=== PATIENT | female | born 1970 | race Two or more races ===

== ENCOUNTER 2016-12-05 09:30 | Emergency (ER) | payer OTHER ==
[~2016-12-05 09:30] MED LIST: /CELE20CA OR; /ESOM40CA OR; TRAM50TA2 OR
[2016-12-05] MEDS ORDERED: traMADol 50 MG TAB As Ordered ONE (09:58)
--- NOTE | 2016-12-05 13:10 | REP ---
Right lower extremity venous Doppler 12/05/2016 Indication: Right leg deformity and swelling. Comparison: None. TECHNIQUE: Color-flow Doppler spectral wave and portillo-scale imaging were used to evaluate the lower extremity vein, common femoral, superficial femoral, and popliteal venous levels. FINDINGS: There is normal compressibility of veins at the above-stated levels. There is normal response to augmentation of flow. The profunda femoris vein is also patent. IMPRESSION: No evidence of DVT in the right lower extremity. Signed by Brnadi Loza MD 12/06/2016 10:55 A
--- NOTE | 2016-12-05 13:14 | EDDOCDS ---
Nurse's Notes [facility] Name: Marge Miller Age: 45 yrs Sex: Female : 1970 Arrival Date: 12/05/2016 Time: 09:30 Bed PR Private MD: Barrie Walker R. Diagnosis: Pain in right lower leg-Negative DVT U/S Presentation: 12/05 09:36 Presenting complaint: Patient states: Pain starting 2 weeks ago to posterior right jo3 calf. Pain is non-traumatic and radiates to anterior lower leg intermittently. Unsure if there is increased redness or swelling. Adult Sepsis Screening: The patient does not have new or worsening altered mentation. Patient's respiratory rate is less than 22. Systolic blood pressure is greater than 100. Patient has a qSOFA score of 0- Negative Sepsis Screen. Suicide/Homicide risk assessment- the patient denies having any suicidal and/or homicidal ideations and does not present with any other emotional, behavioral or mental health complaints. Status: Patient is not a child and family services worker or dependent. Transition of care: patient was not received from another setting of care. 09:36 Acuity: DEACON Level 3 jo3 09:36 Method Of Arrival: Walkin/Carried/Asstd jo3 Triage Assessment: 09:39 General: Appears in no apparent distress, comfortable, Behavior is appropriate for age, jo3 cooperative. Pain: Pain currently is 8 out of 10 on a pain scale. At worst was 10 out of 10 on a pain scale. HIV screening NA for this visit Offered previously. Neurological: Level of Consciousness is awake, alert, Oriented to person, place, time. Respiratory: Airway is patent Respiratory effort is even, unlabored. Derm: Skin is pink, warm & dry. 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 Nexium 40 mg Oral cpDR 1 cap once daily 2. 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 No barriers to communication noted, The patient speaks fluent Yakut, Speaks appropriately for age. - Family history: Not pertinent. - : The pt / caregiver states he / she is not on anticoagulants. Home medication list is obtained from the patient. - Exposure Risk Screening:: None identified. Screenin:11 Screening information is obtained from the patient. Fall risk: No risks identified. jo3 Assistance ADL's: requires no assistance with activities of daily living. Abuse/DV Screen: The patient / caregiver reports he/she is: not in a situation that causes fear, pain or injury. Nutritional screening: No deficits noted. Advance Directives: There is no active DNR order. home support is adequate. Assessment: 13:11 General: Appears in no apparent distress, comfortable, Behavior is appropriate for age, jo3 cooperative. Neurological: Level of Consciousness is awake, alert, Oriented to person, place, time. Respiratory: Airway is patent Respiratory effort is even, unlabored. Vital Signs: 09:33 BP 142 / 82 LA Sitting (auto/lg); Pulse 90 LA; Resp 18 S; Temp 98.0(O); Pulse Ox 99% on mt4 R/A; Weight 136.08 kg (R); Height 5 ft. 5 in. (165.10 cm) (R); Pain 10/10; 13:00 BP 140 / 73; Pulse 81; Resp 16; Temp 98.3(TE); Pulse Ox 99% on R/A; Pain 8/10; sew 09:33 Body Mass Index 49.92 (136.08 kg, 165.10 cm) pr4 Vitals: 09:33 Log In Time: December 05, 2016 at 09:30. pr4 ED Course: 09:32 Patient visited by Melany Khan. mt4 09:32 Patient moved to Waiting mt4 09:33 Barrie Walker is Private Physician. mt4 09:34 Patient moved to Pre RCE mt4 09:38 Triage Initiated jo3 09:41 Patient visited by Yisel Aparicio RN. jo3 09:41 Patient moved to Triage 2 jo3 09:43 [facility] ef1 09:43 Chidi Strickland MD is Attending Physician. ef1 09:43 Patient visited by Luciana Gibson PA-C. ef1 09:54 [facility] Payment Agreement was scanned into [employer] and attached to record. lg 09:59 Patient moved to TR1 kr3 10:18 Patient visited by Luciana Gibson PA-C. ef1 10:57 Patient visited by Luciana Gibson PA-C. ef1 11:06 Patient moved to Ultrasound sm5 11:54 Patient visited by Luciana Gibson PA-C. ef1 11:54 Patient moved to TR1 sm5 12:27 Patient visited by Luciana Gibson PA-C. ef1 12:47 Patient moved to PR1 / 25 jo3 12:48 Barrie Walker is Referral Physician. ef1 12:48 [facility]. ef1 13:00 Patient visited by Joselin Landis. sew 13:11 The patient / caregiver is instructed regarding the plan of care and ED course. jo3 13:11 No IV's were initiated during this patient's visit. No procedures done that require jo3 assistance. Administered Medications: 10:00 Drug: traMADol 50 mg [tramadol 50 mg tablet (1 tabs)] Route: PO; jo3 Order Results: There are currently no results for this order. Outcome: 12:48 Discharge ordered by Provider. ef1 13:11 Discharge Assessment: Patient awake, alert and oriented x 3. No cognitive and/or jo3 functional deficits noted. Patient verbalized understanding of disposition instructions. patient administered narcotics - yes. Pt provided with safe discharge. The following High Risk Discharge criteria are identified: None. Discharged to home ambulatory, with friend. Condition: stable Condition: improved. Discharge instructions given to patient, Instructed on discharge instructions, follow up and referral plans. medication usage, Demonstrated understanding of instructions, medications, Pt was receptive of discharge instructions/ teaching. Prescriptions given X 2, Work note provided to patient. Ultrasound Study completed. Property sent home with patient. :Personal belongings accompany Pt. 13:13 Patient left the ED. jo3 Signatures: Michael Mccarthy, Law Reg Eva Balbuena 5 Alexandria Ortiz RN RN nancy3 Yisel Aparicio RN RN jed3 Melany Khan pr4 Luciana Gibson PA-C PA-C ef1 Joselin Landis sew MTDD
--- NOTE | 2016-12-05 13:14 | EDDOCDS ---
Physician Documentation [facility] Name: Marge Miller Age: 45 yrs Sex: Female : 1970 Arrival Date: 12/05/2016 Time: 09:30 Bed PR Private MD: Barrie Walker R. Disposition: 12/05/16 12:48 Discharged to Home/Self Care. Impression: Pain in right lower leg - Negative DVT U/S. - Condition is Stable. - Discharge Instructions: Musculoskeletal Pain. - Prescriptions for Zanaflex 4 mg Oral Tablet - take 1 tablet by ORAL route At bedtime As needed Do not take while driving/operating heavy machinery, will cause drowsiness.; 20 tablet. Tramadol 50 mg Oral Tablet - take 0.5 tablet by ORAL route 4 times per day MDD: 2 tabs; 10 tablet. - Medication Reconciliation, Work Release Form - 3 day, Local Pharmacy Hours form. - Follow up: Barrie Walker; When: 1 - 2 days; Reason: Recheck today's complaints, Continuance of care. Follow up: Emergency Department; Reason: Worsening of conditions. Follow up: [facility]; When: Call to arrange an appointment; Reason: Further diagnostic work-up, Recheck today's complaints, Continuance of care. - Problem is new. - Symptoms have improved. Historical: - Allergies: Erythromycin; - Home Meds: 1. Nexium 40 mg Oral cpDR 1 cap once daily 2. 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 No barriers to communication noted, The patient speaks fluent Malay, Speaks appropriately for age. - Family history: Not pertinent. - : The pt / caregiver states he / she is not on anticoagulants. Home medication list is obtained from the patient. - Exposure Risk Screening:: None identified. 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 5 in. (165.10 cm) (R); Pain 10/10; 13:00 BP 140 / 73; Pulse 81; Resp 16; Temp 98.3(TE); Pulse Ox 99% on R/A; Pain 8/10; sew 09:33 Body Mass Index 49.92 (136.08 kg, 165.10 cm) mt4 MDM: 09:50 Financial registration complete. lg 09:52 traMADol 50 mg PO once ordered. ef1 09:53 DVT US Lower Ordered. EDMS 09:54 [facility] Payment Agreement was scanned into [employer] and attached to record. lg Administered Medications: 10:00 Drug: traMADol 50 mg [tramadol 50 mg tablet (1 tabs)] Route: PO; jo3 Signatures: Dispatcher [employer] EDVT Michael Mccarthy Reg Reg lg Yisel Aparicio,JUAN RN jo3 Luciana Gibson PA-C PA-C ef1 The chart was reviewed and I authenticate all verbal orders and agree with the evaluation and treatment provided.Attachments: 09:54 [facility] Payment Agreement lg MTDD
--- NOTE | 2016-12-07 14:13 | EDDOCDS ---
Physician Documentation [facility] Name: Marge Miller Age: 45 yrs Sex: Female : 1970 Arrival Date: 12/05/2016 Time: 09:30 Bed PR Private MD: Barrie Walker R. Disposition: 12/05/16 12:48 Discharged to Home/Self Care. Impression: Pain in right lower leg - Negative DVT U/S. - Condition is Stable. - Discharge Instructions: Musculoskeletal Pain. - Prescriptions for Zanaflex 4 mg Oral Tablet - take 1 tablet by ORAL route At bedtime As needed Do not take while driving/operating heavy machinery, will cause drowsiness.; 20 tablet. Tramadol 50 mg Oral Tablet - take 0.5 tablet by ORAL route 4 times per day MDD: 2 tabs; 10 tablet. - Medication Reconciliation, Work Release Form - 3 day, Local Pharmacy Hours form. - Follow up: Barire Walker; When: 1 - 2 days; Reason: Recheck today's complaints, Continuance of care. Follow up: Emergency Department; Reason: Worsening of conditions. Follow up: [facility]; When: Call to arrange an appointment; Reason: Further diagnostic work-up, Recheck today's complaints, Continuance of care. - Problem is new. - Symptoms have improved. Historical: - Allergies: Erythromycin; - Home Meds: 1. Nexium 40 mg Oral cpDR 1 cap once daily 2. 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 No barriers to communication noted, The patient speaks fluent Bengali, Speaks appropriately for age. - Family history: Not pertinent. - : The pt / caregiver states he / she is not on anticoagulants. Home medication list is obtained from the patient. - Exposure Risk Screening:: None identified. 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 5 in. (165.10 cm) (R); Pain 10/10; 13:00 BP 140 / 73; Pulse 81; Resp 16; Temp 98.3(TE); Pulse Ox 99% on R/A; Pain 8/10; sew 09:33 Body Mass Index 49.92 (136.08 kg, 165.10 cm) mt4 MDM: 09:50 Financial registration complete. lg 09:52 traMADol 50 mg PO once ordered. ef1 09:53 DVT US Lower Ordered. EDMS 09:54 [facility] Payment Agreement was scanned into [employer] and attached to record. lg 21:13 T-Sheet-- Draft Copy was scanned into [employer] and attached to record. klr Administered Medications: 10:00 Drug: traMADol 50 mg [tramadol 50 mg tablet (1 tabs)] Route: PO; jo3 Signatures: Dispatcher [employer]Host EDKY Michael Mccarthy, Law Reg Yisel Aparicio RN RN jo3 Luciana Gibson, PA-C PA-C ef1 Keke Cordero klr The chart was reviewed and I authenticate all verbal orders and agree with the evaluation and treatment provided.Attachments: 09:54 [facility] Payment Agreement lg 21:13 T-Sheet-- Draft Copy klr Chart Complete MTDD
--- NOTE | 2016-12-07 14:14 | EDDOCDS ---
Physician Documentation [facility] Name: Marge Miller Age: 45 yrs Sex: Female : 1970 Arrival Date: 12/05/2016 Time: 09:30 Bed PR Private MD: Barrie Walker R. Disposition: 12/05/16 12:48 Discharged to Home/Self Care. Impression: Pain in right lower leg - Negative DVT U/S. - Condition is Stable. - Discharge Instructions: Musculoskeletal Pain. - Prescriptions for Zanaflex 4 mg Oral Tablet - take 1 tablet by ORAL route At bedtime As needed Do not take while driving/operating heavy machinery, will cause drowsiness.; 20 tablet. Tramadol 50 mg Oral Tablet - take 0.5 tablet by ORAL route 4 times per day MDD: 2 tabs; 10 tablet. - Medication Reconciliation, Work Release Form - 3 day, Local Pharmacy Hours form. - Follow up: Barrie Walker; When: 1 - 2 days; Reason: Recheck today's complaints, Continuance of care. Follow up: Emergency Department; Reason: Worsening of conditions. Follow up: [facility]; When: Call to arrange an appointment; Reason: Further diagnostic work-up, Recheck today's complaints, Continuance of care. - Problem is new. - Symptoms have improved. Historical: - Allergies: Erythromycin; - Home Meds: 1. Nexium 40 mg Oral cpDR 1 cap once daily 2. 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 No barriers to communication noted, The patient speaks fluent Tamazight, Speaks appropriately for age. - Family history: Not pertinent. - : The pt / caregiver states he / she is not on anticoagulants. Home medication list is obtained from the patient. - Exposure Risk Screening:: None identified. 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 5 in. (165.10 cm) (R); Pain 10/10; 13:00 BP 140 / 73; Pulse 81; Resp 16; Temp 98.3(TE); Pulse Ox 99% on R/A; Pain 8/10; sew 09:33 Body Mass Index 49.92 (136.08 kg, 165.10 cm) mt4 MDM: 09:50 Financial registration complete. lg 09:52 traMADol 50 mg PO once ordered. ef1 09:53 DVT US Lower Ordered. EDMS 09:54 [facility] Payment Agreement was scanned into [employer] and attached to record. lg 21:13 T-Sheet-- Draft Copy was scanned into [employer] and attached to record. klr Administered Medications: 10:00 Drug: traMADol 50 mg [tramadol 50 mg tablet (1 tabs)] Route: PO; jo3 Signatures: Dispatcher [employer] EDMO Michael Mccarthy, Law Reg Yisel Aparicio RN RN jo3 Luciana Gibson, PA-C PA-C ef1 Keke Cordero klr The chart was reviewed and I authenticate all verbal orders and agree with the evaluation and treatment provided.Attachments: 09:54 [facility] Payment Agreement lg 21:13 T-Sheet-- Draft Copy klr Chart Complete MTDD
--- NOTE | 2016-12-07 14:14 | EDDOCDS ---
Nurse's Notes [facility] Name: Marge Miller Age: 45 yrs Sex: Female : 1970 Arrival Date: 12/05/2016 Time: 09:30 Bed PR Private MD: Barrie Walker R. Diagnosis: Pain in right lower leg-Negative DVT U/S Presentation: 12/05 09:36 Presenting complaint: Patient states: Pain starting 2 weeks ago to posterior right jo3 calf. Pain is non-traumatic and radiates to anterior lower leg intermittently. Unsure if there is increased redness or swelling. Adult Sepsis Screening: The patient does not have new or worsening altered mentation. Patient's respiratory rate is less than 22. Systolic blood pressure is greater than 100. Patient has a qSOFA score of 0- Negative Sepsis Screen. Suicide/Homicide risk assessment- the patient denies having any suicidal and/or homicidal ideations and does not present with any other emotional, behavioral or mental health complaints. Status: Patient is not a student services advisor or dependent. Transition of care: patient was not received from another setting of care. 09:36 Acuity: DEACON Level 3 jo3 09:36 Method Of Arrival: Walkin/Carried/Asstd jo3 Triage Assessment: 09:39 General: Appears in no apparent distress, comfortable, Behavior is appropriate for age, jo3 cooperative. Pain: Pain currently is 8 out of 10 on a pain scale. At worst was 10 out of 10 on a pain scale. HIV screening NA for this visit Offered previously. Neurological: Level of Consciousness is awake, alert, Oriented to person, place, time. Respiratory: Airway is patent Respiratory effort is even, unlabored. Derm: Skin is pink, warm & dry. 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 Nexium 40 mg Oral cpDR 1 cap once daily 2. 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 No barriers to communication noted, The patient speaks fluent Maltese, Speaks appropriately for age. - Family history: Not pertinent. - : The pt / caregiver states he / she is not on anticoagulants. Home medication list is obtained from the patient. - Exposure Risk Screening:: None identified. Screenin:11 Screening information is obtained from the patient. Fall risk: No risks identified. jo3 Assistance ADL's: requires no assistance with activities of daily living. Abuse/DV Screen: The patient / caregiver reports he/she is: not in a situation that causes fear, pain or injury. Nutritional screening: No deficits noted. Advance Directives: There is no active DNR order. home support is adequate. Assessment: 13:11 General: Appears in no apparent distress, comfortable, Behavior is appropriate for age, jo3 cooperative. Neurological: Level of Consciousness is awake, alert, Oriented to person, place, time. Respiratory: Airway is patent Respiratory effort is even, unlabored. Vital Signs: 09:33 BP 142 / 82 LA Sitting (auto/lg); Pulse 90 LA; Resp 18 S; Temp 98.0(O); Pulse Ox 99% on mt4 R/A; Weight 136.08 kg (R); Height 5 ft. 5 in. (165.10 cm) (R); Pain 10/10; 13:00 BP 140 / 73; Pulse 81; Resp 16; Temp 98.3(TE); Pulse Ox 99% on R/A; Pain 8/10; sew 09:33 Body Mass Index 49.92 (136.08 kg, 165.10 cm) id4 Vitals: 09:33 Log In Time: December 05, 2016 at 09:30. id4 ED Course: 09:32 Patient visited by Melany Khan. mt4 09:32 Patient moved to Waiting mt4 09:33 Barrie Walker is Private Physician. mt4 09:34 Patient moved to Pre RCE mt4 09:38 Triage Initiated jo3 09:41 Patient visited by Yisel Aparicio RN. jo3 09:41 Patient moved to Triage 2 jo3 09:43 Luciana Gibson PA-C [facility]. ef1 09:43 Chidi Strickland MD is Attending Physician. ef1 09:43 Patient visited by Luciana Gibson PA-C. ef1 09:54 [facility] [place] [facility] Payment Agreement was scanned into [employer] and attached to record. lg 09:59 Patient moved to TR1 kr3 10:18 Patient visited by Luciana Gibson PA-C. ef1 10:57 Patient visited by Luciana Gibson PA-C. ef1 11:06 Patient moved to Ultrasound sm5 11:54 Patient visited by Luciana Gibson PA-C. ef1 11:54 Patient moved to TR1 sm5 12:27 Patient visited by Luciana Gibson PA-C. ef1 12:47 Patient moved to PR1 / 25 jo3 12:48 Barrie Walker is Referral Physician. ef1 12:[facility]. ef1 13:00 Patient visited by Joselin Landis. sew 13:11 The patient / caregiver is instructed regarding the plan of care and ED course. jo3 13:11 No IV's were initiated during this patient's visit. No procedures done that require jo3 assistance. 13:44 DVT US Lower Returned. EDHI 21:13 T-Sheet-- Draft Copy was scanned into [employer] and attached to record. klr Administered Medications: 10:00 Drug: traMADol 50 mg [tramadol 50 mg tablet (1 tabs)] Route: PO; jo3 Order Results: Radiology Order: DVT US Lower Test: DVT US Lower REASON FOR EXAMINATION: Deformity/Swelling; Right lower extremity venous Doppler 12/05/2016; ; Indication: Right leg deformity and swelling.; ; Comparison: None.; ; TECHNIQUE: Color-flow Doppler spectral wave and portillo-scale imaging were used to; evaluate the lower extremity vein, common femoral, superficial femoral, and; popliteal venous levels.; ; FINDINGS: There is normal compressibility of veins at the above-stated levels.; There is normal response to augmentation of flow. The profunda femoris vein is; also patent.; ; IMPRESSION:; ; No evidence of DVT in the right lower extremity.; ; ; ; ; Signed by; Brandi Loza MD 12/06/2016 10:55 A; Outcome: 12:48 Discharge ordered by Provider. ef1 13:11 Discharge Assessment: Patient awake, alert and oriented x 3. No cognitive and/or jo3 functional deficits noted. Patient verbalized understanding of disposition instructions. patient administered narcotics - yes. Pt provided with safe discharge. The following High Risk Discharge criteria are identified: None. Discharged to home ambulatory, with friend. Condition: stable Condition: improved. Discharge instructions given to patient, Instructed on discharge instructions, follow up and referral plans. medication usage, Demonstrated understanding of instructions, medications, Pt was receptive of discharge instructions/ teaching. Prescriptions given X 2, Work note provided to patient. Ultrasound Study completed. Property sent home with patient. :Personal belongings accompany Pt. 13:13 Patient left the ED. jo3 Signatures: Dispatcher [employer] EDMS Michael Mccarthy, Reg Reg lg Eva Meyer 5 Alexandria Ortiz,RN RN kr3 Yisel AparicioRN RN jo3 Melany Khan mt4 Luciana Gibson, PA-C PA-C efOlena Landis, Keke Whiteside Chart Complete MTDD
== END 2016-12-05 13:13 | disposition home or self-care (01) ==
LOC: M ED 09:30
DX: M79.661 Pain in right lower leg (principal); K21.9 Gastro-esophageal reflux disease without esophagitis; K91.1 Postgastric surgery syndromes; F17.210 Nicotine dependence, cigarettes, uncomplicated; Z79.899 Other long term (current) drug therapy; Z88.1 Allergy status to other antibiotic agents

== ENCOUNTER → 2017-03-21 | Outpatient (CLI) | payer OTHER ==
--- NOTE | 2017-03-21 10:32 | REPMRS ---
Patient History The patient states she had a clinical breast exam in 03/30 No known family history of cancer. Benign FNA biopsy of both breasts, 1993. Digital Woman Screen Mammo: March 21, 2017 - Exam #: [id number] Bilateral CC and MLO view(s) were taken. Technologist: Jenifer Almonte, Technologist Prior study comparison: December 10, 2015, digital woman screen mammo performed at [facility]. February 04, 2014, digital woman screen mammo performed at [facility] to [facility]. FINDINGS: There are scattered fibroglandular densities. There has been no change in the appearance of the mammogram from the prior studies. There is a mild amount of residual fibroglandular tissue which is fairly symmetric. There is no interval development of dominant mass, architectural distortion, or clustered microcalcification suggestive of malignancy. ASSESSMENT: BI-RADS/ACR category 1 mammogram. Negative. Recommendation Routine screening mammogram in 1 year (for women over age 40). This mammogram was interpreted with the aid of an FDA-approved computer-aided dectection system. Electronically Signed By: Gilson Aguayo MD 03/21/17 [id number]
== END ==
LOC: M WHC 08:30
PROVIDERS: ATTEND Nurse Practitioner Family
DX: Z12.31 Encounter for screening mammogram for malignant neoplasm of breast (principal)

== ENCOUNTER → 2017-03-21 | Outpatient (REF) | payer OTHER | LOC: M SFHCWAGY 10:40 | PROVIDERS: ATTEND Nurse Practitioner Family | DX: Z01.419 Encounter for gynecological examination (general) (routine) without abnormal findings (principal) ==

== ENCOUNTER → 2017-04-13 | Outpatient (REF) | payer OTHER | LOC: M SFHCWAGY 11:01 | PROVIDERS: ATTEND Nurse Practitioner Family | DX: R87.619 Unspecified abnormal cytological findings in specimens from cervix uteri (principal) ==

== ENCOUNTER → 2017-04-27 | Outpatient (CLI) | payer OTHER | LOC: M WHC 08:12 | PROVIDERS: ATTEND Nurse Practitioner Family | DX: N92.0 Excessive and frequent menstruation with regular cycle (principal) ==

== ENCOUNTER 2017-07-24 14:22 | Emergency (ER) | payer OTHER ==
[~2017-07-24] VITALS: Ht 162.6 cm; Wt 145.4 kg
[2017-07-24] MEDS ORDERED: ALBU17IN INH ×2 (14:36→17:10)
[2017-07-24] MEDS ORDERED: GABA-283 PO (14:37)
--- NOTE | 2017-07-24 16:24 | REP ---
Clinical: Cough and wheeze. Technique: PA and lateral. Comparison: 06/01/2011. Findings: Mediastinum and cardiac silhouette are normal. Lung soriano are clear. No focal consolidation, effusion, or pneumothorax. Skeletal structures are intact. Impression: No acute cardiopulmonary process or focal consolidation Signed by Lio Ochoa MD 07/24/2017 04:15 P
[2017-07-24 16:34] LABS: BASO % 0.4 % (0.0-1.0); EOS # 0.1 K/mm3 (0.0-0.50); LARGE UNSTAINED CELL # 0.1 K/mm3 (0.0-0.4); LARGE UNSTAINED CELL % 1.7 % (0.0-4.0); LYMPH # 2.8 K/mm3 (1.5-4.5); LYMPH % 35.3 % (24.0-44.0); MEAN CORPUSCULAR HGB CONC 33.8 g/dl (32.0-36.5); MEAN CORPUSCULAR VOLUME 94.6 fl (80.0-96.0); MONO # 0.4 K/mm3 (0.0-0.8); MONO % 4.9 % (0.0-5.0); NEUTROPHILS # 4.3 K/mm3 (1.8-7.7); NEUTROPHILS % 56.7 % (36.0-66.0); PLATELET COUNT, AUTOMATED 265 k/mm3 (150-450); RED CELL DISTRIBUTION WIDTH 12.8 % (11.5-14.5); WHITE BLOOD COUNT 7.6 K/mm3 (4.0-10.0)
[2017-07-24 16:54] LABS: ALBUMIN 3.7 GM/DL (3.2-5.2); ALBUMIN/GLOBULIN RATIO 0.97 (1.00-1.93); ALKALINE PHOSPHATASE 76 U/L (45-117); ALT/SGPT 23 U/L (12-78); ANION GAP 7 MEQ/L (8-16); AST/SGOT 14 U/L (15-37); BILIRUBIN,DIRECT < 0.1 MG/DL (0.0-0.2); BILIRUBIN,TOTAL 0.3 MG/DL (0.2-1.0); BLOOD UREA NITROGEN 14 MG/DL (7-18); CARBON DIOXIDE LEVEL 25 MEQ/L (21-32); CHLORIDE LEVEL 108 MEQ/L (98-107); CREATININE FOR GFR 0.75 MG/DL (0.55-1.02); GLOMERULAR FILTRATION RATE > 60.0 (>58); GLUCOSE, FASTING 91 MG/DL (70-105); POTASSIUM SERUM 3.9 MEQ/L (3.5-5.1); SODIUM LEVEL 140 MEQ/L (136-145); TOTAL PROTEIN 7.5 GM/DL (6.4-8.2)
[2017-07-24 17:10] VITALS: BP 136/72
--- NOTE | 2017-07-24 18:26 | ECGEPIP ---
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
== END 2017-07-24 17:12 | disposition home or self-care (01) ==
LOC: M ED 14:22
DX: K21.9 Gastro-esophageal reflux disease without esophagitis (principal); K31.89 Other diseases of stomach and duodenum; F17.210 Nicotine dependence, cigarettes, uncomplicated; E88.1 Lipodystrophy, not elsewhere classified; Z91.048 Other nonmedicinal substance allergy status; Z79.899 Other long term (current) drug therapy

== ENCOUNTER 2017-10-10 17:02 | Emergency (ER) | payer OTHER ==
[~2017-10-10] VITALS: Ht 165.1 cm; Wt 159.1 kg
[~2017-10-10 17:02] MED LIST changes: +ALBU17IN INH; +GABA-283 PO
--- NOTE | 2017-10-10 18:41 | REP ---
Duplex extremity venous ultrasound: Right lower extremity edilberto History: Right leg pain times 1 month. Findings: The deep veins are anechoic and fully compressible from the groin to the popliteal fossa in the right lower extremity. Color flow imaging is homogeneous. Spectral Doppler interrogation demonstrates intact respiratory variation in flow and normal manual augmentation of flow. There is no evidence of deep vein thrombosis. Impression: Negative right lower extremity duplex venous ultrasound. No evidence of deep vein thrombosis. Signed by Wild Livingston MD 10/10/2017 06:32 P
[2017-10-10] MEDS ORDERED: ALBUTEROL SULFATE 2.5 MG/0.5 ML INH NEB SOLN NEB ONE (20:45)
[2017-10-10 21:04] LABS: BASO % 0.1 % (0.0-1.0); EOS % 0.1 % (0.0-3.0); IMMATURE GRANULOCYTE % 0.2 % (0-0); LYMPH # 2.3 10^3/uL (1.5-4.5); LYMPH % 26.6 % (24.0-44.0); MEAN CORPUSCULAR HEMOGLOBIN 31.1 pg (27.0-33.0); MEAN CORPUSCULAR HGB CONC 34.1 g/dl (32.0-36.5); MEAN CORPUSCULAR VOLUME 91.4 fl (80.0-96.0); MONO # 0.5 10^3/uL (0.0-0.8); MONO % 5.3 % (0.0-5.0); NEUTROPHILS # 5.8 10^3/uL (1.8-7.7); NEUTROPHILS % 67.7 % (36.0-66.0); PLATELET COUNT, AUTOMATED 281 10^3/uL (150-450); RED CELL DISTRIBUTION WIDTH 12.7 % (11.5-14.5); WHITE BLOOD COUNT 8.5 10^3/uL (4.0-10.0)
[2017-10-10 21:23] LABS: ANION GAP 8 MEQ/L (8-16); BLOOD UREA NITROGEN 11 MG/DL (7-18); CALCIUM LEVEL 8.9 MG/DL (8.5-10.1); CARBON DIOXIDE LEVEL 26 MEQ/L (21-32); CHLORIDE LEVEL 107 MEQ/L (98-107); CREATININE FOR GFR 0.76 MG/DL (0.55-1.02); GLOMERULAR FILTRATION RATE > 60.0 (>58); GLUCOSE, FASTING 100 MG/DL (70-105); SODIUM LEVEL 141 MEQ/L (136-145)
[2017-10-10] MEDS ORDERED: AUGM875T28 PO (21:31)
[2017-10-10] MEDS ORDERED: PROAAER10 INH (21:35)
[2017-10-10 21:53] VITALS: BP 126/79
[2017-10-10] MEDS ORDERED: AUGMENTIN 875 MG TAB PO ONE (22:00)
== END 2017-10-10 21:57 | disposition home or self-care (01) ==
LOC: M ED 17:02
DX: J02.0 Streptococcal pharyngitis (principal); J20.9 Acute bronchitis, unspecified; E86.0 Dehydration; Z72.0 Tobacco use

== ENCOUNTER 2019-04-15 16:33 | Emergency (ER) | payer BC, OTHER ==
[~2019-04-15] VITALS: Ht 165.1 cm; Wt 134.1 kg
[~2019-04-15 16:33] MED LIST changes: -/CELE20CA OR; -/ESOM40CA OR; +AUGM875T28 PO; +CELE1CAP4 OR; -GABA-283 PO; +GABA-845 PO; +NEXI1CAP3 OR; +PROAAER10 INH
[2019-04-15 17:07] LABS: BASO % 0.7 % (0.0-1.0); EOS # 0.4 10^3/uL (0.0-0.50); EOS % 6.5 % (0.0-3.0); HEMATOCRIT 41.5 % (36.0-47.0); LYMPH # 2.4 10^3/uL (1.5-4.5); LYMPH % 39.7 % (24.0-44.0); MEAN CORPUSCULAR HEMOGLOBIN 31.8 pg (27.0-33.0); MEAN CORPUSCULAR HGB CONC 33.7 g/dl (32.0-36.5); MEAN CORPUSCULAR VOLUME 94.3 fl (80.0-96.0); MONO # 0.4 10^3/uL (0.0-0.8); MONO % 6.2 % (0.0-5.0); NEUTROPHILS # 2.8 10^3/uL (1.8-7.7); NEUTROPHILS % 46.7 % (36.0-66.0); PLATELET COUNT, AUTOMATED 244 10^3/uL (150-450)
[2019-04-15 17:30] LABS: ALBUMIN 3.3 GM/DL (3.2-5.2); ALT/SGPT 29 U/L (12-78); BILIRUBIN,DIRECT < 0.1 MG/DL (0.0-0.2); BILIRUBIN,TOTAL 0.2 MG/DL (0.2-1.0); BLOOD UREA NITROGEN 13 MG/DL (7-18); CALCIUM LEVEL 8.9 MG/DL (8.5-10.1); CARBON DIOXIDE LEVEL 28 MEQ/L (21-32); CHLORIDE LEVEL 109 MEQ/L (98-107); CREATININE FOR GFR 0.81 MG/DL (0.55-1.30); GLOMERULAR FILTRATION RATE > 60.0 (>51); GLUCOSE, FASTING 125 MG/DL (70-100); LIPASE 120 U/L (73-393); POTASSIUM SERUM 4.5 MEQ/L (3.5-5.1); SODIUM LEVEL 143 MEQ/L (136-145); TOTAL PROTEIN 6.7 GM/DL (6.4-8.2)
[2019-04-15] MEDS ORDERED: SYMB16INH INH ×2 (18:44→18:49)
[2019-04-15] MEDS ORDERED: PRED20TA PO (18:48)
[2019-04-15] MEDS ORDERED: CARA1TAB6 PO (18:48)
[2019-04-15] MEDS ORDERED: OMEP40CA2 PO (18:48)
[2019-04-15] MEDS ORDERED: CLAR10CA3 PO (18:48)
[2019-04-15 19:02] VITALS: BP 134/61
== END 2019-04-15 19:13 | disposition home or self-care (01) ==
LOC: M ED 16:33
DX: Z76.0 Encounter for issue of repeat prescription (principal); J45.909 Unspecified asthma, uncomplicated; K21.9 Gastro-esophageal reflux disease without esophagitis; Z79.899 Other long term (current) drug therapy; F17.210 Nicotine dependence, cigarettes, uncomplicated

== ENCOUNTER → 2019-08-22 | Outpatient (CLI) | payer BC ==
[~2019-08-22] MED LIST changes: +CARA1TAB6 PO; +CLAR10CA3 PO; +OMEP40CA2 PO; +PRED20TA PO; +SYMB16INH INH
--- NOTE | 2019-08-22 12:32 | REP ---
Gastric emptying nuclear scintigraphy: History: Right upper quadrant pain. Gastric para cyst. Technique: 1.1 mCi of technetium-99m sulfur colloid was ingested in two scrambled eggs and 6 ounces of water and sequential anterior and posterior images are acquired for an 89-minute imaging observation period. Regions of interest are drawn around the stomach to plot gastric emptying. Scintigraphic findings: Expected T1/2 is 90 minutes. 44 % emptying is observed in this patient during the 89-minute imaging observation period, for a calculated T1/2 in this patient of 94 minutes. Impression: Normal gastric emptying. Electronically Signed by Wild Livingston MD 08/22/2019 12:23 P
== END ==
LOC: M RAD 08:50
PROVIDERS: ATTEND Internal Medicine Gastroenterology
DX: K31.84 Gastroparesis (principal); K30 Functional dyspepsia; R10.11 Right upper quadrant pain
CPT/HCPCS: 78264; A9541

== ENCOUNTER → 2019-12-20 | Outpatient (REF) | payer BC ==
[~2019-12-20] MED LIST changes: -OMEP40CA2 PO; +OMEP40CA97 PO
== END ==
LOC: M SFHCLERA 08:20
PROVIDERS: ATTEND Nurse Practitioner Family
DX: Z53.9 Procedure and treatment not carried out, unspecified reason (principal)

== ENCOUNTER 2020-05-20 08:27 | Emergency (ER) | payer BC ==
[~2020-05-20] VITALS: Ht 162.6 cm; Wt 150.3 kg
[2020-05-20] MEDS ORDERED: LIDOCAINE 5% (LIDODERM) PATCH TD ONE (09:45)
[2020-05-20] MEDS ORDERED: CYCLOBENZAPRINE 10MG TABLET PO ONE (09:45)
[2020-05-20] MEDS ORDERED: KETOROLAC 30 MG/ML 1ML VIAL IV ONE (10:30)
[2020-05-20 11:48] VITALS: BP 158/91
[2020-05-20] MEDS ORDERED: CYCL7.5T32 PO (11:54)
[2020-05-20] MEDS ORDERED: IBUP80TA PO (11:54)
[2020-05-20] MEDS ORDERED: LIDO5DIS41 TOP (12:09)
[2020-05-20] MEDS ORDERED: **NOTE PATIENT COMMENT** MISC XX SCH (21:00)
== END 2020-05-20 12:12 | disposition home or self-care (01) ==
LOC: M ED 08:27
DX: M62.830 Muscle spasm of back (principal); K21.9 Gastro-esophageal reflux disease without esophagitis; F17.200 Nicotine dependence, unspecified, uncomplicated; Z79.899 Other long term (current) drug therapy; Z88.1 Allergy status to other antibiotic agents; Z91.048 Other nonmedicinal substance allergy status
CPT/HCPCS: 80047; 81001; 96374; 99284; J1885

== ENCOUNTER 2021-03-01 16:08 | Inpatient (IN) | payer BC ==
[~2021-03-01] VITALS: Ht 162.6 cm; Wt 152.4 kg
[~2021-03-01 16:08] MED LIST changes: +CYCL7.5T32 PO; +IBUP80TA PO; +LIDO5DIS41 TOP
[2021-03-01] MEDS ORDERED: methylPREDNISolone 125MG 2ML VIAL IV ONE (17:35)
[2021-03-01] MEDS ORDERED: COMBIVENT RESPIMAT 100-20MCG INHALER 4GM INH STA ×2 (17:35→20:06)
[2021-03-01] MEDS ORDERED: AMOX875T2 PO (18:02)
[2021-03-01] MEDS ORDERED: ALBU83IN NEB (18:02)
[2021-03-01] MEDS ORDERED: CETI10CH PO (18:02)
[2021-03-01 18:04] LABS: BASO % 0.5 % (0.0-1.0); EOS % 0.1 % (0.0-3.0); HEMATOCRIT 45.1 % (36.0-47.0); HEMOGLOBIN 14.3 g/dl (12.0-15.5); LYMPH # 0.6 10^3/uL (1.5-5.0); LYMPH % 7.1 % (24.0-44.0); MEAN CORPUSCULAR HEMOGLOBIN 26.8 pg (27.0-33.0); MEAN CORPUSCULAR HGB CONC 31.7 g/dl (32.0-36.5); MEAN CORPUSCULAR VOLUME 84.6 fl (80.0-96.0); MONO # 0.2 10^3/uL (0.0-0.8); MONO % 2.6 % (2.0-8.0); NEUTROPHILS # 7.2 10^3/uL (1.5-8.5); NEUTROPHILS % 89.6 % (36.0-66.0); PLATELET COUNT, AUTOMATED 303 10^3/uL (150-450); RED BLOOD COUNT 5.33 10^6/uL (4.00-5.40); WHITE BLOOD COUNT 8.1 10^3/uL (4.0-10.0)
[2021-03-01 18:42] LABS: ALBUMIN 3.6 GM/DL (3.2-5.2); ALT/SGPT 37 U/L (12-78); BILIRUBIN,DIRECT 0.1 MG/DL (0.0-0.2); BILIRUBIN,TOTAL 0.3 MG/DL (0.2-1.0); BLOOD UREA NITROGEN 10 MG/DL (7-18); CALCIUM LEVEL 9.2 MG/DL (8.5-10.1); CARBON DIOXIDE LEVEL 27 MEQ/L (21-32); CHLORIDE LEVEL 107 MEQ/L (98-107); CK-MB VALUE MASS < 1.0 NG/ML (<3.6); CPK CREATINE PHOSPHOKINASE 112 U/L (26-192); CREATININE FOR GFR 0.84 MG/DL (0.55-1.30); GLOMERULAR FILTRATION RATE > 60.0 (>51); GLUCOSE, FASTING 132 MG/DL (70-100); MB/CK RELATIVE INDEX 0.89 (< OR =4); NT-PRO BNP 72 PG/ML (<125); POTASSIUM SERUM 4.4 MEQ/L (3.5-5.1); SODIUM LEVEL 141 MEQ/L (136-145); THYROID STIMULATING HORMONE 0.736 uIU/ML (0.358-3.740); THYROXINE (T4) 9.2 UG/DL (4.5-12.0); TOTAL PROTEIN 7.7 GM/DL (6.4-8.2); TROPONIN I < 0.02 NG/ML (< 0.10)
[2021-03-01] MEDS ORDERED: MAG SULF 1GM/100ML (MAG RUN) 1 GM in IV 1 EA IV ONE ×2 (20:10→22:35)
--- NOTE | 2021-03-01 20:12 | REPVR ---
PROCEDURE INFORMATION: Exam: XR Chest Exam date and time: 03/01/2021 6:10 PM Age: 50 years old Clinical indication: Cough and dyspnea; Additional info: Dyspnea/cough TECHNIQUE: Imaging protocol: XR of the chest. Views: 1 view. COMPARISON: CR Chest, 2 view PA, Lat 07/24/2017 4:16 PM FINDINGS: Lungs: Unremarkable. No consolidation. Pleural spaces: Unremarkable. No pleural effusion. No pneumothorax. Heart/Mediastinum: Unremarkable. No cardiomegaly. Bones/joints: Unremarkable. IMPRESSION: No acute findings. Electronically signed by: Ruperto Hart On 03/01/2021 20:13:07 PM
[2021-03-01] MEDS ORDERED: ISOVUE-370 76% 100ML VIAL As Ordered ONE (21:21)
--- NOTE | 2021-03-01 21:57 | REPVR ---
PROCEDURE INFORMATION: Exam: CTA Chest With Contrast Exam date and time: 03/01/2021 9:29 PM Age: 50 years old Clinical indication: Shortness of breath; Additional info: SOB; R/O pe TECHNIQUE: Imaging protocol: Computed tomographic angiography of the chest with contrast. 3D rendering (Not supervised by radiologist): MIP and/or 3D reconstructed images were created by the technologist. Radiation optimization: All CT scans at this facility use at least one of these dose optimization techniques: automated exposure control; mA and/or kV adjustment per patient size (includes targeted exams where dose is matched to clinical indication); or iterative reconstruction. Contrast material: ISOVUE 370; Contrast volume: 75 ml; Contrast route: INTRAVENOUS (IV); COMPARISON: CR PORTABLE CHEST X-RAY 03/01/2021 5:45 PM FINDINGS: Pulmonary arteries: There are no pulmonary emboli. Aorta: There is no aortic dissection or aneurysm. Lungs: Bilateral ground-glass opacities predominantly peripheral in location. Findings suspect for multifocal pneumonitis. Pleural spaces: Unremarkable. No pneumothorax. No pleural effusion. Heart: Unremarkable. No cardiomegaly. No pericardial effusion. Lymph nodes: Unremarkable. No enlarged lymph nodes. Bones/joints: The spine demonstrates mild degenerative changes. Soft tissues: Unremarkable. IMPRESSION: 1. Bilateral ground-glass opacities predominantly peripheral in location. Findings suspect for multifocal pneumonitis. 2. There is no aortic dissection or aneurysm. 3. There are no pulmonary emboli. Electronically signed by: Ruperto Hart On 03/01/2021 21:58:21 PM
[2021-03-01] MEDS ORDERED: IPRATROPIUM 0.5MG/ALBUTEROL 2.5MG INH SOL UD 3ML (DUONEB) NEB ONE (22:50)
[2021-03-01 23:48] LABS: MAGNESIUM LEVEL 2.1 MG/DL (1.8-2.4)
[2021-03-02] VITALS (16 sets, daily range): BP systolic 107–162; BP diastolic 58–90; O2SAT 86–94
[2021-03-02] MEDS ORDERED: NICOTINE 21MG/24HR 1 EA TRANSDERMAL TD ONE (00:15)
[2021-03-02] MEDS ORDERED: ALBU8.5H INH (00:21)
[2021-03-02] MEDS ORDERED: OMEP-221 PO (00:21)
[2021-03-02] MEDS ORDERED: ACET-683 PO (00:22)
[2021-03-02] MEDS ORDERED: ACETAMINOPHEN TAB 650MG DOSE (2X325MG) PO PRN (00:50)
[2021-03-02] MEDS ORDERED: MOM 30ML SUSPENSION UDC PO PRN (00:50)
[2021-03-02] MEDS ORDERED: ALBUTEROL 90 MCG/ACT 8GM HFA INHALER INH PRN (00:50)
[2021-03-02] MEDS ORDERED: MAALOX 30 ML SUSP *UDC PO PRN (00:50)
[2021-03-02] MEDS ORDERED: BENZONATATE 100 MG CAP PO PRN (01:00)
--- NOTE | 2021-03-02 01:22 | HPEPDOC ---
[facility] Medical History & Physical Date of Admission Mar 02, 2021 Date of Service: Mar 02, 2021 Attending Physician: JESSICA AVINA MD History and Physical CHIEF COMPLAINT: [50 y/o female c/o sob x "a few months"] HISTORY OF PRESENT ILLNESS: [This is a 50 y/o female with a pmh of asthma who presents to the ED on 03/01 with a c/c of sob that has begun worsening over the past few months that has gotten acutely worse in the past 3-4 days. Patient states that her shortness of breath is worsened with exertion but she has also noticed it as rest. Patient has tried her at home inhalers to no help. Patient states she has also been experiencing some fevers, chills and nonproductive cough the past 3-4 days. Patient is current ppd smoker. Denies chest pain, dizziness, syncope, abd pain, n/v/d, back pain, dysuria. Patient was recent seen and diagnosed with strep throat. Currently on augmentin.] PAST MEDICAL HISTORY: 1. [See HPI PAST SURGICAL HISTORY: 1. [C section]. 2. [Cholecystectomy]. SOCIAL HISTORY: Tobacco use:[Current ppd smoker - 40 pack years] ETOH: [Denies] Illicit drug use: [Denies] FAMILY HISTORY: Reviewed with pt - none ALLERGIES: Please see below. REVIEW OF SYSTEMS: CONSTITUTIONAL: [See HPI]. HEENT: [See HPI]. CARDIOVASCULAR: [See HPI]. RESPIRATORY: [See HPI]. GASTROINTESTINAL: [See HPI]. GENITOURINARY: [See HPI]. SKIN: [Denies rash]. MUSCULOSKELETAL: [Denies acute joint pain]. NEUROLOGICAL: [Denies paresthesias]. ENDOCRINE: [Denies hx of dm]. HEMATOLOGIC/LYMPHATIC: [Denies easy bruising]. HOME MEDICATIONS: Please see below. PHYSICAL EXAMINATION: VITAL SIGNS: Please see below GENERAL APPEARANCE: [This is an obese 50 year old female. She is seated on the side of the bed and breathing heavily through a rebreather mask.]. HEENT: [No mass or lesion. EOMI. No scleral icterus or conjunctival erythema. Nares patent. Oral mucosa moist. ]. CARDIOVASCULAR: [Borderline tachy rate, regular rhythm. No murmurs, rubs or gallops]. LUNGS: [Diffuse inspiratory wheezing]. ABDOMEN: [Soft, non-tender]. MUSCULOSKELETAL: [No joint deformity]. EXTREMITIES: [Mild non-pitting edema to b/l lower extremities. No overlying skin changes. No clubbing, cyanosis]. NEUROLOGICAL: [Speech clear. A+Ox3. no focal deficits]. PSYCHIATRIC: [Depressed mood. Affect appears appropriate]. LABORATORY DATA: See below. IMAGING: [Chest x-ray: FINDINGS: Lungs: Unremarkable. No consolidation. Pleural spaces: Unremarkable. No pleural effusion. No pneumothorax. Heart/Mediastinum: Unremarkable. No cardiomegaly. Bones/joints: Unremarkable. IMPRESSION: No acute findings. CTA chest: FINDINGS: Pulmonary arteries: There are no pulmonary emboli. Aorta: There is no aortic dissection or aneurysm. Lungs: Bilateral ground-glass opacities predominantly peripheral in location. Findings suspect for multifocal pneumonitis. Pleural spaces: Unremarkable. No pneumothorax. No pleural effusion. Heart: Unremarkable. No cardiomegaly. No pericardial effusion. Lymph nodes: Unremarkable. No enlarged lymph nodes. Bones/joints: The spine demonstrates mild degenerative changes. Soft tissues: Unremarkable. IMPRESSION: 1. Bilateral ground-glass opacities predominantly peripheral in location. Findings suspect for multifocal pneumonitis. 2. There is no aortic dissection or aneurysm. 3. There are no pulmonary emboli. ] MICROBIOLOGY: Please see below. ASSESSMENT: [This is a 50 year old female with a heavy smoking history and asthma who presents to the ed with progressively worsening sob. Patient in the ED found to have pneumonitis on CTA and non covid coronavirus on respiratory panel. Patient is only on albuterol at home for her asthma, and likely needs better control if she has been having dyspnea this long. Patient may also have some underlying COPD from her smoking hx and sleep apnea due to her weight and elevated BP.]. . PLAN: 1. [Acute Asthma exacerbation secondary to viral pneumonia. - As stated in assessment, patient may have underlying copd which could explain the long duration of her symptoms. if this is the case, patient will need better inhaler control at home - Patient has non-covid coronavirus pneumonia - Will treat fever with tylenol - Will be giving supplemental o2 via high flow nasal canula with goal o2 sat >90% - Patient received 125mg solumedrol in ed, will begin 40 mg prednisone daily on the floor - Will begin albuterol q1h, duonebs q6h - Will begin advair - Continue at home cetirizine - admit under obs to pcu with pulse ox monitoring 2. HTN - patients blood pressure high upon presentation to the ed. numbers are more acceptable upon my evaluation - will monitor 3. Nicotine use - Nicoderm patch 4. Obesity - unfortunately complicates care, especially respiratory complaints 5. DVT prophylaxis - Lovenox]. Vital Signs Vital Signs Date Time Temp Pulse Resp B/P (MAP) Pulse Ox O2 Delivery O2 Flow Rate FiO2 03/01/21 23:04 98.9 97 18 93 High Flow Cannula 15.0 100 03/01/21 23:00 158/65 (96) Laboratory Data Labs 24H Laboratory Tests 2 03/01/21 17:35: Immature Granulocyte % (Auto) 0.1, Neutrophils (%) (Auto) 89.6H, Lymphocytes (%) (Auto) 7.1L, Monocytes (%) (Auto) 2.6, Eosinophils (%) (Auto) 0.1, Basophils (%) (Auto) 0.5, Neutrophils # (Auto) 7.2, Lymphocytes # (Auto) 0.6L, Monocytes # (Auto) 0.2, Eosinophils # (Auto) 0.0, Basophils # (Auto) 0.0, Nucleated Red Blood Cells % (auto) 0.0, Anion Gap 7L, Glomerular Filtration Rate > 60.0, Calcium Level 9.2, Magnesium Level 2.1, Total Bilirubin 0.3, Direct Bilirubin 0.1, Aspartate Amino Transf (AST/SGOT) 20, Alanine Aminotransferase (ALT/SGPT) 37, Alkaline Phosphatase 98, Total Creatine Kinase 112, Creatine Kinase MB < 1.0, Creatine Kinase MB Relative Index 0.89, Troponin I < 0.02, CS-Lek-Q-Type Natriuretic Peptide 72, Total Protein 7.7, Albumin 3.6, Albumin/Globulin Ratio 0.9L, Thyroid Stimulating Hormone (TSH) 0.736, Thyroxine (T4) 9.2 CBC/BMP Laboratory Tests 03/01/21 17:35 Microbiology Microbiology 03/01/21 Respiratory Virus Panel (PCR) ([facility]) - Final, Complete Coronavirus 229E Home Medications Scheduled Amoxicillin/Potassium Clav (Amox-Clav 875-125 mg Tablet) 1 Each Tablet, 1 TAB PO BID STARTED 02/27/21 X 10 DAYS Beclomethasone Dipropionate (Qvar Redihaler) 40 Mcg/Act Hfa.aeroba, 2 PUFF INH BID Cetirizine HCl (Cetirizine HCl) 10 Mg Tab.chew, 10 MG PO DAILY Omeprazole (Omeprazole) 40 Mg Capsule.dr, 40 MG PO BID Scheduled PRN Acetaminophen (Acetaminophen) 500 Mg Tablet, 1,000 MG PO BID PRN for PAIN Albuterol Sulf (Albuterol Sulfate) 2.5 Mg/3 Ml Vial.neb, 2.5 MG NEB Q8H PRN for SHORTNESS OF BREATH Albuterol Sulfate (Albuterol Sulfate Hfa) 8.5 Gm Hfa.aer.ad, 1 PUFF INH Q4H PRN for SHORTNESS OF BREATH Allergies Coded Allergies: TAPE (Verified Allergy, Mild, BLISTERS, PAPER TAPE OK, 04/26/11) erythromycin base (Verified Allergy, Unknown, 04/15/19) A-FIB/CHADSVASC A-FIB History Current/History of A-Fib/PAF?: No Attending Note Attending Note Time of service 130am is a 50 yr old F w a 40 pack yr habit of smoking, Asthma, HTN and class 3 obesity who presented w c/o acute on chronic dyspnea; she will be admitted for Acute Asthma and Sepsis (tachycardia & tachypnea) 2/ Cornavirus 299E. When she is ready to be discharged per MOISES 2020 guidelines she will need to be switched from a KYLEE (albuterol) PRN as to an ICS (beclamethasone ) 12H. We will also check her A1C and order smoking cessation education. Rest per GAYLE Austin's H&P MONE [place] Mar 02, 2021 01:22 JESSICA AVINA MD Mar 02, 2021 02:13
[2021-03-02] MEDS: IPRATROPIUM 0.5MG/ALBUTEROL 2.5MG INH SOL UD 3ML (DUONEB) NEB SCH ×2 (01:30→06:49)
[2021-03-02 01:43] LABS: VENOUS BASE EXCESS -2.1 (-2.0-2.0); VENOUS HCO3 23.5 MEQ/L (23.0-27.0); VENOUS O2 SATURATION 80.2 % (60.0-80.0); VENOUS PARTIAL PRESSURE CO2 43.5 mmHg (38.0-50.0); VENOUS PARTIAL PRESSURE O2 47.1 mmHg (30.0-50.0); VENOUS PH 7.351 UNITS (7.330-7.430); VENOUS STANDARD HCO3 22.3 MEQ/L; VENOUS TOTAL CO2 24.9 MEQ/L (24.0-28.0)
[2021-03-02] MEDS ORDERED: QVAR40AE12 INH (02:12)
[2021-03-02] MEDS: ADVAIR HFA 115/21MCG INHALER INH SCH ×2 (06:53→20:00)
[2021-03-02] MEDS: DOCUSATE SODIUM 100MG CAPSULE PO SCH ×2 (08:10→20:21)
[2021-03-02] MEDS: PANTOPRAZOLE 40MG VIAL (C9113 PER 1) IV SCH (08:10)
[2021-03-02] MEDS: CETIRIZINE (ZyrTEC) 10 MG TAB PO SCH (08:10)
[2021-03-02] MEDS: ENOXAPARIN 40MG/0.4ML SYRINGE (J1650 PER 10MG) SC SCH (08:10)
[2021-03-02] MEDS: NICOTINE 21MG/24HR 1 EA TRANSDERMAL TD SCH (08:11)
[2021-03-02] MEDS ORDERED: predniSONE 20 MG TAB PO SCH ×2 (09:00)
[2021-03-02] MEDS ORDERED: AUGMENTIN 875 MG TAB PO SCH (09:00)
--- NOTE | 2021-03-02 09:26 | ECGEPIP ---
[facility] - ED Test Date: 2021-03-01 Pat Name: RADHA RIVERA Department: Room: - Gender: Female Top Former: ZIYAD : 1970 Requested By: ISAÍAS MAYO Order Number: [id number] Reading MD: Isaías Lara Measurements Intervals [place] Rate: 105 P: 64 ND: 120 QRS: 34 QRSD: 72 T: 55 QT: 334 QTc: 441 Interpretive Statements Sinus tachycardia rate slightly increased from tracing done 07-24-17 Electronically Signed on 03-02-2021 9:26:09 EDT by Isaías Lara
[2021-03-02 09:42] LABS: BASO % 0.1 % (0.0-1.0); HEMOGLOBIN 15.1 g/dl (12.0-15.5); LYMPH % 6.3 % (24.0-44.0); MEAN CORPUSCULAR HEMOGLOBIN 26.8 pg (27.0-33.0); MEAN CORPUSCULAR HGB CONC 31.5 g/dl (32.0-36.5); MEAN CORPUSCULAR VOLUME 85.3 fl (80.0-96.0); MONO # 0.7 10^3/uL (0.0-0.8); MONO % 4.6 % (2.0-8.0); NEUTROPHILS # 13.4 10^3/uL (1.5-8.5); NEUTROPHILS % 88.6 % (36.0-66.0); PLATELET COUNT, AUTOMATED 343 10^3/uL (150-450); RED BLOOD COUNT 5.63 10^6/uL (4.00-5.40); WHITE BLOOD COUNT 15.2 10^3/uL (4.0-10.0)
[2021-03-02] MEDS: ALBUTEROL SULFATE 2.5 MG/0.5 ML INH NEB SOLN NEB SCH ×4 (09:45→20:07)
[2021-03-02] MEDS: methylPREDNISolone 125MG 2ML VIAL IV SCH ×2 (09:58→16:05)
[2021-03-02 10:30] LABS: CALCIUM LEVEL 9.6 MG/DL (8.5-10.1); CREATININE FOR GFR 1.12 MG/DL (0.55-1.30); GLOMERULAR FILTRATION RATE 54.4 (>51); POTASSIUM SERUM 4.1 MEQ/L (3.5-5.1)
--- NOTE | 2021-03-02 11:14 | IPNPDOC ---
Text Note Date of Service The patient was seen on 03/02/21. NOTE SUBJECTIVE: -Very tight, on NRB, tachycardic likely from q1H albuterol nebs VITAL SIGNS: Please see below GENERAL APPEARANCE: Obese, seated on the side of the bed, some mild respiratory distress, on NRB HEENT: NCAT, EOMI, PERRLA, dry MM CARDIOVASCULAR: Regular rhythm, tachycardic, no m/r/g LUNGS: very tight, poor air movement with expiratory wheezing present, no crackles ABDOMEN: Normoactive bowel sounds, obese, soft, NTND EXTREMITIES: Has some mon-pitting edema to b/l lower extremities, otherwise WWP NEUROLOGICAL: AOx3, CN2-12 intact, moving all extremities, nonfocal examination PSYCHIATRIC: AOx3, normal affect, anxious. LABORATORY DATA: WBC 15.2 Hgb 15.1 platelets 343 na 137 K 4.1 Cr 1.12 IMAGING: Chest x-ray: Lungs: Unremarkable. No consolidation. Pleural spaces: Unremarkable. No pleural effusion. No pneumothorax. Heart/Mediastinum: Unremarkable. No cardiomegaly. Bones/joints: Unremarkable. IMPRESSION: No acute findings. CTA chest: FINDINGS: Pulmonary arteries: There are no pulmonary emboli. Aorta: There is no aortic dissection or aneurysm. Lungs: Bilateral ground-glass opacities predominantly peripheral in location. Findings suspect for multifocal pneumonitis. Pleural spaces: Unremarkable. No pneumothorax. No pleural effusion. Heart: Unremarkable. No cardiomegaly. No pericardial effusion. Lymph nodes: Unremarkable. No enlarged lymph nodes. Bones/joints: The spine demonstrates mild degenerative changes. Soft tissues: Unremarkable. IMPRESSION: 1. Bilateral ground-glass opacities predominantly peripheral in location. Findings suspect for multifocal pneumonitis. 2. There is no aortic dissection or aneurysm. 3. There are no pulmonary emboli. MICROBIOLOGY: Please see below. ASSESSMENT:50 year old female with a heavy smoking history and asthma and admitted for a severe asthma exacerbation in the setting of a non covid coronavirus 229E URI currently on NRB and requiring IV steroids. . PLAN: Acute Asthma exacerbation secondary to non-covid coronavirus PNA - Of note, may have underlying copd given her extensive smoking history - Tylenol PRN for fever - Supplemental O2 with goal o2 sat >89% - DC PO steroids and start 125mg solumedrol Q6H until exam and oxygenation improves with decreasing O2 requirements - Reduce albuterol nebs from Q1H to Q4H given ongoing tachycardia - Continue at home cetirizine - Incentive spirometry 2. HTN: normotensive - will monitor 3. Nicotine use - Nicoderm patch 4. Obesity - unfortunately complicates care, will require PCP follow up 5. DVT prophylaxis - Lovenox. VS,Fishbone, I+O VS, Fishbone, I+O Laboratory Tests 03/01/21 17:35 03/02/21 09:26 Vital Signs Date Time Temp Pulse Resp B/P (MAP) Pulse Ox O2 Delivery O2 Flow Rate FiO2 03/02/21 08:00 97.1 112 19 143/77 (99) 90 Non-Rebreather 03/02/21 06:53 15.0 100 I&O- Last 24 Hours up to 6 AM 03/02/21 06:00 Intake Total 200 ml Balance 200 ml BRE CUELLO MD Mar 02, 2021 11:14
[2021-03-03] VITALS (8 sets, daily range): BP systolic 118–141; BP diastolic 57–78; O2SAT 94
[2021-03-03] MEDS ORDERED: methylPREDNISolone 125MG 2ML VIAL IV SCH
[2021-03-03] MEDS: ALBUTEROL SULFATE 2.5 MG/0.5 ML INH NEB SOLN NEB SCH ×7 (04:18→23:36)
[2021-03-03 05:53] LABS: BASO % 0.1 % (0.0-1.0); HEMATOCRIT 45.1 % (36.0-47.0); LYMPH # 0.8 10^3/uL (1.5-5.0); MEAN CORPUSCULAR VOLUME 86.9 fl (80.0-96.0); MONO # 0.3 10^3/uL (0.0-0.8); MONO % 2.2 % (2.0-8.0); NEUTROPHILS # 12.4 10^3/uL (1.5-8.5); NEUTROPHILS % 91.3 % (36.0-66.0); PLATELET COUNT, AUTOMATED 342 10^3/uL (150-450); RED BLOOD COUNT 5.19 10^6/uL (4.00-5.40); WHITE BLOOD COUNT 13.6 10^3/uL (4.0-10.0)
[2021-03-03 06:22] LABS: BLOOD UREA NITROGEN 27 MG/DL (7-18); CALCIUM LEVEL 9.6 MG/DL (8.5-10.1); CARBON DIOXIDE LEVEL 26 MEQ/L (21-32); CHLORIDE LEVEL 103 MEQ/L (98-107); GLOMERULAR FILTRATION RATE > 60.0 (>51); GLUCOSE, FASTING 143 MG/DL (70-100); MAGNESIUM LEVEL 2.7 MG/DL (1.8-2.4); POTASSIUM SERUM 4.5 MEQ/L (3.5-5.1); SODIUM LEVEL 139 MEQ/L (136-145)
[2021-03-03] MEDS: ADVAIR HFA 115/21MCG INHALER INH SCH ×2 (08:00→21:01)
[2021-03-03] MEDS: DOCUSATE SODIUM 100MG CAPSULE PO SCH ×2 (08:55→21:00)
[2021-03-03] MEDS: ENOXAPARIN 40MG/0.4ML SYRINGE (J1650 PER 10MG) SC SCH (08:55)
[2021-03-03] MEDS: NICOTINE 21MG/24HR 1 EA TRANSDERMAL TD SCH (08:55)
[2021-03-03] MEDS: methylPREDNISolone 125MG 2ML VIAL IV SCH ×2 (08:56→16:24)
[2021-03-03] MEDS: PANTOPRAZOLE 40MG VIAL (C9113 PER 1) IV SCH (08:56)
[2021-03-03] MEDS: CETIRIZINE (ZyrTEC) 10 MG TAB PO SCH (08:56)
--- NOTE | 2021-03-03 18:11 | IPNPDOC ---
Text Note Date of Service The patient was seen on 03/03/21. NOTE S Patient reported significant improvement in SOB today. Her oxygen was titrated down from non-rebreather mask to venturi mask 50% FiO2 and subsequently 40% FiO2, her O2 saturation remained around 93%. She noted although she continues to experience SOB upon ambulation from bed to bathroom, she recovered faster (3-5 minutes) today. She denied fever, chills, CP, N/V/D and urinary symptoms. Patient reported abd pain described as muscle spasm upon coughing that has been managed with tylenol. However, she reported exacerbation of RUQ especially with cough. O VITAL SIGNS: See below GENERAL APPEARANCE: Revealed 50 y/o F sitting at bedside, alert & oriented x3, in mild distress. HEENT Exam: Normocephalic and atraumatic, PERRLA, conjunctiva & lids normal, EOMI, without sclera icteric, mucous membr. moist/pink, pharynx normal, nares patent. venturi mask noted with 40% FiO2 at 15L/min. NECK: Supple without lymphadenopathy, JVD, thyromegaly LUNGS: End inspiratory wheezes noted in upper lung field bilaterally, otherwise clear to auscultation without adventitious sounds. CARDIOVASCULAR: Regular rate and rhythm, normal S1 & S2 without gallops, murmurs, rubs ABDOMEN: Obese abdomen, soft, non-distended with normal bowel sounds. Mildly tender in RUQ. No masses or ecchymosis or hepatosplenomegaly. EXTREMITIES: 2+ pulses in all extremities. No clubbing, cyanosis, edema, tenderness SKIN: Normal turgor and temperature. No rash, lesion MUSCULOSKELETAL: Strength +5/5 in all extremities without tenderness. NEUROLOGICAL: Normal speech with intact sensation, cranial nerves III-XII normal. PSYCHIATRIC: Normal mood and affect ASSESSMENT: Patient is a 50 year old female with a heavy smoking history and asthma and admitted for a severe asthma exacerbation in the setting of a non covid coronavirus 229E URI. Patient responded well with 3x 125mg IV solumedrol and her steroid therapy now lowered to 60mg IV q8hour. Continuous oxygen titration lowered patient's O2 requirement from nonrebreather to 4L/min NC with saturation around 93%. Anticipating discharge tomorrow with steroid taper. PLAN: Acute hypoxic respiratory failure - likely 2/2 Acute Asthma exacerbation 2/2 non-covid coronavirus PNA, possibly component of COPD - Patient clinically improved today with lower O2 requirement - Of note, may have underlying copd given her extensive smoking history - Tylenol PRN for fever - Cont O2 titration with goal o2 sat >89% - Received 3 doses of 125 mg IV solumedrol since ED admission, lowered to 60mg IV q8hr - Cont albuterol q4hr - Continue home dose cetirizine - Incentive spirometry 2. HTN: normotensive - will monitor 3. Nicotine use - Nicoderm patch 4. Obesity - unfortunately complicates care, will require PCP follow up 5. RUQ tenderness - Patient reported exacerbation of RUQ pain upon coughing and feeling "something pushing out" that improves upon pushing back in. - Suspect to be hernia given hx of previous abdominal surgery, will need outpatient workup. - Cont tylenol for pain management 6. DVT prophylaxis - Lovenox. Disposition: Will continue to titrate oxygen and lower oxygen requirement, aiming to discharge tomorrow. VS,Fishbone, I+O VS, Fishbone, I+O Laboratory Tests 03/03/21 05:28 Vital Signs Date Time Temp Pulse Resp B/P (MAP) Pulse Ox O2 Delivery O2 Flow Rate FiO2 03/03/21 17:25 98.0 71 18 125/76 (92) 91 Nasal Cannula 4.0 03/03/21 08:06 40 I&O- Last 24 Hours up to 6 AM 03/03/21 06:00 Intake Total 1020 ml Balance 1020 ml GME ATTESTATION GME ATTESTATION My faculty preceptor for this patient encounter was physically present during the encounter and was fully available. All aspects of the patient interview, examination, medical decision making process, and medical care plan development were reviewed and approved by the faculty preceptor. The faculty preceptor is aware and concurs with the plan as stated in the body of this note and will attest to such by his/her cosignature. ATTENDING NOTE I, Adair Landeros, have independently examined this patient and performed my own physical exam, as well as reviewed the documentation and edited where necessary. I have discussed in detail with the resident / student the findings and plan of treatment as documented by the resident / student and edited their note. I agree with their findings and treatment plan and have edited their documentation. I will continue to follow the patient during this hospital stay. VAISHNAVI MYERS OMS-3 Mar 03, 2021 18:11 ADAIR LANDEROS MD Mar 03, 2021 18:16
[2021-03-04] MEDS: methylPREDNISolone 125MG 2ML VIAL IV SCH ×2 (00:07→08:43)
[2021-03-04] MEDS: ALBUTEROL SULFATE 2.5 MG/0.5 ML INH NEB SOLN NEB SCH ×6 (04:46→23:48)
[2021-03-04 06:00] VITALS: BP 115/63
[2021-03-04 06:53] LABS: BASO % 0.1 % (0.0-1.0); HEMATOCRIT 41.9 % (36.0-47.0); HEMOGLOBIN 13.1 g/dl (12.0-15.5); LYMPH # 1.1 10^3/uL (1.5-5.0); LYMPH % 9.3 % (24.0-44.0); MEAN CORPUSCULAR HGB CONC 31.3 g/dl (32.0-36.5); MEAN CORPUSCULAR VOLUME 86.4 fl (80.0-96.0); MONO # 0.4 10^3/uL (0.0-0.8); MONO % 3.8 % (2.0-8.0); NEUTROPHILS # 9.7 10^3/uL (1.5-8.5); NEUTROPHILS % 86.1 % (36.0-66.0); PLATELET COUNT, AUTOMATED 301 10^3/uL (150-450); RED BLOOD COUNT 4.85 10^6/uL (4.00-5.40); WHITE BLOOD COUNT 11.3 10^3/uL (4.0-10.0)
[2021-03-04 07:20] LABS: BLOOD UREA NITROGEN 28 MG/DL (7-18); CARBON DIOXIDE LEVEL 29 MEQ/L (21-32); CHLORIDE LEVEL 106 MEQ/L (98-107); CREATININE FOR GFR 0.81 MG/DL (0.55-1.30); GLOMERULAR FILTRATION RATE > 60.0 (>51); GLUCOSE, FASTING 156 MG/DL (70-100); POTASSIUM SERUM 4.7 MEQ/L (3.5-5.1); SODIUM LEVEL 139 MEQ/L (136-145)
[2021-03-04] MEDS: ADVAIR HFA 115/21MCG INHALER INH SCH ×2 (07:29→21:05)
[2021-03-04] MEDS: PANTOPRAZOLE 40MG VIAL (C9113 PER 1) IV SCH (08:43)
[2021-03-04] MEDS: DOCUSATE SODIUM 100MG CAPSULE PO SCH ×2 (08:44→20:46)
[2021-03-04] MEDS: CETIRIZINE (ZyrTEC) 10 MG TAB PO SCH (08:44)
[2021-03-04] MEDS: ENOXAPARIN 40MG/0.4ML SYRINGE (J1650 PER 10MG) SC SCH (08:44)
[2021-03-04] MEDS: NICOTINE 21MG/24HR 1 EA TRANSDERMAL TD SCH (08:44)
[2021-03-04 14:00] VITALS: BP 137/84
--- NOTE | 2021-03-04 15:22 | IPNPDOC ---
Text Note Date of Service The patient was seen on 03/04/21. NOTE S Patient reported further improvement in her SOB today. She was able to shower and ambulate to bathroom without getting winded. Her oxygen was titrated down to 3L/min NC and her O2 saturation remained around 93%. She denied fever, chills, CP, N/V/D, abd pain and urinary symptoms. Her abd pain has also resolved. O VITAL SIGNS: See below GENERAL APPEARANCE: Revealed 50 y/o F sitting at bedside, alert & oriented x3, in no acute distress. HEENT Exam: Normocephalic and atraumatic, PERRLA, conjunctiva & lids normal, EOMI, without sclera icteric, mucous membr. moist/pink, pharynx normal, nares patent. NC noted at 3L/min. NECK: Supple without lymphadenopathy, JVD, thyromegaly LUNGS: Subtle end inspiratory and expiratory wheezes in upper lung field, otherwise clear to auscultation without adventitious sounds. - improvement relative to yesterday CARDIOVASCULAR: Regular rate and rhythm, normal S1 & S2 without gallops, murmurs, rubs ABDOMEN: Obese abdomen, soft, nontender, non-distended with normal bowel sounds. Healed RUQ and suprapubic surgical scar noted. No masses or ecchymosis or hepatosplenomegaly. EXTREMITIES: 2+ pulses in all extremities. No clubbing, cyanosis, edema, tenderness SKIN: Normal turgor and temperature. No rash, lesion MUSCULOSKELETAL: Strength +5/5 in all extremities without tenderness. NEUROLOGICAL: Normal speech with intact sensation, cranial nerves III-XII normal. No signs of gross focal neurological deficit. PSYCHIATRIC: Normal mood and affect ASSESSMENT: Patient is a 50 year old female with a heavy smoking history and asthma and admitted for a severe asthma exacerbation in the setting of a non covid coronavirus 229E URI on morning of 03/02/21. Patient responded well with 3x 125mg IV solumedrol on 03/02 and her steroid therapy was lowered to 60mg IV q8hour on 03/03. Her oxygen was titrated from Nonrebreather on admission to venturi mask on day 1 to 3L/min NC today with O2 saturation around 93%. Will further lower patient to 40mg IV q12hr today and transition to 40mg PO prednisone tomorrow, continue to wean off oxygen. Anticipate discharge tomorrow. PLAN: Acute hypoxic respiratory failure - likely 2/2 Acute Asthma exacerbation 2/2 non-covid coronavirus PNA, possibly component of COPD - Patient clinically improved today with lower O2 requirement (3L/min NC at 93% O2 sat) - Of note, may have underlying copd given her extensive smoking history - Tylenol PRN for fever - Cont O2 titration with goal o2 sat >89% - Received 3 doses of 125 mg IV solumedrol since ED admission, lowered to 60mg IV q8hr yesterday, will further lower patient to 40mg IV q12hr today and transition to 40mg PO prednisone tomorrow - Cont albuterol q4hr - Continue home dose cetirizine - Incentive spirometry 2. HTN: normotensive - will monitor 3. Nicotine use - Nicoderm patch 4. Obesity - unfortunately complicates care, will require PCP follow up 5. RUQ tenderness, resolved - Patient reported exacerbation of RUQ pain upon coughing and feeling "something pushing out" that improves upon pushing back in on 03/03. - Suspect to be hernia given hx of previous abdominal surgery, will need outpatient workup. - Cont tylenol for pain management 6. DVT prophylaxis - Lovenox. Disposition: Will further lower patient to 40mg IV q12hr today and transition to 40mg PO prednisone tomorrow, continue to wean off oxygen. Anticipate discharge tomorrow. VS,Fishbone, I+O VS, Fishbone, I+O Laboratory Tests 03/04/21 06:17 Vital Signs Date Time Temp Pulse Resp B/P (MAP) Pulse Ox O2 Delivery O2 Flow Rate FiO2 03/04/21 06:00 3.0 03/04/21 06:00 97.3 82 18 115/63 (80) 91 Nasal Cannula 03/03/21 08:06 40 I&O- Last 24 Hours up to 6 AM 03/04/21 05:59 Intake Total 900 ml Output Total 0 ml Balance 900 ml GME ATTESTATION GME ATTESTATION My faculty preceptor for this patient encounter was physically present during the encounter and was fully available. All aspects of the patient interview, examination, medical decision making process, and medical care plan development were reviewed and approved by the faculty preceptor. The faculty preceptor is aware and concurs with the plan as stated in the body of this note and will attest to such by his/her cosignature. ATTENDING NOTE I, Adair Landeros, have independently examined this patient and performed my own physical exam, as well as reviewed the documentation and edited where necessary. I have discussed in detail with the resident / student the findings and plan of treatment as documented by the resident / student and edited their note. I agree with their findings and treatment plan and have edited their documentation. I will continue to follow the patient during this hospital stay. VAISHNAVI MYERS OMS-3 Mar 04, 2021 09:30 ADAIR LANDEROS MD Mar 04, 2021 15:31
[2021-03-04] MEDS: methylPREDNISolone 40MG 1ML VIAL IV SCH (20:46)
[2021-03-04 22:00] VITALS: BP 126/61
[2021-03-05] MEDS: ALBUTEROL SULFATE 2.5 MG/0.5 ML INH NEB SOLN NEB SCH ×3 (03:10→11:12)
[2021-03-05 06:00] VITALS: BP 129/74
[2021-03-05 07:31] LABS: BASO % 0.1 % (0.0-1.0); HEMATOCRIT 39.6 % (36.0-47.0); HEMOGLOBIN 12.4 g/dl (12.0-15.5); LYMPH # 1.9 10^3/uL (1.5-5.0); LYMPH % 21.7 % (24.0-44.0); MEAN CORPUSCULAR HEMOGLOBIN 26.8 pg (27.0-33.0); MEAN CORPUSCULAR HGB CONC 31.3 g/dl (32.0-36.5); MEAN CORPUSCULAR VOLUME 85.5 fl (80.0-96.0); MONO # 0.4 10^3/uL (0.0-0.8); NEUTROPHILS # 6.4 10^3/uL (1.5-8.5); NEUTROPHILS % 72.9 % (36.0-66.0); PLATELET COUNT, AUTOMATED 274 10^3/uL (150-450); RED BLOOD COUNT 4.63 10^6/uL (4.00-5.40); WHITE BLOOD COUNT 8.8 10^3/uL (4.0-10.0)
[2021-03-05] MEDS: ADVAIR HFA 115/21MCG INHALER INH SCH (08:08)
[2021-03-05 08:21] LABS: BLOOD UREA NITROGEN 24 MG/DL (7-18); CALCIUM LEVEL 8.8 MG/DL (8.5-10.1); CARBON DIOXIDE LEVEL 29 MEQ/L (21-32); CHLORIDE LEVEL 108 MEQ/L (98-107); CREATININE FOR GFR 0.69 MG/DL (0.55-1.30); GLOMERULAR FILTRATION RATE > 60.0 (>51); GLUCOSE, FASTING 130 MG/DL (70-100); POTASSIUM SERUM 4.5 MEQ/L (3.5-5.1); SODIUM LEVEL 141 MEQ/L (136-145)
[2021-03-05] MEDS: DOCUSATE SODIUM 100MG CAPSULE PO SCH ×2 (09:00→09:45)
[2021-03-05] MEDS: ENOXAPARIN 40MG/0.4ML SYRINGE (J1650 PER 10MG) SC SCH (09:45)
[2021-03-05] MEDS: PANTOPRAZOLE 40MG VIAL (C9113 PER 1) IV SCH (09:45)
[2021-03-05] MEDS: CETIRIZINE (ZyrTEC) 10 MG TAB PO SCH (09:45)
[2021-03-05] MEDS: NICOTINE 21MG/24HR 1 EA TRANSDERMAL TD SCH (09:46)
[2021-03-05] MEDS: methylPREDNISolone 40MG 1ML VIAL IV SCH (09:46)
[2021-03-05] MEDS ORDERED: PRED10TA2 PO (10:57)
[2021-03-05] MEDS ORDERED: LEVA45AE INH (12:27)
--- NOTE | 2021-03-05 14:00 | DS.PDOC ---
Discharge Summary General Date of Admission Mar 02, 2021 at 06:02 Date of Discharge 03/05/2021 Primary Care Physician: ZOE LYN Attending Physician: ADAIR STROUD MD Discharge Summary PROCEDURES PERFORMED DURING STAY: [None]. ADMITTING DIAGNOSES: 1. Acute Asthma exacerbation secondary to viral pneumonia. 2. HTN 3. Nicotine use 4. Obesity DISCHARGE DIAGNOSES: 1. Acute hypoxic respiratory failure - likely 2/2 Acute Asthma exacerbation 2/2 non-covid coronavirus PNA, possibly component of COPD 2. Nicotine use 3. Obesity 4. RUQ tenderness, resolved 5. HTN, resolved COMPLICATIONS/CHIEF COMPLAINT: Asthma Exacerbation. HISTORY OF PRESENT ILLNESS: Patient is a 50 year old female with a heavy smoking history and asthma who presents to the ED on 03/01 with a chief complaint of sob that has begun worsening over the past few months but gotten acutely worse in the past 3-4 days. Patient states that her shortness of breath is worsened with exertion but she has also noticed it as rest. Patient has tried her at home inhalers to no help. Patient states she has also been experiencing some fevers, chills and nonproductive cough the past 3-4 days. Patient is current ppd smoker. Denies chest pain, dizziness, syncope, abd pain, n/v/d, back pain, dysuria. Of note, patient developed sore throat and was diagnosed with strep throat via telemedicine on 02/26. She was started on a 10 day course of augmentin (1st dose on 02/27). Upon review of previous records, it appears that patient has had previous outpatient visit with similar complaint of SOB. She presented to urgent care on 09/22/2020 and was found with O2 sat of 92%. She was given 5 days of prednisone and her SOB improved. She then followed up at outpatient clinic at [facility] on 09/30/2020 in which she was given the diagnosis of unspecified COPD with referral to pulmonology. However, patient reported that she did not follow through with her appointment with pulmonology. In the ED, patient's CXR was negative but CT angio showed B/L groundglass opacities predominantly peripheral in location suspicious for multifocal pneumonitis without evidence of PE. Her COVID, thyroid panel, trop and BNP were negative but she was found positive for coronavirus 229E. She was subsequently admitted for severe asthma exacerbation in the setting of non covid [place] virus 229E URI. HOSPITAL COURSE: Patient was started on 125mg IV solumedrol on 03/02 and gradually lowered to 40mg q12hr on 03/05/21. She was gradually weaned off from oxygen from Nonrebreather at 15L/min on admission and able to maintain saturation around 93%. Patient was found tachycardic and hypertensive on admission and it was attributed to multiple dose of albuterol that she received. Her tachycardia and hypertension gradually resolved as patient's respiratory status improved and albuterol requirement reduced. It was suspected her sore throat was likely 2/2 viral URI, her outpatient augmentin was subsequently discontinued and patient continued to be asymptomatic. During her hospital course, patient reported new onset of RUQ abd pain only upon coughing. Patient reported feeling "something popped out" during forceful cough, followed by sharp pain in RUQ, followed by resolution of pain upon "pushing it back in". Given patient's hx of cholecystectomy, her symptom was suspected to be 2/2 incisional hernia. Her abd pain was first controlled with tylenol but resolved during her hospital course as patient had less severe coughing, will likely require outpatient follow up with surgery. Patient was stable for discharge with tapering dose PO prednisone, Qvar, and follow up with PCP and pulmonology. Patient received nicotine patch through her hospital course and expressed interest in smoking cessation. She was advised to follow up with primary care for outpatient management. At the day of discharge, patient reported no SOB at rest. She was able to ambulate between bed and bathroom without getting short of breath. She denied fever, chills, CP, SOB, N/V/D, constipation and urinary symptoms. DISCHARGE MEDICATIONS: Please see below. ALLERGIES: Please see below. PHYSICAL EXAMINATION ON DISCHARGE: VITAL SIGNS: See below GENERAL APPEARANCE: Revealed 50 y/o F sitting at bedside, alert & oriented x3, in no acute distress. HEENT Exam: Normocephalic and atraumatic, PERRLA, conjunctiva & lids normal, EO SC, without sclera icteric, mucous membr. moist/pink, pharynx normal, nares patent. NC noted at 2L/min. NECK: Supple without lymphadenopathy, JVD, thyromegaly LUNGS: Subtle end inspiratory and expiratory wheezes in upper lung field, otherwise clear to auscultation without adventitious sounds. CARDIOVASCULAR: Regular rate and rhythm, normal S1 & S2 without gallops, murmurs, rubs ABDOMEN: Obese abdomen, soft, nontender, non-distended with normal bowel sounds. Healed RUQ and suprapubic surgical scar noted. No masses or ecchymosis or hepatosplenomegaly. EXTREMITIES: 2+ pulses in all extremities. No clubbing, cyanosis, edema, tenderness SKIN: Normal turgor and temperature. No rash, lesion MUSCULOSKELETAL: Strength +5/5 in all extremities without tenderness. NEUROLOGICAL: Normal speech with intact sensation, cranial nerves III-XII normal. No signs of gross focal neurological deficit. PSYCHIATRIC: Normal mood and affect LABORATORY DATA: Please see below. IMAGIN. Portable chest X ray on 03/01/2021 reported as: "No acute findings. " 2. CT angiography of chest on 03/01/2021 reported as: "1. Bilateral ground-glass opacities predominantly peripheral in location, findings suspect for multifocal pneumonitis. 2. There is no aortic dissection or aneurysm. 3. There are no pulmonary emboli." PROGNOSIS: Good ACTIVITY: As tolerated DIET: regular DISCHARGE PLAN: Home DISCHARGE INSTRUCTIONS: 1. Please start taking 10mg prednisone by mouth with the follow instruction upon discharge: i. Please take 4 tablets of 10mg prednisone (total of 40mg) by mouth daily for the next 3 days starting tomorrow (03/06,,) ii. Please then proceed to take 3 tablets of 10mg prednisone (total of 30mg) by mouth daily for another 3 days (03/09,,) iii. Please then proceed to take 2 tablets of 10mg prednisone (total of 20mg) by mouth daily for another 3 days (03/12,03/13, 03/14) iv. Please then proceed to take 1 tablets of 10mg prednisone (total of 10mg) by mouth daily for another 3 days (03/15,3,) and stop taking prednisone after 03/17. 2. Please start using Qvar inhaler, 2 puffs, twice daily. 3. Please stop taking your augmentin. 4. Please stop using your albuterol and start your levalbuterol 2 puffs, every 4 to 6 hours, as needed. 5. Please follow up with your primary care physician in 1 week 6. Please follow up with pulmonology in 1-2 weeks 7. Please return to the ED if your symptoms worsen or if you develop new symptoms. ITEMS TO FOLLOWUP ON ON OUTPATIENT: 1. None DISCHARGE CONDITION: Stable. Vital Signs/I&Os Vital Signs Date Time Temp Pulse Resp B/P (MAP) Pulse Ox O2 Delivery O2 Flow Rate FiO2 03/05/21 07:08 1.0 03/05/21 06:00 97.7 58 18 129/74 (92) 96 Nasal Cannula 03/03/21 08:06 40 I&O- Last 24 Hours up to 6 AM 03/05/21 06:00 Intake Total 1800 ml Output Total 0 ml Balance 1800 ml Laboratory Data Labs 24H Laboratory Tests 2 03/05/21 07:10: Anion Gap 4L, Glomerular Filtration Rate > 60.0, Calcium Level 8.8 03/05/21 07:11: Immature Granulocyte % (Auto) 0.3, Neutrophils (%) (Auto) 72.9H, Lymphocytes (%) (Auto) 21.7L, Monocytes (%) (Auto) 5.0, Eosinophils (%) (Auto) 0.0, Basophils (%) (Auto) 0.1, Neutrophils # (Auto) 6.4, Lymphocytes # (Auto) 1.9, Monocytes # (Auto) 0.4, Eosinophils # (Auto) 0.0, Basophils # (Auto) 0.0, Nucleated Red Blood Cells % (auto) 0.0 CBC/BMP Laboratory Tests 03/05/21 07:10 03/05/21 07:11 Microbiology Microbiology 03/02/21 Blood Culture - Preliminary, Resulted No Growth after 72 hours. All specime... 03/01/21 Respiratory Virus Panel (PCR) ([facility]) - Final, Complete Coronavirus 229E Discharge Medications Scheduled Beclomethasone Dipropionate (Qvar Redihaler) 40 Mcg/Act Hfa.aeroba, 2 PUFF INH BID Cetirizine HCl (Cetirizine HCl) 10 Mg Tab.chew, 10 MG PO DAILY, (Reported) Omeprazole (Omeprazole) 40 Mg Capsule.dr, 40 MG PO BID, (Reported) Prednisone (Prednisone) 10 Mg Tablet, 10 MG PO TAPER Take 4 tabs daily x 3 days, then 3 tabs daily x 3 days, then 2 tabs daily x 3 days, then 1 tab daily x 3 days and stop Scheduled PRN Acetaminophen (Acetaminophen) 500 Mg Tablet, 1,000 MG PO BID PRN for PAIN, (Reported) Albuterol Sulf (Albuterol Sulfate) 2.5 Mg/3 Ml Vial.neb, 2.5 MG NEB Q8H PRN for SHORTNESS OF BREATH, (Reported) Levalbuterol Tartrate (Levalbuterol Tartrate Hfa) 15 Gm Hfa.aer.ad, 2 PUFF INH Q4-6HP PRN for SHORTNESS OF BREATH Allergies Coded Allergies: TAPE (Verified Allergy, Mild, BLISTERS, PAPER TAPE OK, 04/26/11) erythromycin base (Verified Allergy, Unknown, 04/15/19) GME ATTESTATION GME ATTESTATION My faculty preceptor for this patient encounter was physically present during the encounter and was fully available. All aspects of the patient interview, examination, medical decision making process, and medical care plan development were reviewed and approved by the faculty preceptor. The faculty preceptor is aware and concurs with the plan as stated in the body of this note and will attest to such by his/her cosignature. ATTENDING NOTE I, Adair Stroud, have independently examined this patient and performed my own physical exam, as well as reviewed the documentation and edited where necessary. I have discussed in detail with the resident / student the findings and plan of treatment as documented by the resident / student and edited their note. I agree with their findings and treatment plan and have edited their documentation. I will continue to follow the patient during this hospital stay. Time spent on discharge 35 minutes VAISHNAVI MYERS OMS-3 Mar 05, 2021 11:10 ADAIR STROUD MD Mar 05, 2021 17:06
== END 2021-03-05 13:10 | disposition home or self-care (01) | DRG 139 ==
LOC: M ED 16:08 → M ED INP 16:09 → ENRESERV 03-02 01:28 → M PCU 03-02 01:59 → OBSVTOIN 03-02 06:02 → M MS5PR 03-03 17:02
PROVIDERS: ADMIT Internal Medicine; ATTEND Internal Medicine
DX: J12.89 Other viral pneumonia (principal); J96.01 Acute respiratory failure with hypoxia; J44.0 Chronic obstructive pulmonary disease with (acute) lower respiratory infection; Z68.43 Body mass index [BMI] 50.0-59.9, adult; J45.901 Unspecified asthma with (acute) exacerbation; J44.9 Chronic obstructive pulmonary disease, unspecified; E66.9 Obesity, unspecified; I10 Essential (primary) hypertension; F17.200 Nicotine dependence, unspecified, uncomplicated; Z79.899 Other long term (current) drug therapy; Z88.8 Allergy status to other drugs, medicaments and biological substances

== ENCOUNTER 2021-06-05 06:14 | Inpatient (IN) | payer BC ==
[~2021-06-05] VITALS: Ht 162.6 cm; Wt 140.9 kg
[~2021-06-05 06:14] MED LIST changes: +ACET-683 PO; +ALBU8.5H INH; +ALBU83IN NEB; +AMOX875T2 PO; +CETI10CH PO; +GABA-283 PO; -GABA-845 PO; +LEVA45AE INH; +OMEP-221 PO; +OMEP40CA4 PO; -OMEP40CA97 PO; +PRED10TA2 PO; +QVAR40AE12 INH
[2021-06-05] MEDS ORDERED: FLUTISP NARES (06:38)
[2021-06-05] MEDS ORDERED: PRED50TA PO (06:38)
[2021-06-05] MEDS ORDERED: IPRATROPIUM 0.5MG/ALBUTEROL 2.5MG INH SOL UD 3ML (DUONEB) As Ordered ONE (06:45)
[2021-06-05 06:55] LABS: BASO % 0.3 % (0.0-1.0); EOS % 0.3 % (0.0-3.0); HEMATOCRIT 39.2 % (36.0-47.0); HEMOGLOBIN 12.8 g/dl (12.0-15.5); LYMPH # 1.9 10^3/uL (1.5-5.0); LYMPH % 18.9 % (24.0-44.0); MEAN CORPUSCULAR HGB CONC 32.7 g/dl (32.0-36.5); MEAN CORPUSCULAR VOLUME 85.8 fl (80.0-96.0); MONO # 0.6 10^3/uL (0.0-0.8); MONO % 5.7 % (2.0-8.0); NEUTROPHILS # 7.6 10^3/uL (1.5-8.5); NEUTROPHILS % 74.4 % (36.0-66.0); PLATELET COUNT, AUTOMATED 299 10^3/uL (150-450); RED BLOOD COUNT 4.57 10^6/uL (4.00-5.40); WHITE BLOOD COUNT 10.2 10^3/uL (4.0-10.0)
[2021-06-05] MEDS ORDERED: IPRATROPIUM 0.5MG/ALBUTEROL 2.5MG INH SOL UD 3ML (DUONEB) NEB ONE (07:00)
[2021-06-05] MEDS ORDERED: methylPREDNISolone 125MG 2ML VIAL IV ONE (07:10)
[2021-06-05 07:25] LABS: ALBUMIN 3.3 GM/DL (3.2-5.2); ALT/SGPT 31 U/L (12-78); BILIRUBIN,DIRECT < 0.1 MG/DL (0.0-0.2); BILIRUBIN,TOTAL 0.3 MG/DL (0.2-1.0); BLOOD UREA NITROGEN 8 MG/DL (7-18); CALCIUM LEVEL 8.7 MG/DL (8.5-10.1); CARBON DIOXIDE LEVEL 27 MEQ/L (21-32); CHLORIDE LEVEL 109 MEQ/L (98-107); CK-MB VALUE MASS 1.6 NG/ML (<3.6); CPK CREATINE PHOSPHOKINASE 117 U/L (26-192); CREATININE FOR GFR 0.68 MG/DL (0.55-1.30); GLOMERULAR FILTRATION RATE > 60.0 (>51); GLUCOSE, FASTING 96 MG/DL (70-100); MB/CK RELATIVE INDEX 1.37 (< OR =4); POTASSIUM SERUM 3.9 MEQ/L (3.5-5.1); SODIUM LEVEL 142 MEQ/L (136-145); TOTAL PROTEIN 6.8 GM/DL (6.4-8.2); TROPONIN I < 0.02 NG/ML (< 0.10)
[2021-06-05] MEDS: IPRATROPIUM 0.5MG/ALBUTEROL 2.5MG INH SOL UD 3ML (DUONEB) NEB SCH ×5 (07:29→11:09)
[2021-06-05 07:40] LABS: RSV AMPLIFICATION NEGATIVE (NEGATIVE)
--- NOTE | 2021-06-05 08:58 | REPVR ---
PROCEDURE INFORMATION: Exam: XR Chest Exam date and time: 06/05/2021 6:45 AM Age: 50 years old Clinical indication: Cough; Additional info: Dyspnea/cough TECHNIQUE: Imaging protocol: XR of the chest. Views: 1 view. COMPARISON: [place] PORTABLE CHEST X-RAY 03/01/2021 5:45 PM FINDINGS: Lungs: Unremarkable. No consolidation. Pleural spaces: Unremarkable. No pleural effusion. No pneumothorax. Heart/Mediastinum: The cardiomediastinal silhouette is fairly stable in appearance. Bones/joints: Degenerative changes again involve the spine. IMPRESSION: No evidence for acute pulmonary disease. Electronically signed by: Luis Palomino On 06/05/2021 08:57:50 AM
[2021-06-05] MEDS ORDERED: LEVAINH INH (10:01)
[2021-06-05] MEDS ORDERED: QVAR40AE12 INH (10:01)
[2021-06-05] MEDS ORDERED: CETI-24 PO (10:01)
[2021-06-05 10:03] LABS: ABG BASE EXCESS -0.4 (-2.0-2.0); ABG HCO3 23.5 MEQ/L (22.0-26.0); ABG O2 SATURATION 90.9 % (95.0-99.0); ABG PARTIAL PRESSURE CO2 35.9 mmHg (35.0-45.0); ABG PARTIAL PRESSURE O2 58.4 mmHg (75.0-100.0); ABG TOTAL CO2 24.6 MEQ/L (22.0-29.0); ABG pH (ARTERIAL) 7.433 UNITS (7.350-7.450)
[2021-06-05] MEDS ORDERED: IPRATROPIUM 0.5MG/ALBUTEROL 2.5MG INH SOL UD 3ML (DUONEB) NEB PRN (11:10)
[2021-06-05] MEDS ORDERED: MOM 30ML SUSPENSION UDC PO PRN (11:10)
[2021-06-05] MEDS ORDERED: MAALOX 30 ML SUSP *UDC PO PRN (11:10)
[2021-06-05] MEDS ORDERED: FLUTICASONE PROP 0.05% NASAL SPRAY 16 GM (FLONASE) NARES PRN (11:15)
[2021-06-05] MEDS ORDERED: LEVALBUTEROL HFA 45MCG/ACT 15 GM INHALER INH PRN (12:55)
[2021-06-05] MEDS ORDERED: IPRATROPIUM HFA INHALER 12.9 GRAMS (ATROVENT HFA) INH PRN (12:55)
--- NOTE | 2021-06-05 13:34 | HPEPDOC ---
General Date of Admission Jun 05, 2021 at 10:28 Date of Service: Jun 05, 2021 Attending Physician: EDDY MARQUEZ MD Chief Complaint The patient is a 50-year-old female admitted with a reason for visit of Asthma Exacerbation. History of Present Illness HPI Pt is a 50yo F who presents with Hx of SOB that began 6 days ago. One day after symptom onset she started 2 day course of oral prednisone which she got from her [facility] medicine provider. This led to symptom improvement through Tuesday, with exacerbation returning Tuesday and progressively worsening up to arrival in ED. Throughout the week her at home inhalers did not relieve symptoms, and her SOB became constant. Last night she awoke from sleep and had difficulty breathing with assoc tightness in her chest, and was transported by ambulance around 5:30am. Pt admits that she has used a nebulizer every night for approx 4 yrs with mild relief of SOB, but does not use O2 at home. She was diagnosed with asthma 4 years ago, but has yet to see a school bus driver/mechanic, though she has an appointment next month. Pt admits to chronic SOB on prolonged exertion. Pt is fully vaccinated for Covid-19, but did not receive pneumococcal or influenza vaccine with the last year. Pt has multiple cats and dogs at home, no change recently. For many years she has had incidents of waking from sleep "gasping for air" with a sensation that she stopped breathing momentarily, along with chest tightness. Family members have noticed this to be true, and she frequently snores. Pt states she sleeps inclined with pillows, b/c laying flat causes SOB. Also, 3 months ago she was seen here for similar complaints. PMHx: Asthma GERD SxHx 2 C-sections Cholecystectomy FHx Mother- 72 w HTN and diabetes Father- at 75 fr Lung Ca, Hx HTN 5 siblings- no pertinent Hx, all in good health 2 children- no pertinent Hx, all in good health SHx Pt smokes 1pk/day for 25 yrs. She stopped for 2 months w patch use and occasional vaping (has stopped), but resumed 3 weeks ago to prior amount. Pt frequently drinks coffee. Occasional alcohol use. No illicit drug Hx. 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 No regular exercise. ROS Gen: Denies fever, chills, N/V, lightheadedness. HEENT: Denies MORENO. Admits to sinus congestion, and mild sore throat. Pt c/o infrequent double vision assoc w glasses use. RESP: Admits to chest congestion, SOB, and tightness in the chest when breathing. CVS: Denies palpitations. ABD: Admits to abnormal "clicking" sensation in RUQ that has persisted for years. Denies other abdominal pain, constipation, diarrhea, or blood in stool. : Denies hematuria or dysuria. LDNMP 3 weeks ago, denies abnormal vaginal bleeding or pain w menstruation. MSK: Denies neck or back pain. EXT: Admits to 2 month Hx swelling in her wrists and lower legs and ankles. Skin: Denies rash. Objective Gen: Pt had difficulty speaking short sentences, and is on oxygen. Pleasant, but in mild discomfort. Psych: A+Ox3. HEENT: PERRLA, EOMI, posterior pharynx normal w no exudate or erythema. No cervical lymphadenopathy, bruits, or JVD. RESP: Inspiratory and expiratory (more expiratory) wheezes noted b/l in upper lung soriano. No rhonchi or crackles. CVS: RRR, no murmur. ABD: soft, ND, normoactive bowel sounds. Patient tender to deep palpation in medial RUQ [status post cholecystectomy]. EXT: non-pitting edema in b/l forearms and b/l lower legs starting below knee. Skin: No rash. Imaging Chest X-Ray (06/05) Reported as- No evidence for acute pulmonary disease. Assessment Pt is a 50yo F w PMHx of GERD and 4 year Hx asthma/SOB on exertion who presented to ED this morning w 6 day Hx difficulty breathing w associated chest tightness. On evaluation in the ED, she was sating 88% on 4L O2 nasal cannula. She is being admitted to the hospital for evaluation of her SOB, respiratory therapy, and medical management of her sx. Plan 1. Shortness of Breath- Asthma vs. COPD [undiagnosed] Pt is on 4L O2 by nasal cannula. CXR showed no acute pulmonary pathology-we are considering an exacerbation of a chronic lung condition. We have started respiratory therapy. We are giving levalbuterol and ipratropium Q6H AMPARO Q4P PRN. We will start Methylprednisolone 40mg Q12H IV. Pt will be counselled on smoking cessation, and nicotine patch has been ordered. 2. GERD We will continue her home dose Omeprazole 40mg PO daily. 3. Sinus Congestion We are giving Fluticasone 2 sprays daily PRN. 4. Seasonal Allergies We will continue her home dose Cetirizine 10mg PO daily. 5. DVT Prophylaxis We are giving Heparin Q12H SC. Pt is Full Code Disposition: Pt has a scheduled appointment with pulmonology on 06/22. Upon discharge, consider starting patient on Spiriva, Albuterol, and short course of steroids for at home sx control. Home Medications Scheduled Beclomethasone Dipropionate (Qvar Redihaler) 40 Mcg/Act Hfa.aeroba, 2 PUFF INH BID, (Reported) Cetirizine HCl (Cetirizine HCl) 10 Mg Tablet, 10 MG PO DAILY, (Reported) Omeprazole (Omeprazole) 40 Mg Capsule.dr, 40 MG PO BID, (Reported) Prednisone (Prednisone) 50 Mg Tablet, 50 MG PO DAILY, (Reported) STARTED 05/31/21 FOR 7 DAYS Scheduled PRN Acetaminophen (Acetaminophen) 500 Mg Tablet, 1,000 MG PO BID PRN for PAIN, (Reported) Albuterol Sulf (Albuterol Sulfate) 2.5 Mg/3 Ml Vial.neb, 2.5 MG NEB Q4H PRN for SHORTNESS OF BREATH, (Reported) Fluticasone Propionate (Fluticasone Propionate) 16 Gm [place].susp, 2 SPRAYS NARES DAILY PRN for NASAL CONGESTION, (Reported) Levalbuterol Hydrochloride (Xopenex Hfa) 15 Gm Hfa.aer.ad, 2 PUFF INH Q4-6HP PRN for SOB/WHEEZING, (Reported) Allergies Coded Allergies: TAPE (Verified Allergy, Mild, BLISTERS, PAPER TAPE OK, 04/26/11) erythromycin base (Verified Allergy, Unknown, 04/15/19) A-FIB/CHADSVASC A-FIB History Current/History of A-Fib/PAF?: No Current PO Anticoag Therapy: No Vital Signs Vital Signs Date Time Temp Pulse Resp B/P (MAP) Pulse Ox O2 Delivery O2 Flow Rate FiO2 06/05/21 07:38 20 06/05/21 06:51 105 06/05/21 06:34 Nasal Cannula 2.0 06/05/21 06:27 132/61 86 Laboratory Data Labs 24H Laboratory Tests 2 06/05/21 06:41: Immature Granulocyte % (Auto) 0.4, Neutrophils (%) (Auto) 74.4H, Lymphocytes (%) (Auto) 18.9L, Monocytes (%) (Auto) 5.7, Eosinophils (%) (Auto) 0.3, Basophils (%) (Auto) 0.3, Neutrophils # (Auto) 7.6, Lymphocytes # (Auto) 1.9, Monocytes # (Auto) 0.6, Eosinophils # (Auto) 0.0, Basophils # (Auto) 0.0, Nucleated Red Blood Cells % (auto) 0.0, Anion Gap 6L, Glomerular Filtration Rate > 60.0, Calcium Level 8.7, Total Bilirubin 0.3, Direct Bilirubin < 0.1, Aspartate Amino Transf (AST/SGOT) 14, Alanine Aminotransferase (ALT/SGPT) 31, Alkaline Phosphatase 74, Total Creatine Kinase 117, Creatine Kinase MB 1.6, Creatine Kinase MB Relative Index 1.37, Troponin I < 0.02, Total Protein 6.8, Albumin 3.3, Albumin/Globulin Ratio 0.9L, Coronavirus (COVID-19)(PCR) NEGATIVE, Inf luenza Type A (RT-PCR) NEGATIVE, Influenza Type B (RT-PCR) NEGATIVE, Respiratory Syncytial Virus (PCR) NEGATIVE 06/05/21 09:56: Blood Gas Bicarbonate Standard 24.0, Arterial Blood pH 7.433, Arterial Blood Partial Pressure CO2 35.9, Arterial Blood Partial Pressure O2 58.4L, Arterial Blood Total CO2 24.6, Arterial Blood HCO3 23.5, Arterial Blood Base Excess -0.4, Arterial Blood Oxygen Saturation 90.9L CBC/BMP Laboratory Tests 06/05/21 06:41 Plan / VTE VTE Prophylaxis Ordered?: Yes KEVIN HAMM [facility] [place]-3 Jun 05, 2021 13:34
[2021-06-05] MEDS ORDERED: IPRATROPIUM 0.5MG/ALBUTEROL 2.5MG INH SOL UD 3ML (DUONEB) NEB SCH (14:00)
[2021-06-05] MEDS ORDERED: LEVALBUTEROL HFA 45MCG/ACT 15 GM INHALER INH SCH (14:00)
[2021-06-05] MEDS ORDERED: IPRATROPIUM HFA INHALER 12.9 GRAMS (ATROVENT HFA) INH SCH (14:00)
[2021-06-05 16:05] VITALS: BP 149/60
[2021-06-05] MEDS: CETIRIZINE (ZyrTEC) 10 MG TAB PO SCH (16:58)
[2021-06-05] MEDS: OMEPRAZOLE 20 MG CAP PO SCH (16:58)
[2021-06-05] MEDS: methylPREDNISolone 125MG 2ML VIAL IV SCH (18:52)
[2021-06-05] MEDS: IPRATROPIUM 0.02% SOLN 0.5MG 2.5ML NEB INH SCH (20:04)
[2021-06-05] MEDS: LEVALBUTEROL 1.25 MG/0.5 ML CONCENTRATE NEB INH SCH (20:05)
[2021-06-05] MEDS: DOCUSATE SODIUM 100MG CAPSULE PO SCH (20:20)
[2021-06-05] MEDS: HEPARIN SOD (PORCINE) 5000UNITS/ML 1ML VIAL/SYRINGE SC SCH (20:20)
[2021-06-05 21:00] VITALS: O2SAT 92
[2021-06-05 22:00] VITALS: BP 150/79
[2021-06-06] VITALS (11 sets, daily range): BP systolic 109–146; BP diastolic 59–85; O2SAT 92–97
[2021-06-06] MEDS: LEVALBUTEROL 1.25 MG/0.5 ML CONCENTRATE NEB INH PRN ×3 (00:01→11:15)
[2021-06-06] MEDS: ACETAMINOPHEN TAB 650MG DOSE (2X325MG) PO PRN ×2 (02:58→20:20)
[2021-06-06] MEDS: IPRATROPIUM 0.02% SOLN 0.5MG 2.5ML NEB INH SCH ×4 (02:59→20:00)
[2021-06-06] MEDS: LEVALBUTEROL 1.25 MG/0.5 ML CONCENTRATE NEB INH SCH ×4 (02:59→20:29)
[2021-06-06] MEDS: methylPREDNISolone 125MG 2ML VIAL IV SCH ×3 (06:37→22:06)
[2021-06-06 06:49] LABS: BASO % 0.1 % (0.0-1.0); HEMATOCRIT 40.7 % (36.0-47.0); HEMOGLOBIN 13.1 g/dl (12.0-15.5); LYMPH # 1.7 10^3/uL (1.5-5.0); LYMPH % 9.7 % (24.0-44.0); MEAN CORPUSCULAR HEMOGLOBIN 27.9 pg (27.0-33.0); MEAN CORPUSCULAR HGB CONC 32.2 g/dl (32.0-36.5); MEAN CORPUSCULAR VOLUME 86.6 fl (80.0-96.0); MONO # 0.9 10^3/uL (0.0-0.8); MONO % 5.2 % (2.0-8.0); NEUTROPHILS # 14.9 10^3/uL (1.5-8.5); NEUTROPHILS % 84.3 % (36.0-66.0); PLATELET COUNT, AUTOMATED 312 10^3/uL (150-450); WHITE BLOOD COUNT 17.6 10^3/uL (4.0-10.0)
[2021-06-06 07:16] LABS: BLOOD UREA NITROGEN 11 MG/DL (7-18); CALCIUM LEVEL 9.1 MG/DL (8.5-10.1); CARBON DIOXIDE LEVEL 31 MEQ/L (21-32); CHLORIDE LEVEL 104 MEQ/L (98-107); CREATININE FOR GFR 0.71 MG/DL (0.55-1.30); GLOMERULAR FILTRATION RATE > 60.0 (>51); GLUCOSE, FASTING 123 MG/DL (70-100); POTASSIUM SERUM 4.5 MEQ/L (3.5-5.1); SODIUM LEVEL 139 MEQ/L (136-145)
--- NOTE | 2021-06-06 08:39 | REP ---
INDICATION: shortness of breath. COMPARISON: Comparison chest x-ray June 05, 2021. TECHNIQUE: Two views.. FINDINGS: There is increased parenchymal density in the retrosternal clear space on the lateral film consistent with infiltrate. There is subtle increased density in the right perihilar region. Linear fibrosis is seen in the perihilar region on the frontal view superiorly. Platelike atelectasis is seen in the left base.. No acute bony abnormality. Pulmonary vasculature is not increased. Heart size is normal. IMPRESSION: Suspect right upper lobe infiltrate consistent with pneumonia. Left perihilar and left base platelike atelectasis.. <Electronically signed by Lorenzo Livingston > 06/06/21 [id number]
[2021-06-06] MEDS ORDERED: NICOTINE 21MG/24HR 1 EA TRANSDERMAL TD SCH (09:00)
[2021-06-06] MEDS: DOCUSATE SODIUM 100MG CAPSULE PO SCH ×2 (09:00→20:21)
[2021-06-06] MEDS: CETIRIZINE (ZyrTEC) 10 MG TAB PO SCH (09:06)
[2021-06-06] MEDS: HEPARIN SOD (PORCINE) 5000UNITS/ML 1ML VIAL/SYRINGE SC SCH ×2 (09:06→20:21)
[2021-06-06] MEDS: OMEPRAZOLE 20 MG CAP PO SCH (09:06)
--- NOTE | 2021-06-06 10:58 | IPNPDOC ---
Text Note Date of Service The patient was seen on 06/06/21. NOTE Subjective: -On 10L, still tachypneic, with a productive cough now -Asking for a nicotine patch Objective Vitals: see below Gen: NAD, has conversational dyspnea, coughing HEENT: PERRLA, EOMI, posterior pharynx normal w no exudate or erythema. No cervical lymphadenopathy. RESP: Diffuse expiratory wheezing in upper soriano R>L. No noted crackles. CVS: RRR, no murmur. ABD: Normoactive bowel sounds, soft, NTND EXT: non-pitting edema in bilateral LE edema Skin: No rash. Labs: Reviewed Imaging Chest X-Ray (06/05) Reported as- No evidence for acute pulmonary disease. 06/06 CXR: There is increased parenchymal density in the retrosternal clear space on the lateral film consistent with infiltrate. There is subtle increased density in the right perihilar region. Linear fibrosis is seen in the perihilar region on the frontal view superiorly. Platelike atelectasis is seen in the left base.. No acute bony abnormality. Pulmonary vasculature is not increased. Heart size is normal. IMPRESSION: Suspect right upper lobe infiltrate consistent with pneumonia. Left perihilar and left base platelike atelectasis. 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 Plan Asthma exacerbation vs. likely also has undiagnosed COPD exacerbation i/s/o of potential bacterial PNA -Increase steroids from 40mg solumedrol BID to 60mg TID given increase O2 requ irements now on 10L -CXR now showing retrosternal infiltrate c/f PNA, will begin empiric levaquin -levalbuterol and ipratropium Q6H AMPARO Q4P PRN. -counselled on smoking cessation -21 mg nicotine patch has been ordered -Incentive spirometer -mucinex Suspected CAP: -will start levaquin PO 750mg QD -SCx -urine strep and legionella -procalcitonin GERD -Omeprazole 40mg PO daily. Seasonal Allergies -Cetirizine 10mg PO daily. 5. DVT Prophylaxis -Heparin Q12H SC. Pt is Full Code VS,Fishbone, I+O VS, Krisbone, I+O Laboratory Tests 06/06/21 06:26 Vital Signs Date Time Temp Pulse Resp B/P (MAP) Pulse Ox O2 Delivery O2 Flow Rate FiO2 06/06/21 02:00 97.9 92 20 109/59 (76) 89 06/05/21 21:00 12.0 35 06/05/21 21:00 Venturi Mask I&O- Last 24 Hours up to 6 AM 06/06/21 06:00 Intake Total 150 ml Output Total 200 ml Balance -50 ml BRE CUELLO MD Jun 06, 2021 10:10
[2021-06-06] MEDS: LevoFLOXacin 750 MG TABLET PO SCH (11:08)
[2021-06-06] MEDS: guaiFENesin ER 600 MG TAB PO SCH ×2 (11:08→20:20)
[2021-06-06] MEDS: IPRATROPIUM 0.02% SOLN 0.5MG 2.5ML NEB INH PRN (11:15)
--- NOTE | 2021-06-06 21:13 | ECGEPIP ---
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
--- NOTE | 2021-06-06 21:14 | ECGEPIP ---
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
[2021-06-07] MEDS: LEVALBUTEROL 1.25 MG/0.5 ML CONCENTRATE NEB INH SCH ×4 (01:15→19:26)
[2021-06-07 02:00] VITALS: BP 115/69
[2021-06-07] MEDS: IPRATROPIUM 0.02% SOLN 0.5MG 2.5ML NEB INH SCH ×4 (02:00→20:00)
[2021-06-07] MEDS: LevoFLOXacin 750 MG TABLET PO SCH (05:54)
[2021-06-07] MEDS: LEVALBUTEROL 1.25 MG/0.5 ML CONCENTRATE NEB INH PRN ×2 (05:54→11:15)
[2021-06-07 06:00] VITALS: BP 116/69
[2021-06-07] MEDS: methylPREDNISolone 125MG 2ML VIAL IV SCH ×3 (06:00→22:32)
[2021-06-07 06:40] LABS: BASO % 0.1 % (0.0-1.0); HEMATOCRIT 39.2 % (36.0-47.0); HEMOGLOBIN 12.3 g/dl (12.0-15.5); LYMPH # 1.5 10^3/uL (1.5-5.0); LYMPH % 11.7 % (24.0-44.0); MEAN CORPUSCULAR HEMOGLOBIN 27.3 pg (27.0-33.0); MEAN CORPUSCULAR HGB CONC 31.4 g/dl (32.0-36.5); MEAN CORPUSCULAR VOLUME 86.9 fl (80.0-96.0); MONO # 0.6 10^3/uL (0.0-0.8); MONO % 4.3 % (2.0-8.0); NEUTROPHILS # 10.6 10^3/uL (1.5-8.5); NEUTROPHILS % 83.3 % (36.0-66.0); PLATELET COUNT, AUTOMATED 301 10^3/uL (150-450); RED BLOOD COUNT 4.51 10^6/uL (4.00-5.40); WHITE BLOOD COUNT 12.7 10^3/uL (4.0-10.0)
[2021-06-07 07:04] LABS: BLOOD UREA NITROGEN 16 MG/DL (7-18); CALCIUM LEVEL 9.1 MG/DL (8.5-10.1); CARBON DIOXIDE LEVEL 29 MEQ/L (21-32); CHLORIDE LEVEL 105 MEQ/L (98-107); CREATININE FOR GFR 0.75 MG/DL (0.55-1.30); GLOMERULAR FILTRATION RATE > 60.0 (>51); GLUCOSE, FASTING 125 MG/DL (70-100); POTASSIUM SERUM 4.4 MEQ/L (3.5-5.1); SODIUM LEVEL 141 MEQ/L (136-145)
[2021-06-07 07:10] VITALS: O2SAT 97
[2021-06-07] MEDS: DOCUSATE SODIUM 100MG CAPSULE PO SCH ×2 (07:18→20:23)
[2021-06-07] MEDS: OMEPRAZOLE 20 MG CAP PO SCH (08:54)
[2021-06-07] MEDS: CETIRIZINE (ZyrTEC) 10 MG TAB PO SCH (08:54)
[2021-06-07] MEDS: HEPARIN SOD (PORCINE) 5000UNITS/ML 1ML VIAL/SYRINGE SC SCH ×2 (08:54→20:24)
[2021-06-07] MEDS: guaiFENesin ER 600 MG TAB PO SCH ×2 (08:54→20:23)
[2021-06-07 09:20] VITALS: O2SAT 90
[2021-06-07] MEDS: IPRATROPIUM 0.02% SOLN 0.5MG 2.5ML NEB INH PRN (11:15)
[2021-06-07 14:00] VITALS: BP 135/70
[2021-06-07] MEDS ORDERED: NICOTINE 21MG/24HR 1 EA TRANSDERMAL TD SCH (14:00)
--- NOTE | 2021-06-07 14:14 | IPNPDOC ---
Text Note Date of Service The patient was seen on 06/07/21. NOTE Subjective: -On 3L, much imoproved dyspnea -No acute complaints Objective Vitals: see below Gen: NAD, has conversational dyspnea still, cough improving, on 3L NC HEENT: PERRLA, EOMI, posterior pharynx normal w no exudate or erythema. No cervical lymphadenopathy. RESP: Scattered expiratory wheezing in upper soriano R>L. No noted crackles. CVS: RRR, no murmur. ABD: Normoactive bowel sounds, soft, NTND EXT: non-pitting edema in bilateral LE edema Skin: No rash. Labs: Reviewed WBCs 12.7 Micro: GPCs in pairs, chains and clusters. MRSA PCR pending Imaging Chest X-Ray (06/05) Reported as- No evidence for acute pulmonary disease. 06/06 CXR: There is increased parenchymal density in the retrosternal clear space on the lateral film consistent with infiltrate. There is subtle increased density in the right perihilar region. Linear fibrosis is seen in the perihilar region on the frontal view superiorly. Platelike atelectasis is seen in the left base.. No acute bony abnormality. Pulmonary vasculature is not increased. Heart size is normal. IMPRESSION: Suspect right upper lobe infiltrate consistent with pneumonia. Left perihilar and left base platelike atelectasis. 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 Plan Asthma exacerbation vs. likely also has undiagnosed COPD exacerbation i/s/o of potential bacterial PNA -Continue steroids at 60mg TID now on 3L -CXR showing retrosternal infiltrate c/f PNA, on empiric levaquin, WBC d owntrending, continue -levalbuterol and ipratropium Q6H AMPARO Q4P PRN. -counselled on smoking cessation -21 mg nicotine patch has been ordered -Incentive spirometer -mucinex BID Suspected CAP: -Continue empiric levaquin PO 750mg QD -f/u SCx, growing GPCs in pair, chains and clusters, pending speciation. Improving on levaquin, will hold off empiric MRSA coverage -urine strep and legionella -f/u procalcitonin GERD -Omeprazole 40mg PO daily. Seasonal Allergies -Cetirizine 10mg PO daily. 5. DVT Prophylaxis -Heparin Q12H SC. Pt is Full Code VS,Fishbone, I+O VS, Fishbone, I+O Laboratory Tests 06/07/21 06:26 Vital Signs Date Time Temp Pulse Resp B/P (MAP) Pulse Ox O2 Delivery O2 Flow Rate FiO2 06/07/21 07:10 97 Nasal Cannula 4.0 06/07/21 06:00 97.6 82 20 116/69 (85) 06/06/21 16:17 35 I&O- Last 24 Hours up to 6 AM 06/07/21 06:00 Intake Total 1100 ml Output Total 475 ml Balance 625 ml BRE CUELLO MD Jun 07, 2021 09:15
[2021-06-07] MEDS: ACETAMINOPHEN TAB 650MG DOSE (2X325MG) PO PRN (20:25)
[2021-06-07 22:00] VITALS: BP 120/66
[2021-06-08] MEDS: LEVALBUTEROL 1.25 MG/0.5 ML CONCENTRATE NEB INH SCH ×2 (01:27→07:09)
[2021-06-08] MEDS: IPRATROPIUM 0.02% SOLN 0.5MG 2.5ML NEB INH SCH ×2 (02:00→07:09)
[2021-06-08] MEDS: LevoFLOXacin 750 MG TABLET PO SCH (05:54)
[2021-06-08] MEDS: LEVALBUTEROL 1.25 MG/0.5 ML CONCENTRATE NEB INH PRN (05:54)
[2021-06-08 06:00] VITALS: BP 128/72
[2021-06-08] MEDS: methylPREDNISolone 125MG 2ML VIAL IV SCH (06:00)
[2021-06-08 06:12] LABS: BASO % 0.1 % (0.0-1.0); HEMATOCRIT 37.2 % (36.0-47.0); HEMOGLOBIN 11.7 g/dl (12.0-15.5); LYMPH # 1.3 10^3/uL (1.5-5.0); LYMPH % 11.3 % (24.0-44.0); MEAN CORPUSCULAR HEMOGLOBIN 27.3 pg (27.0-33.0); MEAN CORPUSCULAR HGB CONC 31.5 g/dl (32.0-36.5); MEAN CORPUSCULAR VOLUME 86.9 fl (80.0-96.0); MONO # 0.5 10^3/uL (0.0-0.8); MONO % 4.3 % (2.0-8.0); NEUTROPHILS # 9.6 10^3/uL (1.5-8.5); NEUTROPHILS % 83.7 % (36.0-66.0); PLATELET COUNT, AUTOMATED 284 10^3/uL (150-450); RED BLOOD COUNT 4.28 10^6/uL (4.00-5.40); WHITE BLOOD COUNT 11.5 10^3/uL (4.0-10.0)
[2021-06-08 06:31] LABS: BLOOD UREA NITROGEN 20 MG/DL (7-18); CALCIUM LEVEL 8.5 MG/DL (8.5-10.1); CARBON DIOXIDE LEVEL 27 MEQ/L (21-32); CHLORIDE LEVEL 107 MEQ/L (98-107); CREATININE FOR GFR 0.73 MG/DL (0.55-1.30); GLOMERULAR FILTRATION RATE > 60.0 (>51); GLUCOSE, FASTING 147 MG/DL (70-100); POTASSIUM SERUM 4.4 MEQ/L (3.5-5.1); SODIUM LEVEL 141 MEQ/L (136-145)
[2021-06-08] MEDS: OMEPRAZOLE 20 MG CAP PO SCH (08:36)
[2021-06-08] MEDS: DOCUSATE SODIUM 100MG CAPSULE PO SCH (08:36)
[2021-06-08] MEDS: CETIRIZINE (ZyrTEC) 10 MG TAB PO SCH (08:36)
[2021-06-08] MEDS: HEPARIN SOD (PORCINE) 5000UNITS/ML 1ML VIAL/SYRINGE SC SCH (08:36)
[2021-06-08] MEDS: guaiFENesin ER 600 MG TAB PO SCH (08:36)
[2021-06-08] MEDS ORDERED: LEVO750T13 PO (09:27)
[2021-06-08] MEDS ORDERED: COMBAER6 INH (09:27)
[2021-06-08] MEDS ORDERED: MUCI600T31 PO (09:27)
[2021-06-08] MEDS ORDERED: NICO21PAT TD (09:27)
[2021-06-08] MEDS ORDERED: PRED10TA2 PO (09:27)
--- NOTE | 2021-06-08 09:51 | DS.PDOC ---
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 HISTORY OF PRESENT ILLNESS: 50yo W who presented with SOB that began 6 days prior. One day after symptom onset she started a 2 day course of oral prednisone which she got from her [facility] medicine provider. This led to symptom improvement through Tuesday, with exacerbation returning Tuesday and progressively worsening up to arrival in ED. Throughout the week her at home inhalers did not relieve symptoms, and her SOB became constant. She awoke from sleep and had difficulty breathing with assoc tightness in her chest, and was transported by ambulance at 5:30am. HOSPITAL COURSE: In the ED she was hypoxemic and wheezing with initial CXR that was unremarkable and was given solumedrol 125 IV and started on standing duonebs and PRN xopenex and admitted for asthma exacerbation. Her course was c/b worsening hypoxemia requiring up to 10L NC with a productive cough and repeat CXR showed a retrosternal opacicity c/f PNA and she was started on empiric levaquin, escalated steroids and mucinex with eventual improvement in her symptoms. I highly suspect that Ms. Miller also has COPD in addition to her asthma history given her 1ppd history for years and requirement of 21mg nicotine patch daily. I am now discharging her home with plan to complete a levaquin course de spite SCx having been negative with mixed amari on gramstain and will give her short steroid taper and combivent. I recommend PCP referral to pulmonology if exacerbations are frequent. DISCHARGE MEDICATIONS: Please see below. ALLERGIES: Please see below. PHYSICAL EXAMINATION ON DISCHARGE: VITAL SIGNS: Please see below. Gen: NAD, has conversational dyspnea still, cough improving, on 3L NC HEENT: PERRLA, EOMI, posterior pharynx normal w no exudate or erythema. No cervical lymphadenopathy. RESP: Rare expiratory wheezing in upper soriano R>L. No noted crackles. CVS: RRR, no murmur. ABD: Normoactive bowel sounds, soft, NTND EXT: non-pitting edema in bilateral LE edema Skin: No rash. LABORATORY DATA: Please see below. IMAGING: Chest X-Ray (06/05) Reported as- No evidence for acute pulmonary disease. 06/06 CXR: There is increased parenchymal density in the retrosternal clear space on the lateral film consistent with infiltrate. There is subtle increased density in the right perihilar region. Linear fibrosis is seen in the perihilar region on the frontal view superiorly. Platelike atelectasis is seen in the left base.. No acute bony abnormality. Pulmonary vasculature is not increased. Heart size is normal. IMPRESSION: Suspect right upper lobe infiltrate consistent with pneumonia. Left perihilar and left base platelike atelectasis. PROGNOSIS: good ACTIVITY: As tolerated DIET: Regular DISCHARGE PLAN: Home with levaquin for 5d, combivent and steroid taper. Counselled to consider quitting smoking. Prescribed nicotine patches. DISPOSITION: Home. DISCHARGE INSTRUCTIONS: Home with levaquin for 5d, combivent and steroid taper. Counselled to consider quitting smoking. Prescribed nicotine patches. ITEMS TO FOLLOWUP ON ON OUTPATIENT: CAP Asthma and highly likely COPD exacerbation resolution Smoking cessation counseling DISCHARGE CONDITION: Stable TIME SPENT ON DISCHARGE: 40 minutes. Vital Signs/I&Os Vital Signs Date Time Temp Pulse Resp B/P (MAP) Pulse Ox O2 Delivery O2 Flow Rate FiO2 06/08/21 08:40 93 Nasal Cannula 1.0 06/08/21 07:10 18 06/08/21 07:10 77 06/08/21 06:00 97.9 128/72 (90) 06/06/21 16:17 35 I&O- Last 24 Hours up to 6 AM 06/08/21 06:00 Intake Total 920 ml Output Total 800 ml Balance 120 ml Laboratory Data Labs 24H Laboratory Tests 2 06/07/21 10:18: Methicillin-Resist S.aureus DNA PCR NOT DETECTED 06/08/21 05:47: Immature Granulocyte % (Auto) 0.6, Neutrophils (%) (Auto) 83.7H, Lymphocytes (%) (Auto) 11.3L, Monocytes (%) (Auto) 4.3, Eosinophils (%) (Auto) 0.0, Basophils (%) (Auto) 0.1, Neutrophils # (Auto) 9.6H, Lymphocytes # (Auto) 1.3L, Monocytes # (Auto) 0.5, Eosinophils # (Auto) 0.0, Basophils # (Auto) 0.0, Nucleated Red Blood Cells % (auto) 0.0, Anion Gap 7L, Glomerular Filtration Rate > 60.0, Calcium Level 8.5 CBC/BMP Laboratory Tests 06/08/21 05:47 Microbiology Microbiology 06/06/21 Gram Stain - Final, Complete 06/06/21 Sputum Culture - Final, Complete Yeast Like Organism Discharge Medications Scheduled Beclomethasone Dipropionate (Qvar Redihaler) 40 Mcg/Act Hfa.aeroba, 2 PUFF INH BID, (Reported) Cetirizine HCl (Cetirizine HCl) 10 Mg Tablet, 10 MG PO DAILY, (Reported) Guaifenesin (Mucinex) 600 Mg Tab.er.12h, 600 MG PO BID Ipratropium/Albuterol Sulfate (Combivent Respimat 20-100 Mcg) 4 Gm Mist.inhal, 2 PUFF INH TID Levofloxacin (Levofloxacin) 750 Mg Tablet, 750 MG PO DAILY@0600 Nicotine (Nicotine Patch) 21 Mg Patch.td24, 1 PATCH TD DAILY@1400 Omeprazole (Omeprazole) 40 Mg Capsule.dr, 40 MG PO BID, (Reported) Prednisone (Prednisone) 10 Mg Tablet, 1 TAB PO ASDIRECTED 40mg BID for 2d, 40mg QD for 2d, 20mg QD for 2d, 10mg QD for 2d Scheduled PRN Acetaminophen (Acetaminophen) 500 Mg Tablet, 1,000 MG PO BID PRN for PAIN, (Reported) Albuterol Sulf (Albuterol Sulfate) 2.5 Mg/3 Ml Vial.neb, 2.5 MG NEB Q4H PRN for SHORTNESS OF BREATH, (Reported) Fluticasone Propionate (Fluticasone Propionate) 16 Gm [place].susp, 2 SPRAYS NARES DAILY PRN for NASAL CONGESTION, (Reported) Levalbuterol Hydrochloride (Xopenex Hfa) 15 Gm Hfa.aer.ad, 2 PUFF INH Q4-6HP PRN for SOB/WHEEZING, (Reported) Allergies Coded Allergies: TAPE (Verified Allergy, Mild, BLISTERS, PAPER TAPE OK, 04/26/11) erythromycin base (Verified Allergy, Unknown, 04/15/19) BRE CUELLO MD Jun 08, 2021 09:51
[2021-06-10 15:07] LABS: BODY FLUID CULTURE Not indicated. (.); LEGIONELLA ANTIGEN URINE Negative (Negative); ORGANISM ID Not indicated. (.); SPECIMEN SOURCE Urine (.); URINE STREP PNEUMONIAE ANTIGEN Negative (Negative)
== END 2021-06-08 11:41 | disposition home or self-care (01) | DRG 141 ==
LOC: M ED 06:14 → M ED INP 10:28 → ENRESERV 13:40 → M MSPAV 16:08
PROVIDERS: ADMIT Internal Medicine; ATTEND Internal Medicine
DX: J45.901 Unspecified asthma with (acute) exacerbation (principal); J44.1 Chronic obstructive pulmonary disease with (acute) exacerbation; F17.200 Nicotine dependence, unspecified, uncomplicated; Z79.899 Other long term (current) drug therapy; Z88.8 Allergy status to other drugs, medicaments and biological substances; K21.9 Gastro-esophageal reflux disease without esophagitis

== ENCOUNTER → 2021-07-21 | Outpatient (CLI) | payer BC ==
[~2021-07-21] MED LIST changes: +CETI-24 PO; +COMBAER6 INH; +FLUTISP NARES; +LEVAINH INH; +LEVO750T13 PO; +MUCI600T31 PO; +NICO21PAT TD; +PRED50TA PO
--- NOTE | 2021-07-21 10:03 | REP ---
INDICATION: ABN FINDING OF LUNG. COMPARISON: Comparison chest x-ray June 06, 2021. Comparison chest CT study March 01, 2021. TECHNIQUE: Helical scanning is acquired. 3 mm axial images are generated. Coronal and sagittal MPR and coronal MIP images are generated. FINDINGS: Preliminary digital global recruiter radiograph shows some linear density in the left perihilar region consistent with fibrosis or platelike atelectasis. There is no evidence of right upper lobe or other right lung infiltrate. Axial CT images confirm the presence of linear fibrosis and or atelectasis in the left upper lobe. This is more pronounced than on the March 01, [address] study. There is some linear platelike atelectasis in the left lower lobe as well on today's CT study. No paul infiltrate is appreciated. No pleural or pericardial effusion is seen. There is no evidence of hilar mass. There are scattered normal sized paratracheal lymph nodes which are unchanged from the CT study of the March 01, 2021. There are surgical clips in the gallbladder fossa post cholecystectomy. Small parapelvic renal cysts are noted on the left. Normal adrenal glands. No extra thoracic mass or adenopathy is seen. No bony destructive lesion. IMPRESSION: Discoid atelectasis and or fibrosis left upper lobe and left lower lobe somewhat more prominent than on the March 01, 2021 CT study. No infiltrate is seen. Stable normal-sized mediastinal lymph nodes. <Electronically signed by Lorenzo Livingston > 07/21/21 0922
== END ==
LOC: M RAD 09:13
PROVIDERS: ATTEND Nurse Practitioner Adult Health
DX: R91.8 Other nonspecific abnormal finding of lung field (principal)

== ENCOUNTER 2022-01-20 22:02 | Emergency (ER) | payer BC, OTHER ==
[~2022-01-20] VITALS: Ht 170.2 cm; Wt 120.0 kg
[~2022-01-20 22:02] MED LIST changes: -OMEP-221 PO; +OMEP40CA5 PO
[2022-01-20] MEDS ORDERED: IPRATROPIUM 0.5MG/ALBUTEROL 2.5MG INH SOL UD 3ML (DUONEB) NEB ONE (22:15)
[2022-01-20 22:41] LABS: BASO % 0.4 % (0.0-1.0); EOS # 0.1 10^3/uL (0.0-0.5); EOS % 0.9 % (0.0-3.0); HEMATOCRIT 39.7 % (36.0-47.0); HEMOGLOBIN 12.6 g/dl (12.0-15.5); LYMPH # 0.6 10^3/uL (1.5-5.0); LYMPH % 5.5 % (24.0-44.0); MEAN CORPUSCULAR HEMOGLOBIN 26.4 pg (27.0-33.0); MEAN CORPUSCULAR HGB CONC 31.7 g/dl (32.0-36.5); MEAN CORPUSCULAR VOLUME 83.1 fl (80.0-96.0); MONO # 0.2 10^3/uL (0.0-0.8); NEUTROPHILS # 9.1 10^3/uL (1.5-8.5); NEUTROPHILS % 90.8 % (36.0-66.0); PLATELET COUNT, AUTOMATED 262 10^3/uL (150-450); RED BLOOD COUNT 4.78 10^6/uL (4.00-5.40)
[2022-01-20 22:45] VITALS: BP 144/68
[2022-01-20 23:08] LABS: CK-MB VALUE MASS < 1.0 NG/ML (<3.6); CPK CREATINE PHOSPHOKINASE 149 U/L (26-192); MB/CK RELATIVE INDEX 0.67 (< OR =4)
[2022-01-20 23:09] LABS: BLOOD UREA NITROGEN 11 MG/DL (7-18); CARBON DIOXIDE LEVEL 24 MEQ/L (21-32); CHLORIDE LEVEL 109 MEQ/L (98-107); CREATININE FOR GFR 0.93 MG/DL (0.55-1.30); GLOMERULAR FILTRATION RATE > 60.0 (>51); GLUCOSE, FASTING 181 MG/DL (70-100); POTASSIUM SERUM 4.2 MEQ/L (3.5-5.1); SODIUM LEVEL 140 MEQ/L (136-145)
[2022-01-21] MEDS ORDERED: BENZ200C70 PO ×2 (00:05→20:53)
[2022-01-21] MEDS ORDERED: IPRA0.00 NEB ×2 (00:05→20:53)
[2022-01-21] MEDS ORDERED: LISI10TA22 PO (20:53)
[2022-01-21] MEDS ORDERED: PRED20TA PO (20:53)
[2022-01-21] MEDS ORDERED: NICO21DI37 TD (20:53)
[2022-01-21] MEDS ORDERED: COMBAER6 INH (20:53)
[2022-01-21] MEDS ORDERED: ANOR1AER PO (20:53)
== END 2022-01-21 00:39 | disposition home or self-care (01) ==
LOC: M ED 22:02
DX: J45.901 Unspecified asthma with (acute) exacerbation (principal); R00.0 Tachycardia, unspecified; I10 Essential (primary) hypertension; E78.5 Hyperlipidemia, unspecified; F17.200 Nicotine dependence, unspecified, uncomplicated; Z79.51 Long term (current) use of inhaled steroids; Z91.048 Other nonmedicinal substance allergy status; Z88.1 Allergy status to other antibiotic agents

== ENCOUNTER 2022-01-21 18:27 | Inpatient (IN) | payer OTHER ==
[~2022-01-21] VITALS: Ht 165.1 cm; Wt 166.8 kg
[~2022-01-21 18:27] MED LIST changes: +BENZ200C70 PO; +IPRA0.00 NEB
[2022-01-21 19:20] LABS: BASO % 0.3 % (0.0-1.0); EOS # 0.1 10^3/uL (0.0-0.5); EOS % 0.9 % (0.0-3.0); HEMATOCRIT 40.5 % (36.0-47.0); HEMOGLOBIN 12.9 g/dl (12.0-15.5); LYMPH # 1.8 10^3/uL (1.5-5.0); LYMPH % 16.8 % (24.0-44.0); MEAN CORPUSCULAR HEMOGLOBIN 26.6 pg (27.0-33.0); MEAN CORPUSCULAR HGB CONC 31.9 g/dl (32.0-36.5); MEAN CORPUSCULAR VOLUME 83.5 fl (80.0-96.0); MONO # 0.7 10^3/uL (0.0-0.8); NEUTROPHILS # 7.9 10^3/uL (1.5-8.5); NEUTROPHILS % 74.8 % (36.0-66.0); PLATELET COUNT, AUTOMATED 304 10^3/uL (150-450); RED BLOOD COUNT 4.85 10^6/uL (4.00-5.40); WHITE BLOOD COUNT 10.5 10^3/uL (4.0-10.0)
[2022-01-21] MEDS: MAG SULF 1GM/100ML (MAG RUN) 1 GM in IV 1 EA IV SCH ×2 (19:25→19:44)
[2022-01-21 19:49] LABS: ALBUMIN 3.6 GM/DL (3.2-5.2); ALT/SGPT 40 U/L (12-78); BILIRUBIN,DIRECT 0.1 MG/DL (0.0-0.2); BILIRUBIN,TOTAL 0.4 MG/DL (0.2-1.0); BLOOD UREA NITROGEN 10 MG/DL (7-18); CALCIUM LEVEL 9.2 MG/DL (8.5-10.1); CARBON DIOXIDE LEVEL 27 MEQ/L (21-32); CHLORIDE LEVEL 108 MEQ/L (98-107); CREATININE FOR GFR 0.92 MG/DL (0.55-1.30); GLOMERULAR FILTRATION RATE > 60.0 (>51); GLUCOSE, FASTING 102 MG/DL (70-100); NT-PRO BNP 81 PG/ML (<125); POTASSIUM SERUM 3.7 MEQ/L (3.5-5.1); SODIUM LEVEL 142 MEQ/L (136-145); THYROXINE (T4) 8.7 UG/DL (4.5-12.0); TOTAL PROTEIN 7.5 GM/DL (6.4-8.2)
[2022-01-21 19:51] LABS: ABG BASE EXCESS -1.3 (-2.0-2.0); ABG HCO3 22.5 MEQ/L (22.0-26.0); ABG PARTIAL PRESSURE O2 67.7 mmHg (75.0-100.0); ABG STANDARD HCO3 23.3 MEQ/L (22.0-26.0); ABG TOTAL CO2 23.6 MEQ/L (22.0-29.0); ABG pH (ARTERIAL) 7.426 UNITS (7.350-7.450)
[2022-01-21] MEDS: LEVALBUTEROL 1.25 MG/0.5 ML CONCENTRATE NEB NEB PRN ×3 (20:49→21:13)
[2022-01-21] MEDS ORDERED: IPRA0.00 NEB (20:53)
[2022-01-21] MEDS ORDERED: LISI10TA22 PO (20:53)
[2022-01-21] MEDS ORDERED: COMBAER6 INH (20:53)
[2022-01-21] MEDS ORDERED: NICO21DI37 TD (20:53)
[2022-01-21] MEDS ORDERED: BENZ200C70 PO (20:53)
[2022-01-21] MEDS ORDERED: ANOR1AER PO (20:53)
[2022-01-21] MEDS ORDERED: PRED20TA PO (20:53)
[2022-01-21] MEDS ORDERED: HOME MED LIST COMPLETE! XX SCH (20:55)
[2022-01-21] MEDS ORDERED: NICOTINE 21MG/24HR 1 EA TRANSDERMAL TD ONE (21:20)
[2022-01-21] MEDS: LevoFLOXacin 750 MG TABLET PO SCH (22:19)
[2022-01-21] MEDS ORDERED: NS 1,000 ML IV SCH (23:00)
[2022-01-21] MEDS: methylPREDNISolone 125MG 2ML VIAL IV SCH (23:45)
[2022-01-21 23:47] VITALS: BP 135/81
[2022-01-21 23:55] LABS: HEMOGLOBIN A1c 6.3 %
[2022-01-22] VITALS (10 sets, daily range): BP systolic 112–139; BP diastolic 56–73; O2SAT 92–99
[2022-01-22] MEDS ORDERED: LEVALBUTEROL 1.25 MG/0.5 ML CONCENTRATE NEB INH PRN (00:05)
[2022-01-22] MEDS ORDERED: IPRATROPIUM 0.02% SOLN 0.5MG 2.5ML NEB NEB SCH (02:00)
[2022-01-22] MEDS ORDERED: LEVALBUTEROL 1.25 MG/0.5 ML CONCENTRATE NEB NEB SCH (02:00)
[2022-01-22 05:09] LABS: BASO % 0.1 % (0.0-1.0); EOS % 0.1 % (0.0-3.0); HEMATOCRIT 38.4 % (36.0-47.0); HEMOGLOBIN 12.2 g/dl (12.0-15.5); LYMPH # 0.5 10^3/uL (1.5-5.0); LYMPH % 3.5 % (24.0-44.0); MEAN CORPUSCULAR HEMOGLOBIN 26.4 pg (27.0-33.0); MEAN CORPUSCULAR HGB CONC 31.8 g/dl (32.0-36.5); MEAN CORPUSCULAR VOLUME 83.1 fl (80.0-96.0); MONO # 0.3 10^3/uL (0.0-0.8); MONO % 1.8 % (2.0-8.0); NEUTROPHILS # 13.3 10^3/uL (1.5-8.5); NEUTROPHILS % 94.1 % (36.0-66.0); PLATELET COUNT, AUTOMATED 299 10^3/uL (150-450); RED BLOOD COUNT 4.62 10^6/uL (4.00-5.40); WHITE BLOOD COUNT 14.2 10^3/uL (4.0-10.0)
[2022-01-22] MEDS: FLUTICASONE PROP 0.05% NASAL SPRAY 16 GM (FLONASE) NARES SCH ×3 (05:28→20:47)
[2022-01-22 05:35] LABS: BLOOD UREA NITROGEN 11 MG/DL (7-18); CARBON DIOXIDE LEVEL 27 MEQ/L (21-32); CHLORIDE LEVEL 106 MEQ/L (98-107); CREATININE FOR GFR 0.81 MG/DL (0.55-1.30); GLOMERULAR FILTRATION RATE > 60.0 (>51); GLUCOSE, FASTING 188 MG/DL (70-100); MAGNESIUM LEVEL 2.4 MG/DL (1.8-2.4); POTASSIUM SERUM 4.5 MEQ/L (3.5-5.1); SODIUM LEVEL 138 MEQ/L (136-145)
[2022-01-22 06:02] LABS: ABG BASE EXCESS -2.2 (-2.0-2.0); ABG HCO3 22.1 MEQ/L (22.0-26.0); ABG O2 SATURATION 92.1 % (95.0-99.0); ABG PARTIAL PRESSURE CO2 36.3 mmHg (35.0-45.0); ABG PARTIAL PRESSURE O2 63.6 mmHg (75.0-100.0); ABG STANDARD HCO3 22.6 MEQ/L (22.0-26.0); ABG TOTAL CO2 23.2 MEQ/L (22.0-29.0); ABG pH (ARTERIAL) 7.402 UNITS (7.350-7.450)
[2022-01-22] MEDS: methylPREDNISolone 125MG 2ML VIAL IV SCH ×3 (06:06→22:31)
[2022-01-22] MEDS: LEVALBUTEROL 1.25 MG/0.5 ML CONCENTRATE NEB INH PRN ×4 (06:13→20:47)
[2022-01-22 06:55] LABS: VENOUS BASE EXCESS -0.5 (-2.0-2.0); VENOUS HCO3 24.4 MEQ/L (23.0-27.0); VENOUS O2 SATURATION 96.7 % (60.0-80.0); VENOUS PARTIAL PRESSURE CO2 41.1 mmHg (38.0-50.0); VENOUS PARTIAL PRESSURE O2 91.6 mmHg (30.0-50.0); VENOUS PH 7.391 UNITS (7.330-7.430); VENOUS TOTAL CO2 25.6 MEQ/L (24.0-28.0)
[2022-01-22] MEDS: LEVALBUTEROL 1.25 MG/0.5 ML CONCENTRATE NEB NEB SCH ×5 (07:26→23:05)
[2022-01-22] MEDS: IPRATROPIUM 0.02% SOLN 0.5MG 2.5ML NEB NEB SCH ×5 (07:26→23:05)
[2022-01-22] MEDS ORDERED: ISOVUE-370 76% 100ML VIAL As Ordered ONE (07:57)
[2022-01-22] MEDS ORDERED: BUDESONIDE 0.5 MG/2 ML INHALATION SUSPENSION INH SCH (08:00)
[2022-01-22] MEDS: OMEPRAZOLE 20MG CAP PO SCH ×2 (09:44→20:47)
[2022-01-22] MEDS: ENOXAPARIN 40MG/0.4ML SYRINGE (J1650 PER 10MG) SC SCH (09:44)
[2022-01-22] MEDS: LACTOBACILLUS ACIDOPHILUS CAP (BACID) PO SCH (09:44)
[2022-01-22] MEDS: CETIRIZINE (ZyrTEC) 10 MG TAB PO SCH (09:45)
[2022-01-22] MEDS: guaiFENesin ER 600 MG TAB PO SCH ×2 (09:49→20:48)
[2022-01-22 10:06] LABS: CK-MB VALUE MASS 3.9 NG/ML (<3.6); MB/CK RELATIVE INDEX 1.99 (< OR =4)
[2022-01-22 15:32] LABS: CK-MB VALUE MASS 4.2 NG/ML (<3.6); MB/CK RELATIVE INDEX 2.04 (< OR =4)
[2022-01-22] MEDS: BENZONATATE 100MG CAPSULE PO PRN ×2 (15:49→20:47)
[2022-01-22] MEDS: ACETAMINOPHEN TAB 650MG DOSE (2X325MG) PO PRN (15:51)
[2022-01-22] MEDS: LevoFLOXacin 750 MG TABLET PO SCH (18:32)
[2022-01-22] MEDS: SYMBICORT 160/4.5MCG INHALER 6GM INH SCH (19:02)
[2022-01-22] MEDS: NICOTINE 21MG/24HR 1 EA TRANSDERMAL TD PRN (20:54)
[2022-01-22 22:53] LABS: CK-MB VALUE MASS 5.6 NG/ML (<3.6); MB/CK RELATIVE INDEX 2.45 (< OR =4)
[2022-01-23] VITALS (15 sets, daily range): BP systolic 111–125; BP diastolic 52–79; O2SAT 94–100
[2022-01-23] MEDS: LEVALBUTEROL 1.25 MG/0.5 ML CONCENTRATE NEB INH PRN ×2 (02:06→21:45)
[2022-01-23] MEDS: BENZONATATE 100MG CAPSULE PO PRN (02:32)
[2022-01-23] MEDS: ACETAMINOPHEN TAB 650MG DOSE (2X325MG) PO PRN (02:33)
[2022-01-23] MEDS: LEVALBUTEROL 1.25 MG/0.5 ML CONCENTRATE NEB NEB SCH ×5 (04:58→19:09)
[2022-01-23] MEDS: IPRATROPIUM 0.02% SOLN 0.5MG 2.5ML NEB NEB SCH ×3 (04:58→11:14)
[2022-01-23] MEDS: methylPREDNISolone 125MG 2ML VIAL IV SCH ×3 (06:00→22:06)
[2022-01-23 08:09] LABS: BASO % 0.1 % (0.0-1.0); HEMATOCRIT 39.3 % (36.0-47.0); HEMOGLOBIN 12.4 g/dl (12.0-15.5); LYMPH # 0.7 10^3/uL (1.5-5.0); LYMPH % 3.4 % (24.0-44.0); MEAN CORPUSCULAR HEMOGLOBIN 26.3 pg (27.0-33.0); MEAN CORPUSCULAR HGB CONC 31.6 g/dl (32.0-36.5); MEAN CORPUSCULAR VOLUME 83.3 fl (80.0-96.0); MONO # 0.5 10^3/uL (0.0-0.8); MONO % 2.3 % (2.0-8.0); NEUTROPHILS # 18.3 10^3/uL (1.5-8.5); NEUTROPHILS % 93.4 % (36.0-66.0); PLATELET COUNT, AUTOMATED 309 10^3/uL (150-450); RED BLOOD COUNT 4.72 10^6/uL (4.00-5.40); WHITE BLOOD COUNT 19.6 10^3/uL (4.0-10.0)
[2022-01-23] MEDS: SYMBICORT 160/4.5MCG INHALER 6GM INH SCH (08:12)
[2022-01-23 08:36] LABS: BLOOD UREA NITROGEN 17 MG/DL (7-18); CALCIUM LEVEL 9.4 MG/DL (8.5-10.1); CARBON DIOXIDE LEVEL 27 MEQ/L (21-32); CHLORIDE LEVEL 108 MEQ/L (98-107); CREATININE FOR GFR 0.76 MG/DL (0.55-1.30); GLOMERULAR FILTRATION RATE > 60.0 (>51); GLUCOSE, FASTING 157 MG/DL (70-100); POTASSIUM SERUM 4.6 MEQ/L (3.5-5.1); SODIUM LEVEL 140 MEQ/L (136-145)
[2022-01-23] MEDS: LACTOBACILLUS ACIDOPHILUS CAP (BACID) PO SCH (08:42)
[2022-01-23] MEDS: guaiFENesin ER 600 MG TAB PO SCH ×2 (08:42→20:46)
[2022-01-23] MEDS: OMEPRAZOLE 20MG CAP PO SCH ×2 (08:42→20:46)
[2022-01-23] MEDS: CETIRIZINE (ZyrTEC) 10 MG TAB PO SCH (08:42)
[2022-01-23] MEDS: FLUTICASONE PROP 0.05% NASAL SPRAY 16 GM (FLONASE) NARES SCH ×2 (08:46→20:46)
[2022-01-23] MEDS: ENOXAPARIN 40MG/0.4ML SYRINGE (J1650 PER 10MG) SC SCH (08:46)
[2022-01-23] MEDS: ANORO ELLIPTA INH SCH (16:30)
[2022-01-23] MEDS: LevoFLOXacin 750 MG TABLET PO SCH (17:58)
[2022-01-23] MEDS: QVAR REDIHALER INH SCH (19:21)
[2022-01-23] MEDS: NICOTINE 21MG/24HR 1 EA TRANSDERMAL TD PRN (22:06)
[2022-01-24] VITALS (9 sets, daily range): BP systolic 110–118; BP diastolic 53–72; O2SAT 94–99
[2022-01-24] MEDS: LEVALBUTEROL 1.25 MG/0.5 ML CONCENTRATE NEB NEB SCH ×7 (00:35→23:48)
[2022-01-24 05:42] LABS: BASO % 0.1 % (0.0-1.0); EOS % 0.1 % (0.0-3.0); HEMATOCRIT 35.6 % (36.0-47.0); HEMOGLOBIN 11.2 g/dl (12.0-15.5); LYMPH # 0.9 10^3/uL (1.5-5.0); LYMPH % 6.1 % (24.0-44.0); MEAN CORPUSCULAR HEMOGLOBIN 26.9 pg (27.0-33.0); MEAN CORPUSCULAR HGB CONC 31.5 g/dl (32.0-36.5); MEAN CORPUSCULAR VOLUME 85.6 fl (80.0-96.0); MONO # 0.4 10^3/uL (0.0-0.8); MONO % 2.8 % (2.0-8.0); NEUTROPHILS # 12.7 10^3/uL (1.5-8.5); NEUTROPHILS % 90.4 % (36.0-66.0); PLATELET COUNT, AUTOMATED 281 10^3/uL (150-450); RED BLOOD COUNT 4.16 10^6/uL (4.00-5.40); WHITE BLOOD COUNT 14.1 10^3/uL (4.0-10.0)
[2022-01-24 06:14] LABS: BLOOD UREA NITROGEN 27 MG/DL (7-18); CALCIUM LEVEL 8.7 MG/DL (8.5-10.1); CARBON DIOXIDE LEVEL 29 MEQ/L (21-32); CHLORIDE LEVEL 108 MEQ/L (98-107); GLOMERULAR FILTRATION RATE > 60.0 (>51); GLUCOSE, FASTING 186 MG/DL (70-100); POTASSIUM SERUM 4.7 MEQ/L (3.5-5.1); SODIUM LEVEL 142 MEQ/L (136-145)
[2022-01-24] MEDS: methylPREDNISolone 125MG 2ML VIAL IV SCH ×3 (06:19→22:57)
[2022-01-24] MEDS: ANORO ELLIPTA INH SCH (08:16)
[2022-01-24] MEDS: QVAR REDIHALER INH SCH ×2 (08:17→20:04)
[2022-01-24] MEDS: LACTOBACILLUS ACIDOPHILUS CAP (BACID) PO SCH (08:31)
[2022-01-24] MEDS: ENOXAPARIN 40MG/0.4ML SYRINGE (J1650 PER 10MG) SC SCH (08:31)
[2022-01-24] MEDS: OMEPRAZOLE 20MG CAP PO SCH ×2 (08:32→20:09)
[2022-01-24] MEDS: CETIRIZINE (ZyrTEC) 10 MG TAB PO SCH (08:32)
[2022-01-24] MEDS: FLUTICASONE PROP 0.05% NASAL SPRAY 16 GM (FLONASE) NARES SCH ×2 (08:33→20:09)
[2022-01-24] MEDS: guaiFENesin ER 600 MG TAB PO SCH ×2 (11:23→20:09)
[2022-01-24] MEDS: LevoFLOXacin 750 MG TABLET PO SCH (16:47)
[2022-01-24] MEDS: NICOTINE 21MG/24HR 1 EA TRANSDERMAL TD PRN (20:09)
[2022-01-25 04:00] VITALS: BP 115/57
[2022-01-25] MEDS: LEVALBUTEROL 1.25 MG/0.5 ML CONCENTRATE NEB NEB SCH ×5 (04:43→19:42)
[2022-01-25] MEDS: methylPREDNISolone 125MG 2ML VIAL IV SCH ×3 (06:35→22:47)
[2022-01-25] MEDS: QVAR REDIHALER INH SCH ×2 (07:17→19:42)
[2022-01-25] MEDS: ANORO ELLIPTA INH SCH (07:17)
[2022-01-25 08:00] VITALS: BP 141/63
[2022-01-25] MEDS: FLUTICASONE PROP 0.05% NASAL SPRAY 16 GM (FLONASE) NARES SCH ×2 (09:00→20:33)
[2022-01-25] MEDS: OMEPRAZOLE 20MG CAP PO SCH ×2 (09:40→20:33)
[2022-01-25] MEDS: guaiFENesin ER 600 MG TAB PO SCH ×2 (09:40→20:33)
[2022-01-25] MEDS: LACTOBACILLUS ACIDOPHILUS CAP (BACID) PO SCH (09:40)
[2022-01-25] MEDS: CETIRIZINE (ZyrTEC) 10 MG TAB PO SCH (09:40)
[2022-01-25] MEDS: ENOXAPARIN 40MG/0.4ML SYRINGE (J1650 PER 10MG) SC SCH (09:41)
[2022-01-25 09:51] LABS: BASO % 0.1 % (0.0-1.0); HEMATOCRIT 38.1 % (36.0-47.0); HEMOGLOBIN 11.8 g/dl (12.0-15.5); LYMPH # 0.9 10^3/uL (1.5-5.0); LYMPH % 9.5 % (24.0-44.0); MEAN CORPUSCULAR HEMOGLOBIN 26.4 pg (27.0-33.0); MEAN CORPUSCULAR VOLUME 85.2 fl (80.0-96.0); MONO # 0.3 10^3/uL (0.0-0.8); MONO % 3.5 % (2.0-8.0); NEUTROPHILS # 7.7 10^3/uL (1.5-8.5); NEUTROPHILS % 86.2 % (36.0-66.0); PLATELET COUNT, AUTOMATED 302 10^3/uL (150-450); RED BLOOD COUNT 4.47 10^6/uL (4.00-5.40)
[2022-01-25 10:13] LABS: BLOOD UREA NITROGEN 23 MG/DL (7-18); CALCIUM LEVEL 9.4 MG/DL (8.5-10.1); CARBON DIOXIDE LEVEL 31 MEQ/L (21-32); CHLORIDE LEVEL 107 MEQ/L (98-107); CREATININE FOR GFR 0.82 MG/DL (0.55-1.30); GLOMERULAR FILTRATION RATE > 60.0 (>51); GLUCOSE, FASTING 188 MG/DL (70-100); MAGNESIUM LEVEL 2.4 MG/DL (1.8-2.4); POTASSIUM SERUM 4.6 MEQ/L (3.5-5.1); SODIUM LEVEL 142 MEQ/L (136-145)
[2022-01-25 12:00] VITALS: BP 122/70
[2022-01-25 16:08] LABS: MYCOPLASMA PNEUMONIAE IgG 677 U/mL (0-99); MYCOPLASMA PNEUMONIAE IgM <770 U/mL (0-769)
[2022-01-25] MEDS: LevoFLOXacin 750 MG TABLET PO SCH (17:54)
[2022-01-25] MEDS: NYSTATIN 500,000 U/5 ML SUSP UDC SS SCH ×2 (17:54→20:33)
[2022-01-25 20:10] VITALS: BP 123/61
[2022-01-26] VITALS (22 sets, daily range): BP systolic 108–132; BP diastolic 53–64; O2SAT 91–99
[2022-01-26] MEDS: LEVALBUTEROL 1.25 MG/0.5 ML CONCENTRATE NEB NEB SCH ×7 (04:32→17:33)
[2022-01-26] MEDS: methylPREDNISolone 125MG 2ML VIAL IV SCH ×2 (05:53→20:31)
[2022-01-26 05:56] LABS: HEMATOCRIT 36.7 % (36.0-47.0); HEMOGLOBIN 11.2 g/dl (12.0-15.5); LYMPH # 1.1 10^3/uL (1.5-5.0); MEAN CORPUSCULAR HGB CONC 30.5 g/dl (32.0-36.5); MEAN CORPUSCULAR VOLUME 85.3 fl (80.0-96.0); MONO # 0.4 10^3/uL (0.0-0.8); MONO % 4.7 % (2.0-8.0); NEUTROPHILS # 6.1 10^3/uL (1.5-8.5); NEUTROPHILS % 80.5 % (36.0-66.0); PLATELET COUNT, AUTOMATED 265 10^3/uL (150-450); WHITE BLOOD COUNT 7.6 10^3/uL (4.0-10.0)
[2022-01-26 06:27] LABS: BLOOD UREA NITROGEN 22 MG/DL (7-18); CARBON DIOXIDE LEVEL 33 MEQ/L (21-32); CHLORIDE LEVEL 105 MEQ/L (98-107); CREATININE FOR GFR 0.78 MG/DL (0.55-1.30); GLOMERULAR FILTRATION RATE > 60.0 (>51); GLUCOSE, FASTING 223 MG/DL (70-100); MAGNESIUM LEVEL 2.4 MG/DL (1.8-2.4); POTASSIUM SERUM 4.8 MEQ/L (3.5-5.1); SODIUM LEVEL 141 MEQ/L (136-145)
[2022-01-26] MEDS: QVAR REDIHALER INH SCH ×2 (07:29→17:32)
[2022-01-26] MEDS: ANORO ELLIPTA INH SCH (07:29)
[2022-01-26] MEDS: LACTOBACILLUS ACIDOPHILUS CAP (BACID) PO SCH (10:01)
[2022-01-26] MEDS: ENOXAPARIN 40MG/0.4ML SYRINGE (J1650 PER 10MG) SC SCH (10:01)
[2022-01-26] MEDS: OMEPRAZOLE 20MG CAP PO SCH ×2 (10:02→20:31)
[2022-01-26] MEDS: NYSTATIN 500,000 U/5 ML SUSP UDC SS SCH ×4 (10:02→20:30)
[2022-01-26] MEDS: CETIRIZINE (ZyrTEC) 10 MG TAB PO SCH (10:03)
[2022-01-26] MEDS: guaiFENesin ER 600 MG TAB PO SCH ×2 (10:03→20:30)
[2022-01-26] MEDS: FLUTICASONE PROP 0.05% NASAL SPRAY 16 GM (FLONASE) NARES SCH ×2 (10:04→20:31)
[2022-01-26 14:09] LABS: CHLAMYDIA PNEUMONIAE IgG 1:32 (Neg:<1:16); CHLAMYDIA PNEUMONIAE IgM <1:10 (Neg:<1:10)
[2022-01-26] MEDS: LevoFLOXacin 750 MG TABLET PO SCH (18:05)
[2022-01-26] MEDS: LEVALBUTEROL 1.25 MG/0.5 ML CONCENTRATE NEB INH PRN (20:16)
[2022-01-27] VITALS (27 sets, daily range): BP systolic 118–140; BP diastolic 54–75; O2SAT 79–98
[2022-01-27] MEDS: LEVALBUTEROL 1.25 MG/0.5 ML CONCENTRATE NEB NEB SCH ×6 (04:00→19:31)
[2022-01-27 05:36] LABS: HEMATOCRIT 35.1 % (36.0-47.0); HEMOGLOBIN 10.9 g/dl (12.0-15.5); MEAN CORPUSCULAR HEMOGLOBIN 26.4 pg (27.0-33.0); MEAN CORPUSCULAR HGB CONC 31.1 g/dl (32.0-36.5); PLATELET COUNT, AUTOMATED 224 10^3/uL (150-450); RED BLOOD COUNT 4.13 10^6/uL (4.00-5.40); WHITE BLOOD COUNT 9.3 10^3/uL (4.0-10.0)
[2022-01-27 05:56] LABS: BLOOD UREA NITROGEN 25 MG/DL (7-18); CALCIUM LEVEL 8.3 MG/DL (8.5-10.1); CARBON DIOXIDE LEVEL 32 MEQ/L (21-32); CHLORIDE LEVEL 107 MEQ/L (98-107); CREATININE FOR GFR 0.77 MG/DL (0.55-1.30); GLOMERULAR FILTRATION RATE > 60.0 (>51); GLUCOSE, FASTING 132 MG/DL (70-100); SODIUM LEVEL 142 MEQ/L (136-145)
[2022-01-27 06:37] LABS: ANISOCYTOSIS 1+; EOSINOPHILS 1 % (0-3); LYMPHOCYTES 57 % (16-44); MONOCYTES 4 % (0-5); NEUTROPHILS 38 % (28-66); PLATELET ESTIMATE NORMAL (NORMAL)
[2022-01-27] MEDS: QVAR REDIHALER INH SCH ×2 (07:34→19:32)
[2022-01-27] MEDS: ANORO ELLIPTA INH SCH (07:35)
[2022-01-27] MEDS: NICOTINE 21MG/24HR 1 EA TRANSDERMAL TD PRN (08:47)
[2022-01-27] MEDS: NYSTATIN 500,000 U/5 ML SUSP UDC SS SCH ×4 (08:48→20:01)
[2022-01-27] MEDS: methylPREDNISolone 125MG 2ML VIAL IV SCH (08:48)
[2022-01-27] MEDS: CETIRIZINE (ZyrTEC) 10 MG TAB PO SCH (08:49)
[2022-01-27] MEDS: LACTOBACILLUS ACIDOPHILUS CAP (BACID) PO SCH (08:49)
[2022-01-27] MEDS: ENOXAPARIN 40MG/0.4ML SYRINGE (J1650 PER 10MG) SC SCH (08:49)
[2022-01-27] MEDS: guaiFENesin ER 600 MG TAB PO SCH ×2 (08:50→20:01)
[2022-01-27] MEDS: OMEPRAZOLE 20MG CAP PO SCH ×2 (08:50→20:00)
[2022-01-27] MEDS: ACETAMINOPHEN TAB 650MG DOSE (2X325MG) PO PRN (08:51)
[2022-01-27] MEDS: FLUTICASONE PROP 0.05% NASAL SPRAY 16 GM (FLONASE) NARES SCH ×2 (08:51→20:01)
[2022-01-27] MEDS ORDERED: predniSONE 20 MG TAB PO ONE (14:00)
[2022-01-27 15:08] LABS: BODY FLUID CULTURE Not indicated. (.); LEGIONELLA ANTIGEN URINE Negative (Negative); ORGANISM ID Not indicated. (.); SPECIMEN SOURCE Urine (.); URINE STREP PNEUMONIAE ANTIGEN Negative (Negative)
[2022-01-28 03:49] VITALS: BP 112/55
[2022-01-28] MEDS: LEVALBUTEROL 1.25 MG/0.5 ML CONCENTRATE NEB NEB SCH ×4 (04:00→11:12)
[2022-01-28 05:56] LABS: BASO % 0.1 % (0.0-1.0); EOS # 0.1 10^3/uL (0.0-0.5); EOS % 0.8 % (0.0-3.0); HEMATOCRIT 35.6 % (36.0-47.0); HEMOGLOBIN 11.4 g/dl (12.0-15.5); LYMPH # 3.8 10^3/uL (1.5-5.0); LYMPH % 31.8 % (24.0-44.0); MEAN CORPUSCULAR HEMOGLOBIN 26.6 pg (27.0-33.0); MONO # 0.7 10^3/uL (0.0-0.8); NEUTROPHILS # 7.2 10^3/uL (1.5-8.5); NEUTROPHILS % 60.3 % (36.0-66.0); PLATELET COUNT, AUTOMATED 242 10^3/uL (150-450); RED BLOOD COUNT 4.29 10^6/uL (4.00-5.40); WHITE BLOOD COUNT 11.9 10^3/uL (4.0-10.0)
[2022-01-28 06:24] LABS: BLOOD UREA NITROGEN 17 MG/DL (7-18); CALCIUM LEVEL 8.6 MG/DL (8.5-10.1); CARBON DIOXIDE LEVEL 33 MEQ/L (21-32); CHLORIDE LEVEL 106 MEQ/L (98-107); CREATININE FOR GFR 0.75 MG/DL (0.55-1.30); GLOMERULAR FILTRATION RATE > 60.0 (>51); GLUCOSE, FASTING 175 MG/DL (70-100); MAGNESIUM LEVEL 2.3 MG/DL (1.8-2.4); POTASSIUM SERUM 4.1 MEQ/L (3.5-5.1); SODIUM LEVEL 143 MEQ/L (136-145)
[2022-01-28] MEDS: LACTOBACILLUS ACIDOPHILUS CAP (BACID) PO SCH (08:13)
[2022-01-28] MEDS: NYSTATIN 500,000 U/5 ML SUSP UDC SS SCH (08:13)
[2022-01-28] MEDS: OMEPRAZOLE 20MG CAP PO SCH (08:13)
[2022-01-28] MEDS: ENOXAPARIN 40MG/0.4ML SYRINGE (J1650 PER 10MG) SC SCH (08:14)
[2022-01-28] MEDS: guaiFENesin ER 600 MG TAB PO SCH (08:14)
[2022-01-28] MEDS: CETIRIZINE (ZyrTEC) 10 MG TAB PO SCH (08:14)
[2022-01-28 08:15] VITALS: BP 132/76
[2022-01-28] MEDS: QVAR REDIHALER INH SCH (08:19)
[2022-01-28 08:21] VITALS: BP 132/70
[2022-01-28] MEDS: FLUTICASONE PROP 0.05% NASAL SPRAY 16 GM (FLONASE) NARES SCH (08:21)
[2022-01-28] MEDS ORDERED: predniSONE 20 MG TAB PO SCH (09:00)
[2022-01-28] MEDS ORDERED: PRED5PAK PO (09:58)
[2022-01-28] MEDS: NICOTINE 21MG/24HR 1 EA TRANSDERMAL TD PRN (11:32)
== END 2022-01-28 11:43 | disposition home or self-care (01) | DRG 141 ==
LOC: M ED 18:27 → M ED INP 21:18 → M PCU 23:31
PROVIDERS: ADMIT Family Medicine; ATTEND Family Medicine
DX: J45.901 Unspecified asthma with (acute) exacerbation (principal); U07.1 COVID-19; J96.01 Acute respiratory failure with hypoxia; F17.200 Nicotine dependence, unspecified, uncomplicated; I10 Essential (primary) hypertension; K21.9 Gastro-esophageal reflux disease without esophagitis; D72.829 Elevated white blood cell count, unspecified; Z79.899 Other long term (current) drug therapy; Z88.1 Allergy status to other antibiotic agents

== ENCOUNTER 2022-07-21 09:34 | Emergency (ER) | payer OTHER ==
[~2022-07-21] VITALS: Ht 162.6 cm; Wt 168.2 kg
[~2022-07-21 09:34] MED LIST changes: +ALBU2.5V10 NEB; -ALBU83IN NEB; +ANOR1AER PO; +LEVO1TAB40 PO; -LEVO750T13 PO; +LISI10TA22 PO; +NICO21DI37 TD; +PRED5PAK PO
[2022-07-21 09:49] VITALS: BP 145/90
== END 2022-07-21 12:03 | disposition home or self-care (01) ==
LOC: M ED 09:34
DX: F43.21 Adjustment disorder with depressed mood (principal); Z63.4 Disappearance and death of family member; I10 Essential (primary) hypertension; F32.A Depression, unspecified; J45.909 Unspecified asthma, uncomplicated; F17.200 Nicotine dependence, unspecified, uncomplicated; K21.9 Gastro-esophageal reflux disease without esophagitis; Z91.048 Other nonmedicinal substance allergy status; Z88.1 Allergy status to other antibiotic agents; Z79.51 Long term (current) use of inhaled steroids; Z79.811 Long term (current) use of aromatase inhibitors; Z79.899 Other long term (current) drug therapy

== ENCOUNTER 2022-09-27 05:05 | Inpatient (IN) | payer OTHER ==
[~2022-09-27] VITALS: Ht 162.6 cm; Wt 167.0 kg
[2022-09-27] VITALS (11 sets, daily range): BP systolic 125–168; BP diastolic 60–86; O2SAT 94–97
[2022-09-27] MEDS ORDERED: ALBUTEROL SULFATE 2.5 MG/0.5 ML INH NEB SOLN NEB ONE (05:15)
[2022-09-27] MEDS ORDERED: IPRATROPIUM 0.5MG/ALBUTEROL 2.5MG INH SOL UD 3ML (DUONEB) NEB ONE ×2 (05:15→10:40)
[2022-09-27 05:34] LABS: BASO # 0.1 10^3/uL (0.0-0.2); BASO % 0.8 % (0.0-1.0); EOS # 0.7 10^3/uL (0.0-0.5); EOS % 9.7 % (0.0-3.0); HEMATOCRIT 42.4 % (36.0-47.0); HEMOGLOBIN 12.5 g/dl (12.0-15.5); LYMPH # 2.3 10^3/uL (1.5-5.0); LYMPH % 29.4 % (24.0-44.0); MEAN CORPUSCULAR HEMOGLOBIN 24.2 pg (27.0-33.0); MEAN CORPUSCULAR HGB CONC 29.5 g/dl (32.0-36.5); MONO # 0.6 10^3/uL (0.0-0.8); MONO % 7.2 % (2.0-8.0); NEUTROPHILS % 52.6 % (36.0-66.0); PLATELET COUNT, AUTOMATED 328 10^3/uL (150-450); RED BLOOD COUNT 5.17 10^6/uL (4.00-5.40); WHITE BLOOD COUNT 7.7 10^3/uL (4.0-10.0)
[2022-09-27 05:42] LABS: ABG BASE EXCESS -1.9 (-2.0-2.0); ABG HCO3 23.8 MEQ/L (22.0-26.0); ABG PARTIAL PRESSURE CO2 44.6 mmHg (35.0-45.0); ABG PARTIAL PRESSURE O2 66.6 mmHg (75.0-100.0); ABG STANDARD HCO3 22.8 MEQ/L (22.0-26.0); ABG TOTAL CO2 25.2 MEQ/L (22.0-29.0); ABG pH (ARTERIAL) 7.346 UNITS (7.350-7.450)
[2022-09-27 05:44] LABS: INR 0.89; PROTHROMBIN TIME 12.3 SECONDS (12.5-14.5)
[2022-09-27 06:10] LABS: MB/CK RELATIVE INDEX 0.79 (< OR =4)
[2022-09-27 06:12] LABS: ALBUMIN 3.6 GM/DL (3.2-5.2); ALT/SGPT 41 U/L (12-78); BILIRUBIN,DIRECT < 0.1 MG/DL (0.0-0.2); BILIRUBIN,TOTAL 0.3 MG/DL (0.2-1.0); BLOOD UREA NITROGEN 15 MG/DL (7-18); CALCIUM LEVEL 9.3 MG/DL (8.5-10.1); CARBON DIOXIDE LEVEL 27 MEQ/L (21-32); CHLORIDE LEVEL 107 MEQ/L (98-107); CREATININE FOR GFR 0.92 MG/DL (0.55-1.30); GLOMERULAR FILTRATION RATE > 60.0 (>51); GLUCOSE, FASTING 174 MG/DL (70-100); NT-PRO BNP 53 PG/ML (<125); POTASSIUM SERUM 4.4 MEQ/L (3.5-5.1); SODIUM LEVEL 138 MEQ/L (136-145); TOTAL PROTEIN 7.3 GM/DL (6.4-8.2)
[2022-09-27] MEDS ORDERED: MUCI600T31 PO (07:16)
[2022-09-27] MEDS ORDERED: HOME MED LIST COMPLETE! XX SCH (07:20)
[2022-09-27] MEDS ORDERED: ACETAMINOPHEN TAB 650MG DOSE (2X325MG) PO PRN (10:35)
[2022-09-27] MEDS: CETIRIZINE (ZyrTEC) 10 MG TAB PO SCH (11:47)
[2022-09-27] MEDS: guaiFENesin ER 600 MG TAB PO PRN (11:47)
[2022-09-27] MEDS: OMEPRAZOLE 20MG CAP PO SCH ×2 (11:47→20:20)
[2022-09-27] MEDS: NICOTINE 21MG/24HR 1 EA TRANSDERMAL TD PRN (11:49)
[2022-09-27] MEDS: ENOXAPARIN 60MG/0.6ML SYRINGE (J1650 PER 10MG) SC SCH (12:40)
[2022-09-27] MEDS ORDERED: ISOVUE-370 76% 100ML VIAL As Ordered ONE (13:35)
[2022-09-27] MEDS: IPRATROPIUM 0.5MG/ALBUTEROL 2.5MG INH SOL UD 3ML (DUONEB) NEB SCH ×2 (15:36→18:11)
[2022-09-27] MEDS: FLUTICASONE HFA 110 MCG 12 GM INHALER (FLOVENT) INH SCH (18:12)
[2022-09-27] MEDS: ALBUTEROL SULFATE 2.5 MG/0.5 ML INH NEB SOLN NEB PRN (22:45)
[2022-09-28] VITALS (12 sets, daily range): BP systolic 114–121; BP diastolic 53–75; O2SAT 88–99
[2022-09-28] MEDS: IPRATROPIUM 0.5MG/ALBUTEROL 2.5MG INH SOL UD 3ML (DUONEB) NEB SCH ×4 (00:52→11:29)
[2022-09-28] MEDS: ALBUTEROL SULFATE 2.5 MG/0.5 ML INH NEB SOLN NEB PRN (04:56)
[2022-09-28] MEDS: guaiFENesin ER 600 MG TAB PO PRN (05:05)
[2022-09-28 06:08] LABS: HEMATOCRIT 36.3 % (36.0-47.0); HEMOGLOBIN 10.9 g/dl (12.0-15.5); MEAN CORPUSCULAR HEMOGLOBIN 24.6 pg (27.0-33.0); MEAN CORPUSCULAR VOLUME 81.9 fl (80.0-96.0); PLATELET COUNT, AUTOMATED 268 10^3/uL (150-450); RED BLOOD COUNT 4.43 10^6/uL (4.00-5.40); WHITE BLOOD COUNT 7.2 10^3/uL (4.0-10.0)
[2022-09-28 06:35] LABS: BLOOD UREA NITROGEN 15 MG/DL (7-18); CALCIUM LEVEL 9.1 MG/DL (8.5-10.1); CARBON DIOXIDE LEVEL 27 MEQ/L (21-32); CHLORIDE LEVEL 108 MEQ/L (98-107); CREATININE FOR GFR 0.73 MG/DL (0.55-1.30); GLOMERULAR FILTRATION RATE > 60.0 (>51); GLUCOSE, FASTING 136 MG/DL (70-100); POTASSIUM SERUM 4.2 MEQ/L (3.5-5.1); SODIUM LEVEL 139 MEQ/L (136-145)
[2022-09-28] MEDS: FLUTICASONE HFA 110 MCG 12 GM INHALER (FLOVENT) INH SCH (07:16)
[2022-09-28] MEDS ORDERED: ENOXAPARIN 40MG/0.4ML SYRINGE (J1650 PER 10MG) SC SCH (09:00)
[2022-09-28] MEDS ORDERED: methylPREDNISolone 40MG 1ML VIAL IV SCH (09:00)
[2022-09-28] MEDS: ENOXAPARIN 60MG/0.6ML SYRINGE (J1650 PER 10MG) SC SCH (09:33)
[2022-09-28] MEDS: OMEPRAZOLE 20MG CAP PO SCH (09:36)
[2022-09-28] MEDS: CETIRIZINE (ZyrTEC) 10 MG TAB PO SCH (09:38)
[2022-09-28] MEDS: NICOTINE 21MG/24HR 1 EA TRANSDERMAL TD PRN (12:14)
[2022-09-28] MEDS ORDERED: QVAR80AE8 INH (13:15)
[2022-09-28] MEDS ORDERED: PRED10TA2 PO (13:15)
== END 2022-09-28 14:34 | disposition home or self-care (01) | DRG 141 ==
LOC: M ED 05:05 → EDBD 05:05 → M ED INP 08:19 → M PCU 10:51
PROVIDERS: ADMIT Student in an Organized Health Care Education/Training Program; ATTEND Student in an Organized Health Care Education/Training Program
DX: J45.901 Unspecified asthma with (acute) exacerbation (principal); K21.9 Gastro-esophageal reflux disease without esophagitis; I10 Essential (primary) hypertension; F17.200 Nicotine dependence, unspecified, uncomplicated; E66.01 Morbid (severe) obesity due to excess calories; Z68.44 Body mass index [BMI] 60.0-69.9, adult; F41.9 Anxiety disorder, unspecified; G47.33 Obstructive sleep apnea (adult) (pediatric); Z79.899 Other long term (current) drug therapy; Z88.8 Allergy status to other drugs, medicaments and biological substances

== ENCOUNTER 2022-10-27 12:56 | Inpatient (IN) | payer OTHER ==
[~2022-10-27] VITALS: Ht 162.6 cm; Wt 161.9 kg
[~2022-10-27 12:56] MED LIST changes: +IPRA0.00 INH; +QVAR80AE8 INH
[2022-10-27] MEDS ORDERED: IPRATROPIUM 0.5MG/ALBUTEROL 2.5MG INH SOL UD 3ML (DUONEB) NEB ONE (13:05)
[2022-10-27] MEDS: IPRATROPIUM 0.5MG/ALBUTEROL 2.5MG INH SOL UD 3ML (DUONEB) NEB SCH ×4 (13:19→19:24)
[2022-10-27] MEDS ORDERED: MAG SULF 1GM/100ML (MAG RUN) 1 GM in IV 1 EA IV ONE ×2 (13:20→16:00)
[2022-10-27 13:33] LABS: BASO % 0.4 % (0.0-1.0); EOS # 0.1 10^3/uL (0.0-0.5); EOS % 0.6 % (0.0-3.0); HEMATOCRIT 38.9 % (36.0-47.0); HEMOGLOBIN 11.7 g/dl (12.0-15.5); LYMPH # 0.4 10^3/uL (1.5-5.0); LYMPH % 4.7 % (24.0-44.0); MEAN CORPUSCULAR HEMOGLOBIN 24.4 pg (27.0-33.0); MEAN CORPUSCULAR HGB CONC 30.1 g/dl (32.0-36.5); MONO # 0.6 10^3/uL (0.0-0.8); MONO % 7.1 % (2.0-8.0); NEUTROPHILS # 7.3 10^3/uL (1.5-8.5); PLATELET COUNT, AUTOMATED 278 10^3/uL (150-450); WHITE BLOOD COUNT 8.4 10^3/uL (4.0-10.0)
[2022-10-27 13:58] LABS: ALBUMIN 3.4 G/DL (3.2-5.2); ALKALINE PHOSPHATASE 76 U/L (46-116); ALT/SGPT 27 U/L (7.0-40); AST/SGOT 24 U/L (<34); BILIRUBIN,DIRECT < 0.1 MG/DL (<0.4); BILIRUBIN,TOTAL 0.3 MG/DL (0.3-1.2); BLOOD UREA NITROGEN 11 MG/DL (9-23); CALCIUM LEVEL 9.1 MG/DL (8.5-10.1); CARBON DIOXIDE LEVEL 26 MMOL/L (20-31); CHLORIDE LEVEL 106 MMOL/L (98-107); CREATININE FOR GFR 0.76 MG/DL (0.55-1.30); GLOMERULAR FILTRATION RATE > 60.0 (>51); GLUCOSE, FASTING 130 MG/DL (60-100); POTASSIUM SERUM 4.2 MMOL/L (3.5-5.1); SODIUM LEVEL 138 MMOL/L (136-145); TOTAL PROTEIN 6.7 G/DL (5.7-8.2)
[2022-10-27 14:00] LABS: THYROID STIMULATING HORMONE 0.997 uIU/ML (0.55-4.78)
[2022-10-27] MEDS ORDERED: NITROGLYCERIN 0.4MG SUBL TABLET SL PRN (14:25)
[2022-10-27] MEDS ORDERED: OSELTAMIVIR PHOSPHATE 75 MG CAP (TAMIFLU) PO ONE (14:30)
[2022-10-27] MEDS ORDERED: LEVALBUTEROL 1.25MG 0.5ML CONCENTRATE NEB INH PRN (14:40)
[2022-10-27] MEDS ORDERED: methylPREDNISolone 125MG 2ML VIAL IV ONE (15:00)
[2022-10-27] MEDS ORDERED: MOM 30ML SUSPENSION UDC PO PRN (15:30)
[2022-10-27] MEDS ORDERED: ACETAMINOPHEN TAB 650MG DOSE (2X325MG) PO PRN (15:30)
[2022-10-27] MEDS ORDERED: MAALOX 30 ML SUSP *UDC PO PRN (15:30)
[2022-10-27 15:43] LABS: MAGNESIUM LEVEL 1.7 MG/DL (1.8-2.4)
[2022-10-27] MEDS ORDERED: FLUT1BLS8 INH (15:57)
[2022-10-27] MEDS ORDERED: ALBU2.5V10 INH (15:57)
[2022-10-27] MEDS ORDERED: LEVA45AE INH (15:57)
[2022-10-27] MEDS ORDERED: PRED50TA PO (15:57)
[2022-10-27] MEDS ORDERED: NYST50SS SSP (15:59)
[2022-10-27] MEDS ORDERED: HOME MED LIST COMPLETE! XX SCH (16:00)
[2022-10-27] MEDS ORDERED: LEVALBUTEROL 1.25MG 0.5ML CONCENTRATE NEB INH SCH (16:00)
[2022-10-27] MEDS: IPRATROPIUM 0.5MG/ALBUTEROL 2.5MG INH SOL UD 3ML (DUONEB) NEB PRN ×3 (16:47→23:53)
[2022-10-27] MEDS: ADVAIR HFA 230/21MCG INHALER INH SCH (19:24)
[2022-10-27] MEDS: methylPREDNISolone 125MG 2ML VIAL IV SCH (20:01)
[2022-10-27] MEDS ORDERED: LORazepam 2 MG/ML VIAL IV STA ×3 (20:32→23:32)
[2022-10-27] MEDS: OMEPRAZOLE 20MG CAP PO SCH (21:00)
[2022-10-27] MEDS: DOCUSATE SODIUM 100MG CAPSULE PO SCH (21:00)
[2022-10-27] MEDS: NYSTATIN 500,000U/5ML SUSP UDC SSP SCH (21:00)
[2022-10-27] MEDS: OSELTAMIVIR PHOSPHATE 75 MG CAP (TAMIFLU) PO SCH (21:00)
[2022-10-27] MEDS: ENOXAPARIN 60MG/0.6ML SYRINGE (J1650 PER 10MG) SC SCH (21:00)
[2022-10-27 22:00] VITALS: BP 155/75
[2022-10-27] MEDS ORDERED: LEVALBUTEROL 1.25MG 0.5ML CONCENTRATE NEB NEB ONE (22:00)
[2022-10-27] MEDS ORDERED: ACETAMINOPHEN 1000MG 100ML IV BAG IV ONE (22:00)
[2022-10-27] MEDS: guaiFENesin ER 600 MG TAB PO SCH (22:30)
[2022-10-27 23:20] VITALS: BP 157/74
[2022-10-28] VITALS (19 sets, daily range): BP systolic 100–194; BP diastolic 59–101
[2022-10-28] MEDS ORDERED: UNRESOLVED CLARIFICATION ENTRY XX SCH (00:01)
[2022-10-28 01:31] LABS: ABG BASE EXCESS -3.8 (-2.0-2.0); ABG HCO3 25.5 MEQ/L (22.0-26.0); ABG O2 SATURATION 95.2 % (95.0-99.0); ABG PARTIAL PRESSURE O2 87.9 mmHg (75.0-100.0); ABG STANDARD HCO3 21.3 MEQ/L (22.0-26.0); ABG TOTAL CO2 27.6 MEQ/L (22.0-29.0)
[2022-10-28 01:33] LABS: ABG PARTIAL PRESSURE CO2 67.1 mmHg (35.0-45.0); ABG pH (ARTERIAL) 7.198 UNITS (7.350-7.450)
[2022-10-28] MEDS: IPRATROPIUM 0.5MG/ALBUTEROL 2.5MG INH SOL UD 3ML (DUONEB) NEB SCH ×4 (01:42→19:26)
[2022-10-28] MEDS ORDERED: LEVALBUTEROL 1.25MG 0.5ML CONCENTRATE NEB INH PRN (03:55)
[2022-10-28 04:16] LABS: ABG BASE EXCESS 0.6 (-2.0-2.0); ABG HCO3 30.2 MEQ/L (22.0-26.0); ABG O2 SATURATION 98.5 % (95.0-99.0); ABG PARTIAL PRESSURE O2 128.5 mmHg (75.0-100.0); ABG STANDARD HCO3 25.1 MEQ/L (22.0-26.0); ABG TOTAL CO2 32.5 MEQ/L (22.0-29.0)
[2022-10-28 04:19] LABS: ABG pH (ARTERIAL) 7.225 UNITS (7.350-7.450)
[2022-10-28 04:21] LABS: ABG PARTIAL PRESSURE CO2 74.7 mmHg (35.0-45.0)
[2022-10-28 05:36] LABS: BASO % 0.1 % (0.0-1.0); HEMATOCRIT 41.2 % (36.0-47.0); HEMOGLOBIN 12.3 g/dl (12.0-15.5); LYMPH # 0.3 10^3/uL (1.5-5.0); LYMPH % 2.4 % (24.0-44.0); MEAN CORPUSCULAR HEMOGLOBIN 24.5 pg (27.0-33.0); MEAN CORPUSCULAR HGB CONC 29.9 g/dl (32.0-36.5); MEAN CORPUSCULAR VOLUME 81.9 fl (80.0-96.0); MONO # 0.3 10^3/uL (0.0-0.8); MONO % 2.2 % (2.0-8.0); NEUTROPHILS # 10.9 10^3/uL (1.5-8.5); NEUTROPHILS % 94.7 % (36.0-66.0); PLATELET COUNT, AUTOMATED 313 10^3/uL (150-450); RED BLOOD COUNT 5.03 10^6/uL (4.00-5.40); WHITE BLOOD COUNT 11.5 10^3/uL (4.0-10.0)
[2022-10-28 05:48] LABS: ABG BASE EXCESS -0.6 (-2.0-2.0); ABG HCO3 27.8 MEQ/L (22.0-26.0); ABG O2 SATURATION 94.9 % (95.0-99.0); ABG PARTIAL PRESSURE O2 81.3 mmHg (75.0-100.0); ABG STANDARD HCO3 23.9 MEQ/L (22.0-26.0); ABG TOTAL CO2 29.8 MEQ/L (22.0-29.0); ABG pH (ARTERIAL) 7.258 UNITS (7.350-7.450)
[2022-10-28 05:49] LABS: ABG PARTIAL PRESSURE CO2 63.7 mmHg (35.0-45.0)
[2022-10-28 05:53] LABS: MAGNESIUM LEVEL 2.3 MG/DL (1.8-2.4)
[2022-10-28 05:55] LABS: BLOOD UREA NITROGEN 14 MG/DL (9-23); CARBON DIOXIDE LEVEL 27 MMOL/L (20-31); CHLORIDE LEVEL 104 MMOL/L (98-107); CREATININE FOR GFR 0.71 MG/DL (0.55-1.30); GLOMERULAR FILTRATION RATE > 60.0 (>51); GLUCOSE, FASTING 194 MG/DL (60-100); POTASSIUM SERUM 5.1 MMOL/L (3.5-5.1); SODIUM LEVEL 136 MMOL/L (136-145)
[2022-10-28] MEDS: methylPREDNISolone 125MG 2ML VIAL IV SCH ×3 (07:01→18:12)
[2022-10-28] MEDS: ADVAIR HFA 230/21MCG INHALER INH SCH ×2 (07:16→19:27)
[2022-10-28] MEDS ORDERED: FUROSEMIDE 40MG/4ML VIAL IV STA (07:22)
[2022-10-28] MEDS: BUDESONIDE 0.5 MG/2 ML INHALATION SUSPENSION INH SCH ×2 (08:07→19:26)
[2022-10-28] MEDS ORDERED: hydrALAZINE 20MG/ML 1ML VIAL IV STA (08:22)
[2022-10-28] MEDS: LevoFLOXacin IV 500 MG in IV 1 EA IV SCH (08:30)
[2022-10-28] MEDS: ENOXAPARIN 60MG/0.6ML SYRINGE (J1650 PER 10MG) SC SCH ×2 (08:31→20:40)
[2022-10-28 08:51] LABS: ABG BASE EXCESS -0.7 (-2.0-2.0); ABG HCO3 25.4 MEQ/L (22.0-26.0); ABG O2 SATURATION 99.6 % (95.0-99.0); ABG PARTIAL PRESSURE CO2 47.2 mmHg (35.0-45.0); ABG PARTIAL PRESSURE O2 220.3 mmHg (75.0-100.0); ABG TOTAL CO2 26.8 MEQ/L (22.0-29.0); ABG pH (ARTERIAL) 7.348 UNITS (7.350-7.450)
[2022-10-28] MEDS ORDERED: ENOXAPARIN 40MG/0.4ML SYRINGE (J1650 PER 10MG) SC SCH (09:00)
[2022-10-28] MEDS: DOCUSATE SODIUM 100MG CAPSULE PO SCH ×2 (11:08→20:40)
[2022-10-28] MEDS: NYSTATIN 500,000U/5ML SUSP UDC SSP SCH ×4 (11:08→20:40)
[2022-10-28] MEDS: CETIRIZINE (ZyrTEC) 10 MG TAB PO SCH (11:08)
[2022-10-28] MEDS: OMEPRAZOLE 20MG CAP PO SCH ×2 (11:09→20:41)
[2022-10-28] MEDS: guaiFENesin ER 600 MG TAB PO SCH ×2 (11:10→20:43)
[2022-10-28] MEDS: OSELTAMIVIR PHOSPHATE 75 MG CAP (TAMIFLU) PO SCH ×2 (11:17→20:42)
[2022-10-28] MEDS: IPRATROPIUM 0.5MG/ALBUTEROL 2.5MG INH SOL UD 3ML (DUONEB) NEB PRN (15:16)
[2022-10-28] MEDS ORDERED: hydrALAZINE 20MG/ML 1ML VIAL IV ONE (15:45)
[2022-10-28] MEDS ORDERED: hydrALAZINE 20MG/ML 1ML VIAL IV PRN (15:45)
[2022-10-28] MEDS: NICOTINE 21MG/24HR 1 EA TRANSDERMAL TD PRN (20:45)
[2022-10-29] VITALS (11 sets, daily range): BP systolic 115–159; BP diastolic 57–75
[2022-10-29] MEDS: methylPREDNISolone 125MG 2ML VIAL IV SCH ×4 (00:04→18:03)
[2022-10-29] MEDS: IPRATROPIUM 0.5MG/ALBUTEROL 2.5MG INH SOL UD 3ML (DUONEB) NEB SCH ×4 (01:37→19:45)
[2022-10-29 05:15] LABS: HEMATOCRIT 37.9 % (36.0-47.0); HEMOGLOBIN 11.3 g/dl (12.0-15.5); LYMPH # 0.6 10^3/uL (1.5-5.0); LYMPH % 6.1 % (24.0-44.0); MEAN CORPUSCULAR HEMOGLOBIN 24.5 pg (27.0-33.0); MEAN CORPUSCULAR HGB CONC 29.8 g/dl (32.0-36.5); MONO # 0.4 10^3/uL (0.0-0.8); MONO % 4.1 % (2.0-8.0); NEUTROPHILS # 8.4 10^3/uL (1.5-8.5); NEUTROPHILS % 89.5 % (36.0-66.0); PLATELET COUNT, AUTOMATED 296 10^3/uL (150-450); RED BLOOD COUNT 4.62 10^6/uL (4.00-5.40); WHITE BLOOD COUNT 9.4 10^3/uL (4.0-10.0)
[2022-10-29 05:35] LABS: MAGNESIUM LEVEL 2.3 MG/DL (1.8-2.4)
[2022-10-29 05:41] LABS: BLOOD UREA NITROGEN 28 MG/DL (9-23); CARBON DIOXIDE LEVEL 25 MMOL/L (20-31); CHLORIDE LEVEL 105 MMOL/L (98-107); CREATININE FOR GFR 0.72 MG/DL (0.55-1.30); GLOMERULAR FILTRATION RATE > 60.0 (>51); GLUCOSE, FASTING 160 MG/DL (60-100); POTASSIUM SERUM 4.6 MMOL/L (3.5-5.1); SODIUM LEVEL 138 MMOL/L (136-145)
[2022-10-29 05:57] LABS: ABG BASE EXCESS 2.3 (-2.0-2.0); ABG HCO3 28.1 MEQ/L (22.0-26.0); ABG O2 SATURATION 98.8 % (95.0-99.0); ABG PARTIAL PRESSURE CO2 48.8 mmHg (35.0-45.0); ABG STANDARD HCO3 26.5 MEQ/L (22.0-26.0); ABG TOTAL CO2 29.6 MEQ/L (22.0-29.0); ABG pH (ARTERIAL) 7.378 UNITS (7.350-7.450)
[2022-10-29] MEDS: BUDESONIDE 0.5 MG/2 ML INHALATION SUSPENSION INH SCH ×2 (07:18→19:45)
[2022-10-29] MEDS: ADVAIR HFA 230/21MCG INHALER INH SCH ×2 (07:18→19:45)
[2022-10-29] MEDS: LevoFLOXacin IV 500 MG in IV 1 EA IV SCH (08:10)
[2022-10-29] MEDS: CETIRIZINE (ZyrTEC) 10 MG TAB PO SCH (08:11)
[2022-10-29] MEDS: guaiFENesin ER 600 MG TAB PO SCH ×2 (08:11→21:22)
[2022-10-29] MEDS: OMEPRAZOLE 20MG CAP PO SCH ×2 (08:11→21:22)
[2022-10-29] MEDS: NYSTATIN 500,000U/5ML SUSP UDC SSP SCH ×4 (08:11→21:22)
[2022-10-29] MEDS: DOCUSATE SODIUM 100MG CAPSULE PO SCH ×2 (08:12→20:15)
[2022-10-29] MEDS: ENOXAPARIN 60MG/0.6ML SYRINGE (J1650 PER 10MG) SC SCH ×2 (08:12→21:24)
[2022-10-29] MEDS: OSELTAMIVIR PHOSPHATE 75 MG CAP (TAMIFLU) PO SCH ×2 (08:12→21:23)
[2022-10-29] MEDS: NICOTINE 21MG/24HR 1 EA TRANSDERMAL TD PRN (21:33)
[2022-10-30] VITALS (11 sets, daily range): BP systolic 120–152; BP diastolic 56–79; O2SAT 87–90
[2022-10-30] MEDS: methylPREDNISolone 125MG 2ML VIAL IV SCH ×2 (00:45→06:34)
[2022-10-30] MEDS: IPRATROPIUM 0.5MG/ALBUTEROL 2.5MG INH SOL UD 3ML (DUONEB) NEB SCH ×4 (02:45→17:12)
[2022-10-30 04:55] LABS: HEMATOCRIT 36.4 % (36.0-47.0); HEMOGLOBIN 10.9 g/dl (12.0-15.5); LYMPH # 0.6 10^3/uL (1.5-5.0); MEAN CORPUSCULAR HEMOGLOBIN 24.3 pg (27.0-33.0); MEAN CORPUSCULAR HGB CONC 29.9 g/dl (32.0-36.5); MEAN CORPUSCULAR VOLUME 81.3 fl (80.0-96.0); MONO # 0.4 10^3/uL (0.0-0.8); MONO % 5.4 % (2.0-8.0); NEUTROPHILS # 5.9 10^3/uL (1.5-8.5); NEUTROPHILS % 85.2 % (36.0-66.0); PLATELET COUNT, AUTOMATED 232 10^3/uL (150-450); RED BLOOD COUNT 4.48 10^6/uL (4.00-5.40); WHITE BLOOD COUNT 6.9 10^3/uL (4.0-10.0)
[2022-10-30 05:19] LABS: MAGNESIUM LEVEL 2.1 MG/DL (1.8-2.4)
[2022-10-30 05:21] LABS: BLOOD UREA NITROGEN 28 MG/DL (9-23); CALCIUM LEVEL 8.9 MG/DL (8.5-10.1); CARBON DIOXIDE LEVEL 28 MMOL/L (20-31); CHLORIDE LEVEL 105 MMOL/L (98-107); CREATININE FOR GFR 0.72 MG/DL (0.55-1.30); GLOMERULAR FILTRATION RATE > 60.0 (>51); GLUCOSE, FASTING 197 MG/DL (60-100); POTASSIUM SERUM 4.9 MMOL/L (3.5-5.1); SODIUM LEVEL 138 MMOL/L (136-145)
[2022-10-30] MEDS: BUDESONIDE 0.5 MG/2 ML INHALATION SUSPENSION INH SCH ×2 (07:42→19:05)
[2022-10-30] MEDS: ADVAIR HFA 230/21MCG INHALER INH SCH ×2 (07:42→19:06)
[2022-10-30] MEDS: ENOXAPARIN 60MG/0.6ML SYRINGE (J1650 PER 10MG) SC SCH ×2 (10:10→20:32)
[2022-10-30] MEDS: OSELTAMIVIR PHOSPHATE 75 MG CAP (TAMIFLU) PO SCH ×2 (10:10→20:31)
[2022-10-30] MEDS: LevoFLOXacin IV 500 MG in IV 1 EA IV SCH (10:10)
[2022-10-30] MEDS: CETIRIZINE (ZyrTEC) 10 MG TAB PO SCH (10:11)
[2022-10-30] MEDS: NYSTATIN 500,000U/5ML SUSP UDC SSP SCH ×4 (10:11→20:32)
[2022-10-30] MEDS: DOCUSATE SODIUM 100MG CAPSULE PO SCH ×2 (10:11→20:30)
[2022-10-30] MEDS: guaiFENesin ER 600 MG TAB PO SCH ×2 (10:12→20:32)
[2022-10-30] MEDS: OMEPRAZOLE 20MG CAP PO SCH ×2 (10:12→20:31)
[2022-10-30] MEDS: predniSONE 20 MG TAB PO SCH (20:30)
[2022-10-30] MEDS: NICOTINE 21MG/24HR 1 EA TRANSDERMAL TD PRN (21:35)
[2022-10-31] VITALS (8 sets, daily range): BP systolic 121–146; BP diastolic 57–81; O2SAT 90–94
[2022-10-31] MEDS: IPRATROPIUM 0.5MG/ALBUTEROL 2.5MG INH SOL UD 3ML (DUONEB) NEB SCH ×2 (02:00→07:57)
[2022-10-31 04:53] LABS: HEMATOCRIT 37.1 % (36.0-47.0); HEMOGLOBIN 11.1 g/dl (12.0-15.5); LYMPH % 17.6 % (24.0-44.0); MEAN CORPUSCULAR HEMOGLOBIN 24.6 pg (27.0-33.0); MEAN CORPUSCULAR HGB CONC 29.9 g/dl (32.0-36.5); MEAN CORPUSCULAR VOLUME 82.1 fl (80.0-96.0); MONO # 0.3 10^3/uL (0.0-0.8); MONO % 5.3 % (2.0-8.0); NEUTROPHILS # 4.5 10^3/uL (1.5-8.5); NEUTROPHILS % 76.8 % (36.0-66.0); PLATELET COUNT, AUTOMATED 221 10^3/uL (150-450); RED BLOOD COUNT 4.52 10^6/uL (4.00-5.40); WHITE BLOOD COUNT 5.8 10^3/uL (4.0-10.0)
[2022-10-31 05:13] LABS: MAGNESIUM LEVEL 1.9 MG/DL (1.8-2.4)
[2022-10-31 05:15] LABS: BLOOD UREA NITROGEN 17 MG/DL (9-23); CALCIUM LEVEL 8.7 MG/DL (8.5-10.1); CARBON DIOXIDE LEVEL 25 MMOL/L (20-31); CHLORIDE LEVEL 106 MMOL/L (98-107); CREATININE FOR GFR 0.68 MG/DL (0.55-1.30); GLOMERULAR FILTRATION RATE > 60.0 (>51); GLUCOSE, FASTING 212 MG/DL (60-100); POTASSIUM SERUM 4.3 MMOL/L (3.5-5.1); SODIUM LEVEL 137 MMOL/L (136-145)
[2022-10-31] MEDS: LevoFLOXacin IV 500 MG in IV 1 EA IV SCH (07:49)
[2022-10-31] MEDS: ADVAIR HFA 230/21MCG INHALER INH SCH (07:57)
[2022-10-31] MEDS: BUDESONIDE 0.5 MG/2 ML INHALATION SUSPENSION INH SCH (07:57)
[2022-10-31] MEDS: DOCUSATE SODIUM 100MG CAPSULE PO SCH (08:07)
[2022-10-31] MEDS: OMEPRAZOLE 20MG CAP PO SCH (08:11)
[2022-10-31] MEDS: predniSONE 20 MG TAB PO SCH (08:11)
[2022-10-31] MEDS: CETIRIZINE (ZyrTEC) 10 MG TAB PO SCH (08:11)
[2022-10-31] MEDS: OSELTAMIVIR PHOSPHATE 75 MG CAP (TAMIFLU) PO SCH (08:12)
[2022-10-31] MEDS: guaiFENesin ER 600 MG TAB PO SCH (08:12)
[2022-10-31] MEDS: ENOXAPARIN 60MG/0.6ML SYRINGE (J1650 PER 10MG) SC SCH ×2 (08:12→08:15)
[2022-10-31] MEDS: NYSTATIN 500,000U/5ML SUSP UDC SSP SCH (08:12)
[2022-10-31] MEDS ORDERED: PRED10TA2 PO (08:50)
[2022-10-31] MEDS ORDERED: LEVO1TAB39 PO (08:50)
[2022-10-31] MEDS ORDERED: ADV250INH INH (08:50)
[2022-10-31] MEDS ORDERED: OSEL75CA2 PO (08:50)
[2022-11-01] MEDS ORDERED: LevoFLOXacin 500 MG TABLET PO SCH (06:00)
== END 2022-10-31 10:38 | disposition home or self-care (01) | DRG 141 ==
LOC: EDBD 12:56 → M ED 12:56 → M ED INP 15:30 → M ICU 21:25
PROVIDERS: ADMIT Internal Medicine; ATTEND Internal Medicine
DX: J45.901 Unspecified asthma with (acute) exacerbation (principal); J96.01 Acute respiratory failure with hypoxia; J96.02 Acute respiratory failure with hypercapnia; E66.2 Morbid (severe) obesity with alveolar hypoventilation; K21.9 Gastro-esophageal reflux disease without esophagitis; J10.1 Influenza due to other identified influenza virus with other respiratory manifestations; I10 Essential (primary) hypertension; F41.9 Anxiety disorder, unspecified; J20.2 Acute bronchitis due to streptococcus; M54.30 Sciatica, unspecified side; R00.0 Tachycardia, unspecified; Z79.899 Other long term (current) drug therapy; Z88.8 Allergy status to other drugs, medicaments and biological substances

== ENCOUNTER → 2022-11-10 | Outpatient (CLI) | payer OTHER ==
[~2022-11-10] MED LIST changes: +ADV250INH INH; +ALBU2.5V10 INH; +FLUT1BLS8 INH; +LEVO1TAB39 PO; +NYST-38 SSP; +OSEL75CA2 PO
== END ==
LOC: M SLEEP HO 08:31
PROVIDERS: ATTEND Nurse Practitioner Adult Health
DX: G47.30 Sleep apnea, unspecified (principal)

== ENCOUNTER → 2022-12-08 | Outpatient (CLI) | payer OTHER ==
[2022-12-08 10:24] LABS: ALBUMIN 3.3 G/DL (3.2-5.2); ALKALINE PHOSPHATASE 72 U/L (46-116); ALT/SGPT 36 U/L (7.0-40); AST/SGOT 26 U/L (<34); BILIRUBIN,TOTAL 0.4 MG/DL (0.3-1.2); BLOOD UREA NITROGEN 12 MG/DL (9-23); CALCIUM LEVEL 9.1 MG/DL (8.5-10.1); CARBON DIOXIDE LEVEL 29 MMOL/L (20-31); CHLORIDE LEVEL 106 MMOL/L (98-107); CHOLESTEROL LEVEL 196 MG/DL (<200); CHOLESTEROL RISK RATIO 4.03 (<5); CREATININE FOR GFR 0.79 MG/DL (0.55-1.30); GLOMERULAR FILTRATION RATE > 60.0 (>51); GLUCOSE, FASTING 141 MG/DL (60-100); HDL CHOLESTEROL 48.6 MG/DL (>40); LDL CHOLESTEROL 105.2 MG/DL (<100); NON-HDL-C 147 MG/DL; POTASSIUM SERUM 4.4 MMOL/L (3.5-5.1); SODIUM LEVEL 141 MMOL/L (136-145); TOTAL PROTEIN 6.3 G/DL (5.7-8.2); TRIGLYCERIDES LEVEL 211 MG/DL (<150)
[2022-12-08 10:35] LABS: HEMOGLOBIN A1c 6.7 % (4.0-6.0)
== END ==
LOC: M LAB 08:19
PROVIDERS: ATTEND Family Medicine
DX: J45.41 Moderate persistent asthma with (acute) exacerbation (principal); E66.01 Morbid (severe) obesity due to excess calories; I10 Essential (primary) hypertension; F17.210 Nicotine dependence, cigarettes, uncomplicated; Z68.43 Body mass index [BMI] 50.0-59.9, adult

== ENCOUNTER → 2023-01-14 | Outpatient (CLI) | payer OTHER | LOC: M SLEEP 20:00 | PROVIDERS: ATTEND Nurse Practitioner Adult Health | DX: G47.33 Obstructive sleep apnea (adult) (pediatric) (principal) ==

== ENCOUNTER → 2023-05-31 | Outpatient (CLI) | payer OTHER ==
[~2023-05-31] MED LIST changes: +FLUT50SP17 NARES; -FLUTISP NARES
[2023-05-31 18:00] LABS: HEMOGLOBIN A1c 6.5 % (4.0-6.0)
[2023-05-31 18:04] LABS: BLOOD UREA NITROGEN 10 MG/DL (9-23); CALCIUM LEVEL 8.5 MG/DL (8.5-10.1); CARBON DIOXIDE LEVEL 26 MMOL/L (20-31); CHLORIDE LEVEL 107 MMOL/L (98-107); CREATININE FOR GFR 0.65 MG/DL (0.55-1.30); GLOMERULAR FILTRATION RATE > 60.0 (>51); GLUCOSE, FASTING 130 MG/DL (60-100); POTASSIUM SERUM 4.2 MMOL/L (3.5-5.1); SODIUM LEVEL 141 MMOL/L (136-145)
== END ==
LOC: M LAB 16:56
PROVIDERS: ATTEND Family Medicine
DX: R73.03 Prediabetes (principal)

== ENCOUNTER → 2023-05-31 | Outpatient (CLI) | payer OTHER | LOC: M RAD 16:53 | PROVIDERS: ATTEND Nurse Practitioner Adult Health | DX: R91.8 Other nonspecific abnormal finding of lung field (principal) ==

== ENCOUNTER → 2023-07-20 | Outpatient (CLI) | payer OTHER ==
[~2023-07-20] MED LIST changes: -GABA-283 PO; +GABA-284 PO
== END ==
LOC: M WHC 07:21
PROVIDERS: ATTEND Family Medicine
DX: Z12.31 Encounter for screening mammogram for malignant neoplasm of breast (principal)

== ENCOUNTER → 2024-07-30 | Outpatient (REF) | payer OTHER ==
[~2024-07-30] MED LIST changes: -FLUT50SP17 NARES; +FLUTISP NARES
[2024-07-30 12:46] LABS: BASO # 0.1 10^3/uL (0.0-0.2); BASO % 0.9 % (0.0-1.0); EOS # 0.4 10^3/uL (0.0-0.5); EOS % 6.8 % (0.0-3.0); HEMATOCRIT 43.1 % (36.0-47.0); HEMOGLOBIN 13.6 g/dl (12.0-15.5); LYMPH # 1.8 10^3/uL (1.5-5.0); LYMPH % 32.9 % (24.0-44.0); MEAN CORPUSCULAR HEMOGLOBIN 26.3 pg (27.0-33.0); MEAN CORPUSCULAR HGB CONC 31.6 g/dl (32.0-36.5); MEAN CORPUSCULAR VOLUME 83.4 fl (80.0-96.0); MONO # 0.4 10^3/uL (0.0-0.8); MONO % 8.3 % (2.0-8.0); NEUTROPHILS # 2.7 10^3/uL (1.5-8.5); NEUTROPHILS % 50.9 % (36.0-66.0); PLATELET COUNT, AUTOMATED 280 10^3/uL (150-450); RED BLOOD COUNT 5.17 10^6/uL (4.00-5.40); WHITE BLOOD COUNT 5.3 10^3/uL (4.0-10.0)
[2024-07-30 13:12] LABS: CREATININE, URINE 49.4 MG/DL; MALB URINE SIEMENS < 3.0 MG/L
[2024-07-30 13:13] LABS: HEMOGLOBIN A1c 6.1 % (4.0-6.0)
[2024-07-30 13:14] LABS: ALBUMIN 3.8 G/DL (3.2-5.2); ALKALINE PHOSPHATASE 93 U/L (46-116); ALT/SGPT 26 U/L (7.0-40); AST/SGOT 14 U/L (<34); BILIRUBIN,TOTAL 0.4 MG/DL (0.3-1.2); BLOOD UREA NITROGEN 14 MG/DL (9-23); CALCIUM LEVEL 9.3 MG/DL (8.5-10.1); CARBON DIOXIDE LEVEL 27 MMOL/L (20-31); CHLORIDE LEVEL 106 MMOL/L (98-107); CHOLESTEROL LEVEL 232 MG/DL (<200); CHOLESTEROL RISK RATIO 4.83 (<5); CREATININE FOR GFR 0.78 MG/DL (0.55-1.30); GLOMERULAR FILTRATION RATE > 60.0 (>51); GLUCOSE, FASTING 115 MG/DL (60-100); LDL CHOLESTEROL 132.4 MG/DL (<100); POTASSIUM SERUM 4.4 MMOL/L (3.5-5.1); SODIUM LEVEL 137 MMOL/L (136-145); TOTAL PROTEIN 7.4 G/DL (5.7-8.2); TRIGLYCERIDES LEVEL 258 MG/DL (<150)
== END ==
LOC: M SFHCLERA 08:49
PROVIDERS: ATTEND Family Medicine
DX: Z00.00 Encounter for general adult medical examination without abnormal findings (principal)

== ENCOUNTER → 2024-09-24 | Outpatient (CLI) | payer OTHER ==
[~2024-09-24] MED LIST changes: +LEVA15HF2 INH; -LEVAINH INH
== END ==
LOC: M RAD 07:31
PROVIDERS: ATTEND Nurse Practitioner Adult Health
DX: Z87.891 Personal history of nicotine dependence (principal)

== ENCOUNTER 2024-10-23 00:34 | Inpatient (IN) | payer OTHER ==
[~2024-10-23] VITALS: Ht 165.1 cm; Wt 154.5 kg
[~2024-10-23 00:34] MED LIST changes: -ADV250INH INH; +ADVA1AER9 INH
[2024-10-23] MEDS: LEVALBUTEROL 1.25MG 0.5ML CONCENTRATE NEB NEB ONE ×3 (01:02→03:32)
[2024-10-23 01:39] LABS: BASO % 0.2 % (0.0-1.0); HEMATOCRIT 38.3 % (36.0-47.0); HEMOGLOBIN 12.3 g/dl (12.0-15.5); LYMPH # 0.6 10^3/uL (1.5-5.0); LYMPH % 5.6 % (24.0-44.0); MEAN CORPUSCULAR HEMOGLOBIN 26.8 pg (27.0-33.0); MEAN CORPUSCULAR HGB CONC 32.1 g/dl (32.0-36.5); MEAN CORPUSCULAR VOLUME 83.4 fl (80.0-96.0); MONO # 0.2 10^3/uL (0.0-0.8); NEUTROPHILS # 9.5 10^3/uL (1.5-8.5); NEUTROPHILS % 91.9 % (36.0-66.0); PLATELET COUNT, AUTOMATED 227 10^3/uL (150-450); RED BLOOD COUNT 4.59 10^6/uL (4.00-5.40); WHITE BLOOD COUNT 10.3 10^3/uL (4.0-10.0)
[2024-10-23 02:03] LABS: ALBUMIN 3.4 G/DL (3.2-5.2); ALKALINE PHOSPHATASE 73 U/L (35-104); ALT/SGPT 28 U/L (7.0-40); AST/SGOT 18 U/L (<34); BILIRUBIN,DIRECT < 0.1 MG/DL (<0.4); BILIRUBIN,TOTAL 0.3 MG/DL (0.3-1.2); BLOOD UREA NITROGEN 18 MG/DL (9-23); CALCIUM LEVEL 9.2 MG/DL (8.5-10.1); CARBON DIOXIDE LEVEL 25 MMOL/L (20-31); CHLORIDE LEVEL 104 MMOL/L (98-107); CREATININE FOR GFR 0.83 MG/DL (0.55-1.30); GLOMERULAR FILTRATION RATE > 60.0 (>51); GLUCOSE, FASTING 199 MG/DL (60-100); SODIUM LEVEL 139 MMOL/L (136-145); TOTAL PROTEIN 7.1 G/DL (5.7-8.2)
[2024-10-23] MEDS: methylPREDNISolone 125MG 2ML VIAL IV ONE (02:24)
[2024-10-23] MEDS ORDERED: METH4TAB8 PO (04:06)
[2024-10-23] MEDS ORDERED: MUCI600T31 PO (04:06)
[2024-10-23] MEDS ORDERED: HOME MED LIST COMPLETE! XX SCH (04:10)
[2024-10-23] MEDS ORDERED: ISOVUE-370 76% 100ML VIAL As Ordered ONE (04:39)
[2024-10-23] MEDS: guaiFENesin ER TABLET 600 MG TAB PO SCH (05:49)
[2024-10-23] MEDS: NICOTINE 14 MG/24 HR TRANSDERMAL TD ONE (05:49)
[2024-10-23] MEDS: SYMBICORT 80/4.5MCG INHALER 6GM INH SCH (06:46)
[2024-10-23] MEDS: LEVALBUTEROL 1.25MG 0.5ML CONCENTRATE NEB NEB SCH ×2 (06:47→10:17)
[2024-10-23 07:43] LABS: C REACTIVE PROTEIN QUANTITATIV 1.02 MG/DL (<1.0)
[2024-10-23 07:55] LABS: PROCALCITONIN 0.05 ng/ml
[2024-10-23] MEDS: PIPERACILLIN/TAZOBACTAM SOD 4.5 GM in DEXTROSE 5% (D5W) ADV/MINI-BAG 50 ML IV SCH (08:45)
[2024-10-23] MEDS: OMEPRAZOLE 20MG CAP PO SCH (08:45)
[2024-10-23] MEDS: MONTELUKAST 10 MG TAB PO SCH (08:45)
[2024-10-23] MEDS: ENOXAPARIN 60MG/0.6ML SYRINGE (J1650 PER 10MG) SC SCH (09:09)
[2024-10-23] MEDS: predniSONE 50 MG TAB PO SCH (09:43)
[2024-10-23 10:21] LABS: MAGNESIUM LEVEL 1.6 MG/DL (1.8-2.4)
[2024-10-23] MEDS: ACETAMINOPHEN 325 MG TAB PO PRN (10:41)
[2024-10-23 10:51] LABS: ABG BASE EXCESS -0.2 (-2.0-2.0); ABG HCO3 23.1 MMOL/L (22.0-26.0); ABG O2 SATURATION 96.8 % (95.0-99.0); ABG PARTIAL PRESSURE CO2 33.7 mmHg (35.0-45.0); ABG PARTIAL PRESSURE O2 83.6 mmHg (75.0-100.0); ABG STANDARD HCO3 24.3 MMOL/L. (22.0-26.0); ABG TOTAL CO2 24.1 MMOL/L (22.0-29.0); ABG pH (ARTERIAL) 7.453 UNITS (7.350-7.450)
[2024-10-23] MEDS ORDERED: MAGNESIUM SULFATE IN WATER 2 GM in IV 1 EA IV STA (11:46)
[2024-10-23 11:47] VITALS: BP 134/69; TEMP 98.3; O2SAT 93
[2024-10-23] MEDS: MAG SULF 1GM/100ML (MAG RUN) IV SCH (12:35)
[2024-10-23 14:06] VITALS: BP 142/63; TEMP 97.5; O2SAT 94
[2024-10-23] MEDS: methylPREDNISolone 125MG 2ML VIAL IV SCH (15:14)
[2024-10-23 15:25] VITALS: O2SAT 94
[2024-10-23 17:36] LABS: VENOUS BASE EXCESS 1.3 (-2.0-2.0); VENOUS HCO3 26.1 MMOL/L (23.0-27.0); VENOUS O2 SATURATION 71.7 % (60.0-80.0); VENOUS PARTIAL PRESSURE CO2 42.1 mmHg (38.0-50.0); VENOUS PARTIAL PRESSURE O2 41.2 mmHg (30.0-50.0); VENOUS PH 7.411 UNITS (7.330-7.430); VENOUS TOTAL CO2 27.4 MMOL/L (24.0-28.0)
[2024-10-23 20:09] VITALS: BP 136/65; TEMP 97.3; O2SAT 94
[2024-10-24] VITALS (19 sets, daily range): BP systolic 108–134; BP diastolic 59–66; TEMP 97.2–97.9; O2SAT 92–99
[2024-10-24 08:26] LABS: HEMATOCRIT 40.9 % (36.0-47.0); HEMOGLOBIN 13.1 g/dl (12.0-15.5); LYMPH % 11.7 % (24.0-44.0); MEAN CORPUSCULAR VOLUME 84.3 fl (80.0-96.0); MONO # 0.3 10^3/uL (0.0-0.8); MONO % 3.5 % (2.0-8.0); NEUTROPHILS # 7.3 10^3/uL (1.5-8.5); NEUTROPHILS % 84.3 % (36.0-66.0); PLATELET COUNT, AUTOMATED 275 10^3/uL (150-450); RED BLOOD COUNT 4.85 10^6/uL (4.00-5.40); WHITE BLOOD COUNT 8.6 10^3/uL (4.0-10.0)
[2024-10-24 08:44] LABS: BLOOD UREA NITROGEN 20 MG/DL (9-23); CALCIUM LEVEL 9.3 MG/DL (8.5-10.1); CARBON DIOXIDE LEVEL 25 MMOL/L (20-31); CHLORIDE LEVEL 107 MMOL/L (98-107); CREATININE FOR GFR 0.72 MG/DL (0.55-1.30); GLOMERULAR FILTRATION RATE > 60.0 (>51); GLUCOSE, FASTING 172 MG/DL (60-100); POTASSIUM SERUM 4.7 MMOL/L (3.5-5.1); SODIUM LEVEL 140 MMOL/L (136-145)
[2024-10-24] MEDS: NICOTINE 21MG/24HR 1 EA TRANSDERMAL TD SCH (09:25)
[2024-10-24] MEDS: DOXYCYCLINE HYCLATE 100MG TABLET PO SCH (09:29)
[2024-10-25] VITALS (13 sets, daily range): BP systolic 138; BP diastolic 69; TEMP 97.7; O2SAT 92–98
[2024-10-25] MEDS ORDERED: PRED10TA2 PO (08:23)
[2024-10-25] MEDS ORDERED: DOXY100T PO (08:23)
[2024-10-25] MEDS ORDERED: NICO21PAT TD (08:23)
[2024-10-25] MEDS: predniSONE 50 MG TAB PO SCH (09:10)
== END 2024-10-25 11:02 | disposition home or self-care (01) | DRG 193 ==
LOC: M ED 00:34 → EDBD 00:34 → M ED INP 03:27 → M MS4PR 14:06
PROVIDERS: ADMIT Family Medicine; ATTEND Family Medicine
DX: J12.1 Respiratory syncytial virus pneumonia (principal); J96.01 Acute respiratory failure with hypoxia; J45.901 Unspecified asthma with (acute) exacerbation; I10 Essential (primary) hypertension; E66.9 Obesity, unspecified; K21.9 Gastro-esophageal reflux disease without esophagitis; G47.33 Obstructive sleep apnea (adult) (pediatric); Z90.49 Acquired absence of other specified parts of digestive tract; F17.210 Nicotine dependence, cigarettes, uncomplicated; Z79.899 Other long term (current) drug therapy; Z88.0 Allergy status to penicillin; Z91.048 Other nonmedicinal substance allergy status

== ENCOUNTER → 2024-12-12 | Outpatient (CLI) | payer OTHER ==
[~2024-12-12] MED LIST changes: +DOXY100T PO; +ISOVUE-300 61% 100ML VIAL ONE; +METH4TAB8 PO
== END ==
LOC: M PLAIMG 07:55
PROVIDERS: ATTEND Nurse Practitioner Adult Health
DX: R91.8 Other nonspecific abnormal finding of lung field (principal)
CPT/HCPCS: 71260; Q9967